=== PATIENT | male | born 1935 | race Caucasian/White ===

== ENCOUNTER 2019-05-25 18:42 | Inpatient (IN) | payer MEDICARE, OTHER ==
[2019-05-25] MEDS ORDERED: Sodium Chloride 0.9% 10 ML Syringe FLUSH PRN (19:06)
[2019-05-25] MEDS ORDERED: Adenosine 6 MG/2 ML SDV IVPUSH ONE (19:06)
[2019-05-25] MEDS ORDERED: Diltiazem 50 MG/10 ML SDV IVPUSH ONE (19:17)
[2019-05-25] MEDS ORDERED: Sodium Chloride 0.9% 1,000 ML IV SCH (19:30)
--- NOTE | 2019-05-25 19:34 | EDM.PDOC ---
ED HPI GENERAL MEDICAL PROBLEM - General Chief Complaint: Respiratory Problem Stated Complaint: poss influenza Time Seen by Provider: 05/25/19 18:59 Source of Information: Reports: Patient, Family (son), RN Notes Reviewed - History of Present Illness INITIAL COMMENTS - FREE TEXT/NARRATIVE: 83 year old male is brought to the ED by his son feeling weak, dizzy short of breath, hypoxic with tachycardia. He has dementia so unable to give any meaningful hx. His son states this seems to have started yesterday. He mostly sat in his chair at home last evening and all day today. He is found to have fever, his son and patient have no idea when that may have started. Occasional cough. Pt was dusky on arrival with sats in the mid 80's but denied chest pain or difficulty breathing although he was obviously tachypnic and in resp. distress on arrival to ED. His son states he has not been eating, drinking or taking his meds for yesterday or today. Hx of heart valve replacement 5 or more yrs ago. Son has gone home to get his meds. Son tells me that he did not get a flu shot this year. He was not feeling well 5 to 6 days ago, was better for a day or 2 and than as stated much more ill yesterday and today. There has been no vomiting, diarrhea and not been been coughing much according to his son that looks after him. Sone states he had a fib before his heart valve surgery, not sure if he has been in a fib after that or not. - Related Data Allergies Allergy/AdvReac Type Severity Reaction Status Date / Time No Known Allergies Allergy Verified 05/25/19 19:00 Home Meds: Home Meds Aspirin [Adult Low Dose Aspirin EC] 81 mg PO DAILY 10/25/13 [History] Finasteride [Proscar] 5 mg PO DAILY 10/25/13 [History] Furosemide [Lasix] 10 mg PO DAILY 10/25/13 [History] Metoprolol Tartrate [Lopressor] 50 mg PO Q12HR 10/25/13 [History] Multivit-Min/FA/Lycopene/Lut [Centrum Silver] 1 each PO DAILY 10/25/13 [History] Rosuvastatin [Crestor] 5 mg PO DAILY 10/25/13 [History] Aspirin [Lite Coat Aspirin] 81 mg PO DAILY 07/16/15 [History] Denosumab [Prolia] 60 mg IM Q6M 08/09/15 [History] Past Medical History HEENT History: Reports: Impaired Vision Cardiovascular History: Reports: Heart Valve Replacement, Hypertension, Other ( See Below) Other Cardiovascular History: aortic valve replacement about 2 yrs ago Respiratory History: Reports: SOB Genitourinary History: Reports: Renal Calculus Neurological History: Reports: None Psychiatric History: Reports: None Endocrine/Metabolic History: Reports: Obesity/BMI 30+ Hematologic History: Reports: None Immunologic History: Reports: None Oncologic (Cancer) History: Reports: Prostate Dermatologic History: Reports: None - Infectious Disease History Infectious Disease History: Reports: None - Past Surgical History HEENT Surgical History: Reports: Cataract Surgery Cardiovascular Surgical History: Reports: Valve Replacement GI Surgical History: Reports: Appendectomy, Cholecystectomy, Colonoscopy Musculoskeletal Surgical History: Reports: Knee Replacement Social & Family History - Tobacco Use Smoking Status *Q: Never Smoker - Caffeine Use Caffeine Use: Reports: Coffee - Recreational Drug Use Recreational Drug Use: No ED ROS GENERAL - Review of Systems Review Of Systems: Unable To Obtain Reason Not Obtained: patient has dementia, cannot provide any meaningful hx ED EXAM, GENERAL - Physical Exam Exam: See Below Exam Limited By: Altered Mental Status (patient is alert but has severe dementia , no short term memory for detail) General Appearance: Moderate Distress Eye Exam: Bilateral Eye: PERRL Nose: Normal Inspection Throat/Mouth: Other (oral mucosa very dry) Head: Atraumatic Neck: Supple, Other (No JVD) Respiratory/Chest: Respiratory Distress (moderate tachypnea), Rhonchi (mild bilat). No: Wheezing Cardiovascular: Tachycardia (regular) GI/Abdominal: Soft, Non-Tender Extremities: No: Pedal Edema, Leg Pain, Increased Warmth, Redness Neurological: Alert, No Motor/Sensory Deficits, Memory Loss Recent Events Skin Exam: Warm, Dry, Other (mildl dusky on arrival to ED). No: Rash EKG INTERPRETATION EKG Date: 05/25/19 Rhythm: Other (Wide QRS tachycardia) Rate (Beats/Min): 149 QRS: RBBB ST-T: Other (Diffuse nonspecific ST changes) Course - Vital Signs Last Recorded V/S: Last Vital Signs Temp 99.9 F 05/25/19 20:10 Pulse 149 H 05/25/19 18:57 Resp 28 H 05/25/19 18:57 BP 147/86 H 05/25/19 18:57 Pulse Ox 97 05/25/19 22:15 - Orders/Labs/Meds Orders: Active Orders 24 hr Category Date Time Status Patient Status [ADT] Routine ADT 05/25/19 20:26 Active Bedrest Bathroom Privileges [RC] ASDIRECTED Care 05/25/19 20:26 Active Blood Glucose Check, Bedside [RC] Q6HR Care 05/25/19 20:26 Active Cardiac Monitoring [RC] CONTINUOUS Care 05/25/19 20:30 Active EKG 12 Lead [EKG Documentation Completion] [RC] STAT Care 05/25/19 19:05 Active Intake and Output [RC] 04,16 Care 05/25/19 20:30 Active Oxygen Therapy [RC] ASDIRECTED Care 05/25/19 19:06 Active Oxygen Therapy [RC] PRN Care 05/25/19 20:26 Active Peripheral IV Care [RC] Q2HR Care 05/25/19 19:06 Active Pulse Oximetry [RC] CONTINUOUS Care 05/25/19 20:30 Active RT Aerosol Therapy [RC] ASDIRECTED Care 05/25/19 20:32 Active Up With Assistance [RC] ASDIRECTED Care 05/25/19 20:26 Active VTE/DVT Education [RC] PER UNIT ROUTINE Care 05/25/19 20:26 Active Vital Signs [RC] Q4HR Care 05/25/19 20:26 Active Nothing per Oral Now Diet [DIET] Diet 05/26/19 Breakfast Active BASIC METABOLIC PANEL,BMP [CHEM] AM Lab 05/26/19 05:11 Ordered CBC WITH AUTO DIFF [HEME] AM Lab 05/26/19 05:11 Ordered CULTURE BLOOD [BC] Stat Lab 05/25/19 19:40 Received CULTURE BLOOD [BC] Stat Lab 05/25/19 20:07 Received MAGNESIUM [CHEM] AM Lab 05/26/19 05:11 Ordered PHOSPHORUS [CHEM] AM Lab 05/26/19 05:11 Ordered PROCALCITONIN [REF] Stat Lab 05/25/19 20:33 Ordered RESPIRATORY PANEL Stat Lab 05/25/19 20:12 Received STREP PNEUMONIAE ANTIGEN [MREF] Stat Lab 05/25/19 20:26 Ordered Albuterol/Ipratropium [DuoNeb 3.0-0.5 MG/3 ML] Med 05/25/19 20:26 Active 3 ml NEB Q4H PRN Diltiazem 125 mg Med 05/25/19 20:30 Active Sodium Chloride 0.9% [Normal Saline] 100 ml IV TITRATE Lactated Ringers [Ringers, Lactated] 1,000 ml Med 05/25/19 20:30 Active IV ASDIRECTED Oseltamivir [Tamiflu] Med 05/25/19 21:00 Active 75 mg PO BID Sodium Chloride 0.9% [Saline Flush] Med 05/25/19 19:06 Active 10 ml FLUSH ASDIRECTED PRN Peripheral IV Insertion Adult [OM.PC] Stat Oth 05/25/19 19:06 Ordered Resuscitation Status Routine Resus Stat 05/25/19 20:26 Ordered Medication Orders Albuterol/Ipratropium (Duoneb 3.0-0.5 Mg/3 Ml) 3 ml NEB Q4H PRN PRN Reason: Wheezing Enoxaparin Sodium (Lovenox) 30 mg SUBCUT DAILY VIANNEY Diltiazem HCl 125 mg/ Sodium (Chloride) 125 mls @ 5 mls/hr IV TITRATE VIANNEY; Protocol Last Admin: 05/25/19 21:22 Dose: 5 mg/hr, 5 mls/hr Lactated Ringer's (Ringers, Lactated) 1,000 mls @ 150 mls/hr IV ASDIRECTED VIANNEY Last Admin: 05/25/19 21:21 Dose: 150 mls/hr Oseltamivir Phosphate (Tamiflu) 75 mg PO BID VIANNEY Last Admin: 05/25/19 20:09 Dose: mg Sodium Chloride (Saline Flush) 10 ml FLUSH ASDIRECTED PRN PRN Reason: Keep Vein Open Last Admin: 05/25/19 19:14 Dose: 10 ml Labs: Laboratory Tests 05/25/19 05/25/19 05/25/19 Range/Units 19:40 19:40 19:40 WBC 10.71 H (4.23-9.07) K/mm3 RBC 4.06 L (4.63-6.08) M/mm3 Hgb 12.5 L (13.7-17.5) gm/dl Hct 38.9 L (40.1-51.0) % MCV 95.8 H (79.0-92.2) fl MCH 30.8 (25.7-32.2) pg MCHC 32.1 L (32.2-35.5) g/dl RDW Std Deviation 48.3 H (35.1-43.9) fL Plt Count 100 L (163-337) K/mm3 MPV 12.7 H (9.4-12.3) fl Neut % (Auto) 91.1 H (34.0-67.9) % Lymph % (Auto) 2.6 L (21.8-53.1) % [place] % (Auto) 5.8 (5.3-12.2) % Eos % (Auto) 0 L (0.8-7.0) Baso % (Auto) 0.1 (0.1-1.2) % Neut # (Auto) 9.76 H (1.78-5.38) K/mm3 Lymph # (Auto) 0.28 L (1.32-3.57) K/mm3 [place] # (Auto) 0.62 (0.30-0.82) K/mm3 Eos # (Auto) 0.00 L (0.04-0.54) K/mm3 Baso # (Auto) 0.01 (0.01-0.08) K/mm3 Manual Slide Review Normal smear PT (9.7-12.0) SECONDS INR Puncture Site ABG pH (7.35-7.45) ABG pCO2 (35.0-45.0) mmHg ABG pO2 (80.0-100.0) mmHg ABG HCO3 (22.0-26.0) meq/L ABG O2 Saturation (96.0-97.0) % ABG Base Excess (-2-2.0) A-a Gradient mmHg O2 Delivery Device Oxygen Flow Rate FiO2 (21.00-100.00) % Sodium 140 (136-145) mEq/L Potassium 3.7 (3.5-5.1) mEq/L Chloride 103 (98-107) mEq/L Carbon Dioxide 23 (21-32) mEq/L Anion Gap 17.7 H (5-15) BUN 32 H (7-18) mg/dL Creatinine 2.0 H (0.7-1.3) mg/dL Est Cr Clr Drug Dosing 28.76 mL/min Estimated GFR (MDRD) 32 (>60) mL/min BUN/Creatinine Ratio 16.0 (14-18) Glucose 197 H (83-115) mg/dL Lactic Acid (0.4-2.0) mmol/L Calcium 8.3 L (8.5-10.1) mg/dL Phosphorus (2.6-4.7) mg/dL Magnesium (1.8-2.4) mg/dl Total Bilirubin 0.9 (0.2-1.0) mg/dL AST 53 H (15-37) U/L ALT 38 (16-63) U/L Alkaline Phosphatase 66 (46-116) U/L Troponin I 0.345 H* (0.00-0.056) ng/mL C-Reactive Protein (<1.0) mg/dL NT-Pro-B Natriuret Pep 9734 H (0-450) pg/mL Total Protein 6.8 (6.4-8.2) g/dl Albumin 2.9 L (3.4-5.0) g/dl Globulin 3.9 gm/dL Albumin/Globulin Ratio 0.7 L (1-2) Mycoplasma pneumon IgM (NEGATIVE) 05/25/19 05/25/19 05/25/19 Range/Units 19:40 19:40 19:40 WBC (4.23-9.07) K/mm3 RBC (4.63-6.08) M/mm3 Hgb (13.7-17.5) gm/dl Hct (40.1-51.0) % MCV (79.0-92.2) fl MCH (25.7-32.2) pg MCHC (32.2-35.5) g/dl RDW Std Deviation (35.1-43.9) fL Plt Count (163-337) K/mm3 MPV (9.4-12.3) fl Neut % (Auto) (34.0-67.9) % Lymph % (Auto) (21.8-53.1) % [place] % (Auto) (5.3-12.2) % Eos % (Auto) (0.8-7.0) Baso % (Auto) (0.1-1.2) % Neut # (Auto) (1.78-5.38) K/mm3 Lymph # (Auto) (1.32-3.57) K/mm3 [place] # (Auto) (0.30-0.82) K/mm3 Eos # (Auto) (0.04-0.54) K/mm3 Baso # (Auto) (0.01-0.08) K/mm3 Manual Slide Review PT 14.1 H (9.7-12.0) SECONDS INR 1.31 Puncture Site ABG pH (7.35-7.45) ABG pCO2 (35.0-45.0) mmHg ABG pO2 (80.0-100.0) mmHg ABG HCO3 (22.0-26.0) meq/L ABG O2 Saturation (96.0-97.0) % ABG Base Excess (-2-2.0) A-a Gradient mmHg O2 Delivery Device Oxygen Flow Rate FiO2 (21.00-100.00) % Sodium (136-145) mEq/L Potassium (3.5-5.1) mEq/L Chloride (98-107) mEq/L Carbon Dioxide (21-32) mEq/L Anion Gap (5-15) BUN (7-18) mg/dL Creatinine (0.7-1.3) mg/dL Est Cr Clr Drug Dosing mL/min Estimated GFR (MDRD) (>60) mL/min BUN/Creatinine Ratio (14-18) Glucose (83-115) mg/dL Lactic Acid 2.6 H* (0.4-2.0) mmol/L Calcium (8.5-10.1) mg/dL Phosphorus (2.6-4.7) mg/dL Magnesium (1.8-2.4) mg/dl Total Bilirubin (0.2-1.0) mg/dL AST (15-37) U/L ALT (16-63) U/L Alkaline Phosphatase (46-116) U/L Troponin I (0.00-0.056) ng/mL C-Reactive Protein 23.1 H* (<1.0) mg/dL NT-Pro-B Natriuret Pep (0-450) pg/mL Total Protein (6.4-8.2) g/dl Albumin (3.4-5.0) g/dl Globulin gm/dL Albumin/Globulin Ratio (1-2) Mycoplasma pneumon IgM (NEGATIVE) 05/25/19 05/25/19 Range/Units 19:40 19:57 WBC (4.23-9.07) K/mm3 RBC (4.63-6.08) M/mm3 Hgb (13.7-17.5) gm/dl Hct (40.1-51.0) % MCV (79.0-92.2) fl MCH (25.7-32.2) pg MCHC (32.2-35.5) g/dl RDW Std Deviation (35.1-43.9) fL Plt Count (163-337) K/mm3 MPV (9.4-12.3) fl Neut % (Auto) (34.0-67.9) % Lymph % (Auto) (21.8-53.1) % [place] % (Auto) (5.3-12.2) % Eos % (Auto) (0.8-7.0) Baso % (Auto) (0.1-1.2) % Neut # (Auto) (1.78-5.38) K/mm3 Lymph # (Auto) (1.32-3.57) K/mm3 [place] # (Auto) (0.30-0.82) K/mm3 Eos # (Auto) (0.04-0.54) K/mm3 Baso # (Auto) (0.01-0.08) K/mm3 Manual Slide Review PT (9.7-12.0) SECONDS INR Puncture Site Lt radial ABG pH 7.49 H (7.35-7.45) ABG pCO2 25.6 L (35.0-45.0) mmHg ABG pO2 59.0 L (80.0-100.0) mmHg ABG HCO3 19.3 L (22.0-26.0) meq/L ABG O2 Saturation 91.8 L (96.0-97.0) % ABG Base Excess -2.4 L (-2-2.0) A-a Gradient 138 mmHg O2 Delivery Device Nasal cannula Oxygen Flow Rate 3.0 FiO2 32.00 (21.00-100.00) % Sodium (136-145) mEq/L Potassium (3.5-5.1) mEq/L Chloride (98-107) mEq/L Carbon Dioxide (21-32) mEq/L Anion Gap (5-15) BUN (7-18) mg/dL Creatinine (0.7-1.3) mg/dL Est Cr Clr Drug Dosing mL/min Estimated GFR (MDRD) (>60) mL/min BUN/Creatinine Ratio (14-18) Glucose (83-115) mg/dL Lactic Acid (0.4-2.0) mmol/L Calcium (8.5-10.1) mg/dL Phosphorus 2.2 L (2.6-4.7) mg/dL Magnesium 1.7 L (1.8-2.4) mg/dl Total Bilirubin (0.2-1.0) mg/dL AST (15-37) U/L ALT (16-63) U/L Alkaline Phosphatase (46-116) U/L Troponin I (0.00-0.056) ng/mL C-Reactive Protein (<1.0) mg/dL NT-Pro-B Natriuret Pep (0-450) pg/mL Total Protein (6.4-8.2) g/dl Albumin (3.4-5.0) g/dl Globulin gm/dL Albumin/Globulin Ratio (1-2) Mycoplasma pneumon IgM Positive H (NEGATIVE) Meds: Medications Generic Name Dose Route Start Last Admin Trade Name Freq PRN Reason Stop Dose Admin Albuterol/Ipratropium 3 ml 05/25/19 20:26 Duoneb 3.0-0.5 Mg/3 Ml NEB Q4H PRN Wheezing Enoxaparin Sodium 30 mg 05/26/19 09:00 Lovenox SUBCUT DAILY VIANNEY Diltiazem HCl 125 mg/ Sodium 125 mls @ 5 mls/hr 05/25/19 20:30 05/25/19 21:22 Chloride IV 5 mg/hr TITRATE VIANNEY 5 mls/hr Administration Protocol 5 MG/HR Lactated Ringer's 1,000 mls @ 150 mls/hr 05/25/19 20:30 05/25/19 21:21 Ringers, Lactated IV 150 mls/hr ASDIRECTED VIANNEY Administration Oseltamivir Phosphate 75 mg 05/25/19 21:00 05/25/19 20:09 Tamiflu PO Not Given BID VIANNEY Sodium Chloride 10 ml 05/25/19 19:06 05/25/19 19:14 Saline Flush FLUSH 10 ml ASDIRECTED PRN Administration Keep Vein Open Discontinued Medications Generic Name Dose Route Start Last Admin Trade Name Freq PRN Reason Stop Dose Admin Adenosine 6 mg 05/25/19 19:06 05/25/19 19:14 Adenocard IVPUSH 05/25/19 19:07 6 mg NOW ONE Administration Diltiazem HCl 20 mg 05/25/19 19:17 05/25/19 19:23 Cardizem IVPUSH 05/25/19 19:18 20 mg ONETIME ONE Administration Sodium Chloride 1,000 mls @ 150 mls/hr 05/25/19 19:30 05/25/19 19:23 Normal Saline IV 150 mls/hr ASDIRECTED VIANNEY Administration Levofloxacin/Dextrose 750 mg/ 150 mls @ 100 mls/hr 05/25/19 19:40 05/25/19 20 :13 Premix IV 05/25/19 21:09 100 mls/hr ONETIME ONE Administration - Re-Assessments/Exams Free Text/Narrative Re-Assessment/Exam: 05/25/19 20:32. initial EKG showed regular slightly wide complex tachycard, unclear if SVT or a fib with RVR. We did give a 6 mg dose adenosine and with that the rate slowed to where I could see beat to beat irregularity. He did not convert with that. Have give 10 mg diltiazam IV and with that rate has slowed to 120's. Have given a 2nd 10 mg dose and rate now down to 115 to 120. There was concern for CHF with hx valvular heart disease so started initial fluid NS at 150/hr. He did drop a BP down to 100 systolic, at that point ordered a 500 ml plus additional 500 ml NS bolus. ABG' ordered and back with p02 59, 02 sat 91.5. Ph 7.49, Co2 25.9 showing mild resp. alkalosis. CXR shows mild haziness L lower lower lung, probable infiltrate. 05/25/19 20:44. Lactic acid is back at 2.6. At time of my initial exam coming on duty at 19:00 I was not informed that he had fever or that he met sepsis alert criteria. I was only made aware that he presented with tachycardia, dyspnea, hypoxia and as noted found to be in either SVT, or A fib with RVR. The initial focus was to determine his rythm and stabilize his rythm which was done. After appropriate orders entered I was informed around 1911 that he had a temp of 101.9., onset of fever unknown. I than did add BCultures times 2, Lactic acid, INR. Therefore sepsis bundle not ordered. Patient at this time is doing much better, BP 122/76. Heart rate is down to 110 to 115. He is resting comfortably, sats low 90's on 02 3 L NC. He did get NS bolus of about 1000 ml and has had LR bolus of 500 ml currently running at 150/hr. There is risk of fluid overload if given the 30 ml/KG bolus for septic protocol which would require about [address] Hall has seen patient and assumed care. I have passed the Lactic acid result of 2.6 on to her and she will continue appropriate fluid management. 05/25/19 21:32. Other labs are back showing a C-reactive protein 23.1 UN 32 creatinine 2.0 anion gap 17.7, troponin 0 0.345. elevated troponin likely caused by demand ischemia in secondary to hypoxia and A. fib with RVR. Will need to be trended. Patient still awaiting admission to ICU. Current heart rate 98 blood pressure 92/71 with an MAP of 79. He is resting comfortably, good cap refill. Skin warm and dry. No further fluid orders have yet been given by Dr. Hall. Will give a further 500 ml LR bolus at this time. Patient being transferred over to ICU at this time. I see that his screen for mycoplasma did come back positive. Departure - Departure Time of Disposition: 20:30 Disposition: Admitted As Inpatient 64 Condition: Serious Clinical Impression: Hypoxia, Atrial fibrillation with RVR Pneumonia Qualifiers: Pneumonia type: due to Mycoplasma pneumoniae Laterality: left Lung location: unspecified part of lung Qualified Code(s): J15.7 - Pneumonia due to Mycoplasma pneumoniae - Discharge Information Sepsis Event Note - Evaluation Sepsis Screening Result: Possible Severe Sepsis Risk - Focused Exam Vital Signs: Vital Signs Temp Pulse Resp BP Pulse Ox Pulse Ox 05/25/19 20:10 99.9 F 05/25/19 19:10 95 05/25/19 19:06 92 L 05/25/19 18:57 101.9 F H 149 H 28 H 147/86 H 85 L Date Exam was Performed: 05/25/19 Time Exam was Performed: 22:45 ED Communication - Discussed Case With (1) Discussed Case With (1): Admitting Provider (Dr Hall, decision to admit at about 19:45.) - My Orders Last 24 Hours: My Active Orders 05/25/19 19:05 EKG 12 Lead [EKG Documentation Completion] [RC] STAT 05/25/19 19:06 Oxygen Therapy [RC] ASDIRECTED Peripheral IV Care [RC] Q2HR Sodium Chloride 0.9% [Saline Flush] 10 ml FLUSH ASDIRECTED PRN Peripheral IV Insertion Adult [OM.PC] Stat 05/25/19 19:40 CULTURE BLOOD [BC] Stat 05/25/19 20:07 CULTURE BLOOD [BC] Stat 05/25/19 20:30 Diltiazem 125 mg Sodium Chloride 0.9% [Normal Saline] 100 ml IV TITRATE 05/25/19 21:00 Oseltamivir [Tamiflu] 75 mg PO BID - Assessment/Plan Last 24 Hours: My Active Orders 05/25/19 19:05 EKG 12 Lead [EKG Documentation Completion] [RC] STAT 05/25/19 19:06 Oxygen Therapy [RC] ASDIRECTED Peripheral IV Care [RC] Q2HR Sodium Chloride 0.9% [Saline Flush] 10 ml FLUSH ASDIRECTED PRN Peripheral IV Insertion Adult [OM.PC] Stat 05/25/19 19:40 CULTURE BLOOD [BC] Stat 05/25/19 20:07 CULTURE BLOOD [BC] Stat 05/25/19 20:30 Diltiazem 125 mg Sodium Chloride 0.9% [Normal Saline] 100 ml IV TITRATE 05/25/19 21:00 Oseltamivir [Tamiflu] 75 mg PO BID
[2019-05-25] MEDS ORDERED: Levofloxacin/Dextrose 5%-Water 750 MG in Premix Bag 1 BAG IV ONE (19:40)
--- NOTE | 2019-05-25 20:07 | CR ---
Chest: Portable view of the chest was obtained. Comparison: Previous chest x-ray of 06/18/13. Heart size and mediastinum are within normal limits for portable technique. Haziness within the lateral left costophrenic angle is seen and difficult to exclude pleural effusion. Lungs otherwise are clear. Previous sternotomy is noted. Degenerative change is seen within the right shoulder. Impression: 1. Haziness within the lateral left costophrenic angle and difficult to exclude small pleural effusion. 2. Other findings as noted above. 3. Nothing acute is otherwise seen. Diagnostic code #3 Study was dictated in [place] Standard Time
[2019-05-25] MEDS: Oseltamivir 75 MG Cap PO SCH (20:09)
[2019-05-25] MEDS ORDERED: Albuterol/Ipratropium 3.0-0.5 MG/3 ML Neb Soln NEB PRN (20:26)
[2019-05-25] MEDS ORDERED: Diltiazem 125 MG in Sodium Chloride 0.9% 100 ML IV SCH (20:30)
--- NOTE | 2019-05-25 20:39 | PCM.HP.2 ---
H&P History of Present Illness - General Date of Service: 05/25/19 Admit Problem/Dx: Admission Diagnosis/Problem Admission Diagnosis/Problem Atrial fibrillation with rapid ventricular response - History of Present Illness Initial Comments - Free Text/Narative: History obtained from son due to AMS of patient. This is an 83-year old male with past medical history of hypertension and prostate cancer who comes to the ED brought in by son for confusion, sweating and pallor. As per son patient was in usual health up to last Thursday when he was complaining of general malaise, this lasted for approximately 48 hours, he was OK on Thursday. Yesterday patient again was complaining of malaise, as per son he didn't come back to work after his dentist appointment in the morning so he went to check on patient and found him sitting on his chair with a blanket on complaining of "not feeling good". Son went to check on him again today and found him in his chair again but was pale, mumbling and clammy for which he decided to bring him to the ED for further evaluation. Son works with him every day and has not noted any coughing, patient has not complained about anything either. Lower Back Pain Score (Numeric/FACES): 4 - Related Data Allergies/Adverse Reactions: Allergies Allergy/AdvReac Type Severity Reaction Status Date / Time No Known Allergies Allergy Verified 05/26/19 00:29 Home Medications: Home Meds Finasteride [Proscar] 5 mg PO DAILY 10/25/13 [History] Furosemide [Lasix] 10 mg PO DAILY 10/25/13 [History] Rosuvastatin [Crestor] 5 mg PO DAILY 10/25/13 [History] Denosumab [Prolia] 60 mg IM Q1M 08/09/15 [History] Enzalutamide [Xtandi] 160 mg PO DAILY 05/26/19 [History] predniSONE 5 mg PO BID 05/26/19 [History] Diltiazem IR [Cardizem] 30 mg PO Q6H #120 tablet 05/31/19 [Rx] cephALEXin [Cephalexin] 1,000 mg PO TID #42 tablet 05/31/19 [Rx] Past Medical History HEENT History: Reports: Impaired Vision Cardiovascular History: Reports: Heart Valve Replacement, Hypertension, Other ( See Below) Other Cardiovascular History: aortic valve replacement about 2 yrs ago Respiratory History: Reports: SOB Genitourinary History: Reports: Renal Calculus Neurological History: Reports: None Psychiatric History: Reports: None Endocrine/Metabolic History: Reports: Obesity/BMI 30+ Hematologic History: Reports: None Immunologic History: Reports: None Oncologic (Cancer) History: Reports: Prostate Dermatologic History: Reports: None - Infectious Disease History Infectious Disease History: Reports: None - Past Surgical History HEENT Surgical History: Reports: Cataract Surgery Cardiovascular Surgical History: Reports: Valve Replacement GI Surgical History: Reports: Appendectomy, Cholecystectomy, Colonoscopy Musculoskeletal Surgical History: Reports: Knee Replacement Social & Family History - Tobacco Use Smoking Status *Q: Never Smoker - Caffeine Use Caffeine Use: Reports: Coffee - Recreational Drug Use Recreational Drug Use: No H&P Review of Systems - Review of Systems: Review Of Systems: Unable To Obtain Reason Not Obtained: Confused and mumbling Exam - Exam Exam: See Below - Vital Signs Vital Signs: Last Vital Signs Temp 101.9 F H 05/25/19 18:57 Pulse 149 H 05/25/19 18:57 Resp 28 H 05/25/19 18:57 BP 147/86 H 05/25/19 18:57 Pulse Ox 92 L 05/25/19 19:06 Weight: 102.058 kg - Exam Quality Assessment: Supplemental Oxygen General: Alert, Moderate Distress, Other (confused, mumbling) HEENT: Conjunctiva Clear. No: Mucosa Moist & [place] Neck: Supple, Trachea Midline, Full Range of Motion. No: Lymphadenopathy Lungs: Decreased Breath Sounds, Crackles. No: Rales, Rhonchi, Rub, Stridor, Wheezing Cardiovascular: Irregular Rhythm, Tachycardia. No: Systolic Murmur, Diastolic Murmur, Rubs, Gallop/S3, Gallop/S4 GI/Abdominal Exam: Normal Bowel Sounds, Soft, Non-Tender, No Organomegaly. No: Distended, Guarding, Rigid, Rebound, Tender Back Exam: Normal Inspection. No: CVA Tenderness (L), CVA Tenderness (R) Extremities: Normal Inspection, Normal Range of Motion, Slow Capillary Refill Skin: Warm, Intact Psychiatric: Alert, Normal Affect, Normal Mood - Patient Data Lab Results Last 24 hrs: Laboratory Results - last 24 hr 05/25/19 Range/Units 19:57 Puncture Site Lt radial ABG pH 7.49 H (7.35-7.45) ABG pCO2 25.6 L (35.0-45.0) mmHg ABG pO2 59.0 L (80.0-100.0) mmHg ABG HCO3 19.3 L (22.0-26.0) meq/L ABG O2 Saturation 91.8 L (96.0-97.0) % ABG Base Excess -2.4 L (-2-2.0) A-a Gradient 138 mmHg O2 Delivery Device Nasal cannula Oxygen Flow Rate 3.0 FiO2 32.00 (21.00-100.00) % Result Diagrams: 05/31/19 10:05 05/29/19 05:30 Kapil Results Last 24 hrs: Microbiology 05/25/19 19:19 Influenza Type A Antigen Screen - Final Nasopharyngeal Swab NEGATIVE INFLUENZA A VIRUS AG REFERENCE RANGE: NEGATIVE Influenza Type B Antigen Screen - Final NEGATIVE INFLUENZA B VIRUS AG REFERENCE RANGE: NEGATIVE Sepsis Event Note - Evaluation Sepsis Screening Result: Possible Severe Sepsis Risk - Focused Exam Vital Signs: Vital Signs Temp Pulse Resp BP Pulse Ox Pulse Ox 05/25/19 19:06 92 L 05/25/19 18:57 101.9 F H 149 H 28 H 147/86 H 85 L Date Exam was Performed: 06/08/19 Time Exam was Performed: 08:58 - Problem List (1) Sepsis SNOMED Code(s): 69342435 ICD Code: A41.9 - SEPSIS, UNSPECIFIED ORGANISM Status: Acute (2) Community acquired bacterial pneumonia SNOMED Code(s): 772396397, 671645016 ICD Code: J15.9 - UNSPECIFIED BACTERIAL PNEUMONIA Status: Acute (3) Leukocytosis SNOMED Code(s): 145832711, 716496261 ICD Code: D72.829 - ELEVATED WHITE BLOOD CELL COUNT, UNSPECIFIED Status: Acute (4) Macrocytic anemia SNOMED Code(s): 62207229 ICD Code: D53.9 - NUTRITIONAL ANEMIA, UNSPECIFIED Status: Acute (5) Thrombocytopenia SNOMED Code(s): 713352380 ICD Code: D69.6 - THROMBOCYTOPENIA, UNSPECIFIED Status: Acute (6) Hypoxemia SNOMED Code(s): 453666285 ICD Code: R09.02 - HYPOXEMIA Status: Acute (7) Acute kidney injury SNOMED Code(s): 84133959, 81925425 ICD Code: N17.9 - ACUTE KIDNEY FAILURE, UNSPECIFIED Status: Acute (8) Chronic kidney disease (CKD) SNOMED Code(s): 072280886 ICD Code: N18.9 - CHRONIC KIDNEY DISEASE, UNSPECIFIED Status: Acute (9) Hypophosphatemia SNOMED Code(s): 3809276 ICD Code: E83.39 - OTHER DISORDERS OF PHOSPHORUS METABOLISM Status: Acute (10) Hypomagnesemia SNOMED Code(s): 193000836 ICD Code: E83.42 - HYPOMAGNESEMIA Status: Acute (11) Hypertension SNOMED Code(s): 76553825 ICD Code: I10 - ESSENTIAL (PRIMARY) HYPERTENSION Status: Acute (12) Prostate cancer SNOMED Code(s): 339804452 ICD Code: C61 - MALIGNANT NEOPLASM OF PROSTATE Status: Acute (13) UTI (urinary tract infection) SNOMED Code(s): 33169504 ICD Code: N39.0 - URINARY TRACT INFECTION, SITE NOT SPECIFIED Status: Acute Qualifiers: Urinary tract infection type: acute cystitis Hematuria presence: without hematuria Qualified Code(s): N30.00 - Acute cystitis without hematuria (14) Atrial fibrillation with RVR SNOMED Code(s): 204533853336729 ICD Code: I48.91 - UNSPECIFIED ATRIAL FIBRILLATION Status: Acute Problem List Initiated/Reviewed/Updated: Yes Assessment/Plan Comment:: Multifactorial sepsis Hypoxemia 2/2 Community acquired bacterial pneumonia UTI (urinary tract infection) Leukocytosis Fever + tachycardia + tachypnea + pulmonary/urinary source Normal lactic acid Likely volume depleted PLAN - Start Levaquin - Monitor volume status - Repeat lactic acid in 3 hours Atrial fibrillation with RVR HR on admission 149x' PLAN - Diltiazem drip Acute kidney injury Chronic kidney disease (CKD) Hypophosphatemia Hypomagnesemia GFR on admission 32 PLAN - Replace electrolytes - Monitor urine output - Renally dosed medications - Avoid nephrotoxic medications Hypertension BP on admission 147/86 PLAN - Diltiazem drip - Continue home medications once available Prostate cancer Actively pursuing treatment On Xtandi at home PLAN - Continue home medications PROPHYLAXIS DVT- contraindicated due to thrombocytopenia GI- not indicated CODE STATUS: DNR/DNI DISPOSITION: Patient will be admitted to the ICU for diltiazem drip, will continue to monitor volume status and VS. From home, alone, son lives close by and they work together daily. Independent on all ADLs and IADLs - Mortality Measure Prognosis:: Good
[2019-05-25] MEDS: Lactated Ringers 1,000 ML IV SCH (21:21)
[2019-05-26] MEDS: Lactated Ringers 1,000 ML IV SCH ×4 (01:47→23:55)
[2019-05-26] MEDS: Oseltamivir 75 MG Cap PO SCH (08:39)
[2019-05-26] MEDS ORDERED: Enoxaparin 40 MG/0.4 ML Syringe SUBCUT SCH (09:00)
[2019-05-26] MEDS ORDERED: Enoxaparin 30 MG/0.3 ML Syringe SUBCUT SCH (09:00)
[2019-05-26] MEDS ORDERED: Magnesium Sulfate/Water 4 GM in Premix Bag 1 BAG IV ONE (09:30)
[2019-05-26] MEDS ORDERED: Potassium Phosphates 30 MMOLE in Sodium Chloride 0.9% 500 ML IV ONE (11:00)
[2019-05-26] MEDS: Diltiazem IR 30 MG Tab PO SCH ×2 (13:17→18:12)
--- NOTE | 2019-05-26 15:08 | CT ---
CT chest Technique: Multiple axial sections through the chest were obtained as a high resolution protocol. Intravenous contrast was not utilized. Comparison: Prior chest CT study of 02/18/18 is available. Findings: Small left-sided pleural effusion appears to be present. Large rim calcified splenic lesion is seen which is stable from prior CT exam. Aorta shows no aneurysm. Minimal atelectasis is seen within the left lung base. Lungs otherwise are clear. No significant pulmonary fibrosis is appreciated. Prior sternotomy is noted. Impression: 1. Small left-sided pleural effusion. 2. Other findings as noted above. 3. No significant pulmonary fibrosis is seen. Diagnostic code #2 This report was dictated in [place] Standard Time
[2019-05-26] MEDS: Oseltamivir 30 MG Cap PO SCH (20:43)
--- NOTE | 2019-05-26 21:44 | PCM.PN ---
- General Info Date of Service: 05/26/19 Admission Dx/Problem (Free Text): Slept [place] Tolerating diet No current complaints Tolerating diet - Patient Data Vitals - Most Recent: Last Vital Signs Temp 98.8 F 05/26/19 20:00 Pulse 82 05/26/19 02:01 Resp 20 05/26/19 20:00 BP 116/42 L 05/26/19 20:00 Pulse Ox 94 L 05/26/19 20:00 Weight - Most Recent: 107.275 kg - Exam Physical Findings Comments:: Quality Assessment: Supplemental Oxygen General: Alert, Moderate Distress, Other (confused, mumbling) HEENT: Conjunctiva Clear. No: Mucosa Moist & [place] Neck: Supple, Trachea Midline, Full Range of Motion. No: Lymphadenopathy Lungs: Decreased Breath Sounds, Crackles. No: Rales, Rhonchi, Rub, Stridor, Wheezing Cardiovascular: Irregular Rhythm, Tachycardia. No: Systolic Murmur, Diastolic Murmur, Rubs, Gallop/S3, Gallop/S4 GI/Abdominal Exam: Normal Bowel Sounds, Soft, Non-Tender, No Organomegaly. No: Distended, Guarding, Rigid, Rebound, Tender Back Exam: Normal Inspection. No: CVA Tenderness (L), CVA Tenderness (R) Extremities: Normal Inspection, Normal Range of Motion, Slow Capillary Refill Skin: Warm, Intact Psychiatric: Alert, Normal Affect, Normal Mood Sepsis Event Note - Evaluation Sepsis Screening Result: No Definite Risk - Focused Exam Vital Signs: Vital Signs Temp Resp BP Pulse Ox 05/26/19 20:00 98.8 F 20 116/42 L 94 L 05/26/19 16:00 98.7 F 19 128/67 96 05/26/19 14:00 19 122/65 96 05/26/19 13:00 127/72 05/26/19 12:00 98.7 F 19 110/57 L 97 05/26/19 11:00 129/73 05/26/19 10:00 111/61 Date Exam was Performed: 06/08/19 Time Exam was Performed: 09:25 - Problem List & Annotations (1) Bacteremia due to Gram-positive bacteria SNOMED Code(s): 497883613342 Code(s): R78.81 - BACTEREMIA Status: Acute (2) Acute kidney injury SNOMED Code(s): 33851074, 01012495 Code(s): N17.9 - ACUTE KIDNEY FAILURE, UNSPECIFIED Status: Acute (3) Atrial fibrillation with RVR SNOMED Code(s): 396701516338700 Code(s): I48.91 - UNSPECIFIED ATRIAL FIBRILLATION Status: Acute (4) Chronic kidney disease (CKD) SNOMED Code(s): 279734338 Code(s): N18.9 - CHRONIC KIDNEY DISEASE, UNSPECIFIED Status: Acute (5) Community acquired bacterial pneumonia SNOMED Code(s): 653595202, 616843833 Code(s): J15.9 - UNSPECIFIED BACTERIAL PNEUMONIA Status: Acute (6) Hypertension SNOMED Code(s): 78674748 Code(s): I10 - ESSENTIAL (PRIMARY) HYPERTENSION Status: Acute (7) Hypomagnesemia SNOMED Code(s): 021941735 Code(s): E83.42 - HYPOMAGNESEMIA Status: Acute (8) Hypophosphatemia SNOMED Code(s): 3641036 Code(s): E83.39 - OTHER DISORDERS OF PHOSPHORUS METABOLISM Status: Acute (9) Hypoxemia SNOMED Code(s): 207350337 Code(s): R09.02 - HYPOXEMIA Status: Acute (10) Leukocytosis SNOMED Code(s): 147576938, 411464412 Code(s): D72.829 - ELEVATED WHITE BLOOD CELL COUNT, UNSPECIFIED Status: Acute (11) Macrocytic anemia SNOMED Code(s): 60751554 Code(s): D53.9 - NUTRITIONAL ANEMIA, UNSPECIFIED Status: Acute (12) Pneumonia SNOMED Code(s): 974255389 Code(s): J18.9 - PNEUMONIA, UNSPECIFIED ORGANISM Status: Acute Qualifiers: Pneumonia type: due to Mycoplasma pneumoniae Laterality: left Lung location: unspecified part of lung Qualified Code(s): J15.7 - Pneumonia due to Mycoplasma pneumoniae (13) Prostate cancer SNOMED Code(s): 105955755 Code(s): C61 - MALIGNANT NEOPLASM OF PROSTATE Status: Acute (14) Sepsis SNOMED Code(s): 12170831 Code(s): A41.9 - SEPSIS, UNSPECIFIED ORGANISM Status: Acute (15) Thrombocytopenia SNOMED Code(s): 320152956 Code(s): D69.6 - THROMBOCYTOPENIA, UNSPECIFIED Status: Acute (16) UTI (urinary tract infection) SNOMED Code(s): 86738372 Code(s): N39.0 - URINARY TRACT INFECTION, SITE NOT SPECIFIED Status: Acute Qualifiers: Urinary tract infection type: acute cystitis Hematuria presence: without hematuria Qualified Code(s): N30.00 - Acute cystitis without hematuria - Problem List Review Problem List Initiated/Reviewed/Updated: Yes - Plan Plan:: Multifactorial sepsis Bacteremia 2/2 gram + cocci Hypoxemia 2/2 Community acquired bacterial pneumonia 2/2 mycoplasma UTI (urinary tract infection) Leukocytosis Fever + tachycardia + tachypnea + pulmonary/urinary source--> normal lactic acid Volume status improved 3/4 blood cultures + gram positive cocci Tmax 101.9 (admission fever) PLAN - Start azithromycin - Monitor volume status - Repeat blood cultures tomorrow - Echocardiogram - Monitor temperature and reculture if febrile Atrial fibrillation with RVR HR trend 82-99 PLAN - Diltiazem drip still on - Calculate diltiazem PO dose Acute kidney injury Chronic kidney disease (CKD) Hypophosphatemia Hypomagnesemia GFR on admission 32--> 44 today PLAN - Replace electrolytes - Monitor urine output - Renally dosed medications - Avoid nephrotoxic medications Hypertension BP on admission 147/86 PLAN - Diltiazem drip - Continue home medications once available Prostate cancer Actively pursuing treatment On Xtandi at home PLAN - Continue home medications PROPHYLAXIS DVT- contraindicated due to thrombocytopenia GI- not indicated CODE STATUS: DNR/DNI DISPOSITION: Patient will remain the ICU for diltiazem drip, will continue to monitor volume status and VS. From home, alone, son lives close by and they work together daily. Independent on all ADLs and IADLs
[2019-05-27] MEDS: Diltiazem IR 30 MG Tab PO SCH ×5 (00:45→21:40)
[2019-05-27 04:47] LABS: BORDETELLA PARAPERT IS1001 Not Detected (Not Detected)
[2019-05-27] MEDS: predniSONE 5 MG Tab PO SCH ×2 (08:46→21:40)
[2019-05-27] MEDS: Oseltamivir 30 MG Cap PO SCH (08:46)
[2019-05-27] MEDS: ENZALUTAMIDE 40 MG PO SCH (08:49)
[2019-05-27] MEDS: Levofloxacin/Dextrose 5%-Water 750 MG in Premix Bag 1 BAG IV SCH (08:49)
[2019-05-27] MEDS ORDERED: Levofloxacin/Dextrose 5%-Water 750 MG in Premix Bag 1 BAG IV SCH (09:00)
[2019-05-27] MEDS ORDERED: Potassium Phosphates 30 MMOLE in Sodium Chloride 0.9% 500 ML IV ONE (13:00)
--- NOTE | 2019-05-27 20:46 | PCM.PN ---
- General Info Date of Service: 05/27/19 Subjective Update: slept ok tolerating diet - Patient Data Vitals - Most Recent: Last Vital Signs Temp 97.7 F 05/27/19 15:18 Pulse 95 05/27/19 15:18 Resp 16 05/27/19 15:18 BP 116/77 05/27/19 15:18 Pulse Ox 94 L 05/27/19 15:18 Weight - Most Recent: 110.677 kg I&O - Last 24 Hours: Intake & Output 05/27/19 05/27/19 05/27/19 06:59 14:59 22:59 Intake Total 1912 470 Output Total 0 2300 Balance 1912 0 -1830 Lab Results Last 24 Hours: Laboratory Results - last 24 hr 05/25/19 05/27/19 05/27/19 Range/Units 20:12 05:20 05:20 WBC 8.26 (4.23-9.07) K/mm3 RBC 3.74 L (4.63-6.08) M/mm3 Hgb 11.2 L (13.7-17.5) gm/dl Hct 35.3 L (40.1-51.0) % MCV 94.4 H (79.0-92.2) fl MCH 29.9 (25.7-32.2) pg MCHC 31.7 L (32.2-35.5) g/dl RDW Std Deviation 48.8 H (35.1-43.9) fL Plt Count 76 L (163-337) K/mm3 MPV 13.8 H (9.4-12.3) fl Neut % (Auto) 78.6 H (34.0-67.9) % Lymph % (Auto) 10.0 L (21.8-53.1) % Haines % (Auto) 10.3 (5.3-12.2) % Eos % (Auto) 0 L (0.8-7.0) Baso % (Auto) 0.1 (0.1-1.2) % Neut # (Auto) 6.49 H (1.78-5.38) K/mm3 Lymph # (Auto) 0.83 L (1.32-3.57) K/mm3 Haines # (Auto) 0.85 H (0.30-0.82) K/mm3 Eos # (Auto) 0.00 L (0.04-0.54) K/mm3 Baso # (Auto) 0.01 (0.01-0.08) K/mm3 Manual Slide Review Abnormal smear Puncture Site ABG pH (7.35-7.45) ABG pCO2 (35.0-45.0) mmHg ABG pO2 (80.0-100.0) mmHg ABG HCO3 (22.0-26.0) meq/L ABG O2 Saturation (96.0-97.0) % ABG Base Excess (-2-2.0) Joshua Test O2 Delivery Device FiO2 (21.00-100.00) % Sodium 138 (136-145) mEq/L Potassium 3.7 (3.5-5.1) mEq/L Chloride 105 (98-107) mEq/L Carbon Dioxide 23 (21-32) mEq/L Anion Gap 13.7 (5-15) BUN 23 H (7-18) mg/dL Creatinine 1.2 (0.7-1.3) mg/dL Est Cr Clr Drug Dosing 47.93 mL/min Estimated GFR (MDRD) 58 (>60) mL/min BUN/Creatinine Ratio 19.2 H (14-18) Glucose 133 H (83-115) mg/dL Calcium 7.4 L (8.5-10.1) mg/dL Phosphorus 1.7 L (2.6-4.7) mg/dL Magnesium 2.4 (1.8-2.4) mg/dl Adenovirus (PCR) Not detected (Not Detected) B. pertussis DNA (PCR) Not detected (Not Detected) B.parapertussis DNA PCR Not detected (Not Detected) C. pneumoniae DNA (PCR) Not detected (Not Detected) Coronavirus (PCR) Not detected (Not Detected) Human Metapneumovir PCR Not detected (Not Detected) Influenza A (RT-PCR) Not detected (Not Detected) Influenza B (RT-PCR) Not detected (Not Detected) M. pneumoniae (PCR) Not detected (Not Detected) Parainfluen 1,2,3,4 PCR Not detected (Not Detected) RSV (PCR) Not detected (Not Detected) Entero/Rhino (PCR) Not detected (Not Detected) 05/27/19 Range/Units 05:20 WBC (4.23-9.07) K/mm3 RBC (4.63-6.08) M/mm3 Hgb (13.7-17.5) gm/dl Hct (40.1-51.0) % MCV (79.0-92.2) fl MCH (25.7-32.2) pg MCHC (32.2-35.5) g/dl RDW Std Deviation (35.1-43.9) fL Plt Count (163-337) K/mm3 MPV (9.4-12.3) fl Neut % (Auto) (34.0-67.9) % Lymph % (Auto) (21.8-53.1) % Haines % (Auto) (5.3-12.2) % Eos % (Auto) (0.8-7.0) Baso % (Auto) (0.1-1.2) % Neut # (Auto) (1.78-5.38) K/mm3 Lymph # (Auto) (1.32-3.57) K/mm3 Haines # (Auto) (0.30-0.82) K/mm3 Eos # (Auto) (0.04-0.54) K/mm3 Baso # (Auto) (0.01-0.08) K/mm3 Manual Slide Review Puncture Site Lt radial ABG pH 7.49 H (7.35-7.45) ABG pCO2 28.3 L (35.0-45.0) mmHg ABG pO2 62.0 L (80.0-100.0) mmHg ABG HCO3 21.3 L (22.0-26.0) meq/L ABG O2 Saturation 94.4 L (96.0-97.0) % ABG Base Excess -0.8 (-2-2.0) Joshua Test Positive O2 Delivery Device Room air FiO2 0.00 L (21.00-100.00) % Sodium (136-145) mEq/L Potassium (3.5-5.1) mEq/L Chloride (98-107) mEq/L Carbon Dioxide (21-32) mEq/L Anion Gap (5-15) BUN (7-18) mg/dL Creatinine (0.7-1.3) mg/dL Est Cr Clr Drug Dosing mL/min Estimated GFR (MDRD) (>60) mL/min BUN/Creatinine Ratio (14-18) Glucose (83-115) mg/dL Calcium (8.5-10.1) mg/dL Phosphorus (2.6-4.7) mg/dL Magnesium (1.8-2.4) mg/dl Adenovirus (PCR) (Not Detected) B. pertussis DNA (PCR) (Not Detected) B.parapertussis DNA PCR (Not Detected) C. pneumoniae DNA (PCR) (Not Detected) Coronavirus (PCR) (Not Detected) Human Metapneumovir PCR (Not Detected) Influenza A (RT-PCR) (Not Detected) Influenza B (RT-PCR) (Not Detected) M. pneumoniae (PCR) (Not Detected) Parainfluen 1,2,3,4 PCR (Not Detected) RSV (PCR) (Not Detected) Entero/Rhino (PCR) (Not Detected) Kapil Results Last 24 Hours: Microbiology 05/26/19 05:25 Urine Culture - Preliminary Urine, Clean Catch 05/25/19 19:40 Aerobic Blood Culture - Preliminary Blood Beta Streptococcus Group B Anaerobic Blood Culture - Preliminary Beta Streptococcus Group B 05/25/19 20:07 Aerobic Blood Culture - Preliminary Blood Beta Streptococcus Group B Anaerobic Blood Culture - Preliminary Beta Streptococcus Group B 05/26/19 05:25 Streptococcus pneumoniae Antigen (M - Final Urine Med Orders - Current: Current Medications Albuterol/Ipratropium (Duoneb 3.0-0.5 Mg/3 Ml) 3 ml NEB Q4H PRN PRN Reason: Wheezing Diltiazem HCl (Cardizem) 30 mg PO Q6H [facility] Last Admin: 05/27/19 15:19 Dose: 30 mg Levofloxacin/Dextrose 750 mg/ (Premix) 150 mls @ 100 mls/hr IV Q24H [facility] Last Admin: 05/27/19 08:49 Dose: 100 mls/hr Enzalutamide [Xtandi (] 40 Mg CapsPtom) 160 mg PO DAILY [facility] Last Admin: 05/27/19 08:49 Dose: 160 mg Prednisone (Prednisone) 5 mg PO BID [facility] Last Admin: 05/27/19 08:46 Dose: 5 mg Sodium Chloride (Saline Flush) 10 ml FLUSH ASDIRECTED PRN PRN Reason: Keep Vein Open Last Admin: 05/25/19 19:14 Dose: 10 ml Discontinued Medications Adenosine (Adenocard) 6 mg IVPUSH NOW ONE Stop: 05/25/19 19:07 Last Admin: 05/25/19 19:14 Dose: 6 mg Diltiazem HCl (Cardizem) 20 mg IVPUSH ONETIME ONE Stop: 05/25/19 19:18 Last Admin: 05/25/19 19:23 Dose: 20 mg Diltiazem HCl (Cardizem) 30 mg PO Q6H [facility] Last Admin: 05/27/19 06:29 Dose: 30 mg Enoxaparin Sodium (Lovenox) 30 mg SUBCUT DAILY [facility] Last Admin: 05/26/19 08:39 Dose: Not Given Sodium Chloride (Normal Saline) 1,000 mls @ 150 mls/hr IV ASDIRECTED [facility] Last Admin: 05/25/19 19:23 Dose: 150 mls/hr Levofloxacin/Dextrose 750 mg/ (Premix) 150 mls @ 100 mls/hr IV ONETIME ONE Stop: 05/25/19 21:09 Last Admin: 05/25/19 20:13 Dose: 100 mls/hr Diltiazem HCl 125 mg/ Sodium (Chloride) 125 mls @ 5 mls/hr IV TITRATE [facility]; Protocol Last Titration: 05/25/19 22:56 Dose: 2.5 mg/hr, 2.5 mls/hr Lactated Ringer's (Ringers, Lactated) 1,000 mls @ 150 mls/hr IV ASDIRECTED [facility] Last Admin: 05/26/19 23:55 Dose: 150 mls/hr Magnesium Sulfate 4 gm/ Premix 100 mls @ 25 mls/hr IV ONETIME ONE Stop: 05/26/19 13:29 Last Admin: 05/26/19 10:27 Dose: 25 mls/hr Potassium Phosphate 30 mmole/ (Sodium Chloride) 510 mls @ 102 mls/hr IV ONETIME ONE Stop: 05/26/19 15:59 Last Admin: 05/26/19 11:00 Dose: 102 mls/hr Levofloxacin/Dextrose 750 mg/ (Premix) 150 mls @ 100 mls/hr IV Q48H [facility] Potassium Phosphate 30 mmole/ (Sodium Chloride) 510 mls @ 102 mls/hr IV ONETIME ONE Stop: 05/27/19 17:59 Last Admin: 05/27/19 14:21 Dose: 102 mls/hr Oseltamivir Phosphate (Tamiflu) 75 mg PO BID [facility] Last Admin: 05/26/19 08:39 Dose: 75 mg Oseltamivir Phosphate (Tamiflu) 30 mg PO BID [facility] Last Admin: 05/27/19 08:46 Dose: 30 mg - Exam Physical Findings Comments:: Quality Assessment: Supplemental Oxygen General: Alert, Moderate Distress, Other (confused, mumbling) HEENT: Conjunctiva Clear. No: Mucosa Moist & [place] Neck: Supple, Trachea Midline, Full Range of Motion. No: Lymphadenopathy Lungs: Decreased Breath Sounds, Crackles. No: Rales, Rhonchi, Rub, Stridor, Wheezing Cardiovascular: Irregular Rhythm, Tachycardia. No: Systolic Murmur, Diastolic Murmur, Rubs, Gallop/S3, Gallop/S4 GI/Abdominal Exam: Normal Bowel Sounds, Soft, Non-Tender, No Organomegaly. No: Distended, Guarding, Rigid, Rebound, Tender Back Exam: Normal Inspection. No: CVA Tenderness (L), CVA Tenderness (R) Extremities: Normal Inspection, Normal Range of Motion, Slow Capillary Refill Skin: Warm, Intact Psychiatric: Alert, Normal Affect, Normal Mood Sepsis Event Note - Evaluation Sepsis Screening Result: No Definite Risk - Focused Exam Vital Signs: Vital Signs Temp Temp Pulse Resp BP BP Pulse Ox 05/27/19 15:18 97.7 F 95 16 116/77 94 L 05/27/19 12:00 98.6 F 16 127/62 95 Date Exam was Performed: 06/24/19 Time Exam was Performed: 16:09 - Problem List Review Problem List Initiated/Reviewed/Updated: Yes - My Orders Last 24 Hours: My Active Orders 05/27/19 05:20 CULTURE BLOOD [BC] Routine 05/27/19 05:30 CULTURE BLOOD [BC] Routine 05/27/19 09:00 Enzalutamide [Xtandi] 160 mg PO DAILY Levofloxacin/Dextrose 5%-Water [Levaquin in D5W 750 MG/150 ML] 750 mg Premix Bag 1 bag IV Q24H predniSONE 5 mg PO BID 05/27/19 11:26 Admission Status [Patient Status] [ADT] Routine 05/27/19 15:00 Diltiazem IR [Cardizem] 30 mg PO Q6H 05/28/19 08:00 PROCALCITONIN [REF] DAILY - Plan Plan:: Multifactorial sepsis Bacteremia 2/2 gram + cocci Hypoxemia 2/2 Community acquired bacterial pneumonia 2/2 mycoplasma UTI (urinary tract infection) Leukocytosis Fever + tachycardia + tachypnea + pulmonary/urinary source--> normal lactic acid Volume status improved 3/4 blood cultures + gram positive cocci Tmax 101.9 (admission fever) PLAN - continue azithromycin - Monitor volume status - Repeat blood cultures fu - Echocardiogram - Monitor temperature and reculture if febrile Atrial fibrillation with RVR HR trend 82-99 PLAN - Diltiazem drip - Calculate diltiazem PO dose Acute kidney injury Chronic kidney disease (CKD) Hypophosphatemia Hypomagnesemia GFR on admission 32--> 44 today PLAN - Replace electrolytes - Monitor urine output - Renally dosed medications - Avoid nephrotoxic medications Hypertension BP on admission 147/86 PLAN - Diltiazem drip - Continue home medications once available Prostate cancer Actively pursuing treatment On Xtandi at home PLAN - Continue home medications PROPHYLAXIS DVT- contraindicated due to thrombocytopenia GI- not indicated CODE STATUS: DNR/DNI DISPOSITION: Patient will remain the ICU for diltiazem drip, will continue to monitor volume status and VS. From home, alone, son lives close by and they work together daily. Independent on all ADLs and IADLs
[2019-05-28] MEDS: Diltiazem IR 30 MG Tab PO SCH ×5 (02:09→20:14)
[2019-05-28] MEDS: predniSONE 5 MG Tab PO SCH ×2 (08:20→20:14)
[2019-05-28] MEDS: Levofloxacin/Dextrose 5%-Water 750 MG in Premix Bag 1 BAG IV SCH (08:20)
[2019-05-28] MEDS: ENZALUTAMIDE 40 MG PO SCH (08:26)
[2019-05-29] MEDS: Diltiazem IR 30 MG Tab PO SCH ×4 (02:35→20:42)
[2019-05-29] MEDS: ENZALUTAMIDE 40 MG PO SCH (09:00)
[2019-05-29] MEDS: predniSONE 5 MG Tab PO SCH ×2 (09:00→20:43)
[2019-05-29] MEDS: Levofloxacin/Dextrose 5%-Water 750 MG in Premix Bag 1 BAG IV SCH (09:00)
[2019-05-29] MEDS ORDERED: Acetaminophen 325 MG/10.15 ML ML PO PRN (10:50)
[2019-05-29] MEDS ORDERED: Acetaminophen 325 MG Tab PO PRN (15:06)
[2019-05-30] MEDS: Diltiazem IR 30 MG Tab PO SCH ×4 (03:45→21:01)
[2019-05-30] MEDS: Levofloxacin/Dextrose 5%-Water 750 MG in Premix Bag 1 BAG IV SCH (09:41)
[2019-05-30] MEDS: predniSONE 5 MG Tab PO SCH ×2 (09:41→21:01)
[2019-05-30] MEDS: ENZALUTAMIDE 40 MG PO SCH (09:48)
[2019-05-30] MEDS: cefTRIAXone 2 GM in Sodium Chloride 0.9% 100 ML IV SCH (13:04)
--- NOTE | 2019-05-30 16:06 | PCM.PN ---
- General Info Date of Service: 05/28/19 Subjective Update: slept ok - Patient Data Vitals - Most Recent: Last Vital Signs Temp 97.2 F 05/30/19 15:21 Pulse 49 L 05/30/19 15:21 Resp 16 05/30/19 15:21 BP 108/74 05/30/19 15:21 Pulse Ox 98 05/30/19 15:21 Weight - Most Recent: 108.363 kg I&O - Last 24 Hours: Intake & Output 05/30/19 05/30/19 05/30/19 06:59 14:59 22:59 Intake Total 400 420 Output Total 1200 Balance -800 420 Kapil Results Last 24 Hours: Microbiology 05/29/19 05:30 Aerobic Blood Culture - Preliminary Blood - Venous NO GROWTH AFTER 1 DAY Anaerobic Blood Culture - Preliminary Gram Positive Cocci In Chains 05/29/19 06:17 Aerobic Blood Culture - Preliminary Blood - Venous - Lab Draw NO GROWTH AFTER 1 DAY Anaerobic Blood Culture - Preliminary NO GROWTH AFTER 1 DAY 05/27/19 05:30 Aerobic Blood Culture - Preliminary Blood - Venous NO GROWTH AFTER 3 DAYS Anaerobic Blood Culture - Preliminary NO GROWTH AFTER 3 DAYS 05/27/19 05:20 Aerobic Blood Culture - Preliminary Blood - Venous - Lab Draw NO GROWTH AFTER 3 DAYS Anaerobic Blood Culture - Preliminary Beta Streptococcus Group B Med Orders - Current: Current Medications Acetaminophen (Tylenol) 325 mg PO Q6HR PRN PRN Reason: Pain (mild 1-3) Albuterol/Ipratropium (Duoneb 3.0-0.5 Mg/3 Ml) 3 ml NEB Q4H PRN PRN Reason: Wheezing Diltiazem HCl (Cardizem) 30 mg PO Q6H [facility] Last Admin: 05/30/19 15:28 Dose: 30 mg Ceftriaxone Sodium 2 gm/ (Sodium Chloride) 100 mls @ 200 mls/hr IV Q24H [facility] Last Admin: 05/30/19 13:04 Dose: 200 mls/hr Enzalutamide [Xtandi (] 40 Mg CapsPtom) 160 mg PO DAILY [facility] Last Admin: 05/30/19 09:48 Dose: 160 mg Prednisone (Prednisone) 5 mg PO BID [facility] Last Admin: 05/30/19 09:41 Dose: 5 mg Sodium Chloride (Saline Flush) 10 ml FLUSH ASDIRECTED PRN PRN Reason: Keep Vein Open Last Admin: 05/25/19 19:14 Dose: 10 ml Discontinued Medications Acetaminophen (Tylenol) 325 mg PO Q6H PRN PRN Reason: Pain (mild 1-3) Adenosine (Adenocard) 6 mg IVPUSH NOW ONE Stop: 05/25/19 19:07 Last Admin: 05/25/19 19:14 Dose: 6 mg Diltiazem HCl (Cardizem) 20 mg IVPUSH ONETIME ONE Stop: 05/25/19 19:18 Last Admin: 05/25/19 19:23 Dose: 20 mg Diltiazem HCl (Cardizem) 30 mg PO Q6H [facility] Last Admin: 05/28/19 10:04 Dose: Not Given Enoxaparin Sodium (Lovenox) 30 mg SUBCUT DAILY [facility] Last Admin: 05/26/19 08:39 Dose: Not Given Sodium Chloride (Normal Saline) 1,000 mls @ 150 mls/hr IV ASDIRECTED [facility] Last Admin: 05/25/19 19:23 Dose: 150 mls/hr Levofloxacin/Dextrose 750 mg/ (Premix) 150 mls @ 100 mls/hr IV ONETIME ONE Stop: 05/25/19 21:09 Last Admin: 05/25/19 20:13 Dose: 100 mls/hr Diltiazem HCl 125 mg/ Sodium (Chloride) 125 mls @ 5 mls/hr IV TITRATE [facility]; Protocol Last Titration: 05/25/19 22:56 Dose: 2.5 mg/hr, 2.5 mls/hr Lactated Ringer's (Ringers, Lactated) 1,000 mls @ 150 mls/hr IV ASDIRECTED [facility] Last Admin: 05/26/19 23:55 Dose: 150 mls/hr Magnesium Sulfate 4 gm/ Premix 100 mls @ 25 mls/hr IV ONETIME ONE Stop: 05/26/19 13:29 Last Admin: 05/26/19 10:27 Dose: 25 mls/hr Potassium Phosphate 30 mmole/ (Sodium Chloride) 510 mls @ 102 mls/hr IV ONETIME ONE Stop: 05/26/19 15:59 Last Admin: 05/26/19 11:00 Dose: 102 mls/hr Levofloxacin/Dextrose 750 mg/ (Premix) 150 mls @ 100 mls/hr IV Q48H [facility] Levofloxacin/Dextrose 750 mg/ (Premix) 150 mls @ 100 mls/hr IV Q24H [facility] Last Admin: 05/30/19 09:41 Dose: 100 mls/hr Potassium Phosphate 30 mmole/ (Sodium Chloride) 510 mls @ 102 mls/hr IV ONETIME ONE Stop: 05/27/19 17:59 Last Admin: 05/27/19 14:21 Dose: 102 mls/hr Oseltamivir Phosphate (Tamiflu) 75 mg PO BID [facility] Last Admin: 05/26/19 08:39 Dose: 75 mg Oseltamivir Phosphate (Tamiflu) 30 mg PO BID [facility] Last Admin: 05/27/19 08:46 Dose: 30 mg - Exam Physical Findings Comments:: Quality Assessment: Supplemental Oxygen General: Alert, Moderate Distress, Other (confused, mumbling) HEENT: Conjunctiva Clear. No: Mucosa Moist & [place] Neck: Supple, Trachea Midline, Full Range of Motion. No: Lymphadenopathy Lungs: Decreased Breath Sounds, Crackles. No: Rales, Rhonchi, Rub, Stridor, Wheezing Cardiovascular: Irregular Rhythm, Tachycardia. No: Systolic Murmur, Diastolic Murmur, Rubs, Gallop/S3, Gallop/S4 GI/Abdominal Exam: Normal Bowel Sounds, Soft, Non-Tender, No Organomegaly. No: Distended, Guarding, Rigid, Rebound, Tender Back Exam: Normal Inspection. No: CVA Tenderness (L), CVA Tenderness (R) Extremities: Normal Inspection, Normal Range of Motion, Slow Capillary Refill Skin: Warm, Intact Psychiatric: Alert, Normal Affect, Normal Mood Sepsis Event Note - Evaluation Sepsis Screening Result: No Definite Risk - Focused Exam Vital Signs: Vital Signs Temp Pulse Resp BP Pulse Ox 05/30/19 15:21 97.2 F 49 L 16 108/74 98 05/30/19 11:32 97.5 F 88 19 105/57 L 95 05/30/19 08:01 97.2 F 91 16 130/88 96 05/30/19 04:52 97.5 F 93 13 117/75 94 L Date Exam was Performed: 06/24/19 Time Exam was Performed: 16:11 - Problem List Review Problem List Initiated/Reviewed/Updated: Yes - My Orders Last 24 Hours: My Active Orders 05/29/19 15:06 Acetaminophen [Tylenol] 325 mg PO Q6HR PRN 05/30/19 12:00 cefTRIAXone [Rocephin] 2 gm Sodium Chloride 0.9% [Normal Saline] 100 ml IV Q24H - Plan Plan:: Multifactorial sepsis Bacteremia 2/2 gram + cocci Hypoxemia 2/2 Community acquired bacterial pneumonia 2/2 mycoplasma UTI (urinary tract infection) Leukocytosis Fever + tachycardia + tachypnea + pulmonary/urinary source--> normal lactic acid Volume status improved 3/4 blood cultures + gram positive cocci Tmax 101.9 (admission fever) PLAN - continue azithromycin - Monitor volume status - Repeat blood cultures fu - Echocardiogram - Monitor temperature and reculture if febrile Atrial fibrillation with RVR PLAN - Diltiazem drip off - transition to po Acute kidney injury Chronic kidney disease (CKD) Hypophosphatemia Hypomagnesemia GFR on admission 32 PLAN - Replace electrolytes - Monitor urine output - Renally dosed medications - Avoid nephrotoxic medications Hypertension BP on admission 147/86 PLAN - Diltiazem drip - Continue home medications once available Prostate cancer Actively pursuing treatment On Xtandi at home PLAN - Continue home medications PROPHYLAXIS DVT- contraindicated due to thrombocytopenia GI- not indicated CODE STATUS: DNR/DNI DISPOSITION: Patient will remain admitted ok to downgrade From home, alone, son lives close by and they work together daily. Independent on all ADLs and IADLs
--- NOTE | 2019-05-30 16:06 | PCM.PN ---
- General Info Date of Service: 05/29/19 - Patient Data Vitals - Most Recent: Last Vital Signs Temp 97.2 F 05/30/19 15:21 Pulse 49 L 05/30/19 15:21 Resp 16 05/30/19 15:21 BP 108/74 05/30/19 15:21 Pulse Ox 98 05/30/19 15:21 Weight - Most Recent: 108.363 kg I&O - Last 24 Hours: Intake & Output 05/30/19 05/30/19 05/30/19 06:59 14:59 22:59 Intake Total 400 420 Output Total 1200 Balance -800 420 Kapil Results Last 24 Hours: Microbiology 05/29/19 05:30 Aerobic Blood Culture - Preliminary Blood - Venous NO GROWTH AFTER 1 DAY Anaerobic Blood Culture - Preliminary Gram Positive Cocci In Chains 05/29/19 06:17 Aerobic Blood Culture - Preliminary Blood - Venous - Lab Draw NO GROWTH AFTER 1 DAY Anaerobic Blood Culture - Preliminary NO GROWTH AFTER 1 DAY 05/27/19 05:30 Aerobic Blood Culture - Preliminary Blood - Venous NO GROWTH AFTER 3 DAYS Anaerobic Blood Culture - Preliminary NO GROWTH AFTER 3 DAYS 05/27/19 05:20 Aerobic Blood Culture - Preliminary Blood - Venous - Lab Draw NO GROWTH AFTER 3 DAYS Anaerobic Blood Culture - Preliminary Beta Streptococcus Group B Med Orders - Current: Current Medications Acetaminophen (Tylenol) 325 mg PO Q6HR PRN PRN Reason: Pain (mild 1-3) Albuterol/Ipratropium (Duoneb 3.0-0.5 Mg/3 Ml) 3 ml NEB Q4H PRN PRN Reason: Wheezing Diltiazem HCl (Cardizem) 30 mg PO Q6H [facility] Last Admin: 05/30/19 15:28 Dose: 30 mg Ceftriaxone Sodium 2 gm/ (Sodium Chloride) 100 mls @ 200 mls/hr IV Q24H [facility] Last Admin: 05/30/19 13:04 Dose: 200 mls/hr Enzalutamide [Xtandi (] 40 Mg CapsPtom) 160 mg PO DAILY [facility] Last Admin: 05/30/19 09:48 Dose: 160 mg Prednisone (Prednisone) 5 mg PO BID [facility] Last Admin: 05/30/19 09:41 Dose: 5 mg Sodium Chloride (Saline Flush) 10 ml FLUSH ASDIRECTED PRN PRN Reason: Keep Vein Open Last Admin: 05/25/19 19:14 Dose: 10 ml Discontinued Medications Acetaminophen (Tylenol) 325 mg PO Q6H PRN PRN Reason: Pain (mild 1-3) Adenosine (Adenocard) 6 mg IVPUSH NOW ONE Stop: 05/25/19 19:07 Last Admin: 05/25/19 19:14 Dose: 6 mg Diltiazem HCl (Cardizem) 20 mg IVPUSH ONETIME ONE Stop: 05/25/19 19:18 Last Admin: 05/25/19 19:23 Dose: 20 mg Diltiazem HCl (Cardizem) 30 mg PO Q6H [facility] Last Admin: 05/28/19 10:04 Dose: Not Given Enoxaparin Sodium (Lovenox) 30 mg SUBCUT DAILY [facility] Last Admin: 05/26/19 08:39 Dose: Not Given Sodium Chloride (Normal Saline) 1,000 mls @ 150 mls/hr IV ASDIRECTED [facility] Last Admin: 05/25/19 19:23 Dose: 150 mls/hr Levofloxacin/Dextrose 750 mg/ (Premix) 150 mls @ 100 mls/hr IV ONETIME ONE Stop: 05/25/19 21:09 Last Admin: 05/25/19 20:13 Dose: 100 mls/hr Diltiazem HCl 125 mg/ Sodium (Chloride) 125 mls @ 5 mls/hr IV TITRATE [facility]; Protocol Last Titration: 05/25/19 22:56 Dose: 2.5 mg/hr, 2.5 mls/hr Lactated Ringer's (Ringers, Lactated) 1,000 mls @ 150 mls/hr IV ASDIRECTED [facility] Last Admin: 05/26/19 23:55 Dose: 150 mls/hr Magnesium Sulfate 4 gm/ Premix 100 mls @ 25 mls/hr IV ONETIME ONE Stop: 05/26/19 13:29 Last Admin: 05/26/19 10:27 Dose: 25 mls/hr Potassium Phosphate 30 mmole/ (Sodium Chloride) 510 mls @ 102 mls/hr IV ONETIME ONE Stop: 05/26/19 15:59 Last Admin: 05/26/19 11:00 Dose: 102 mls/hr Levofloxacin/Dextrose 750 mg/ (Premix) 150 mls @ 100 mls/hr IV Q48H [facility] Levofloxacin/Dextrose 750 mg/ (Premix) 150 mls @ 100 mls/hr IV Q24H [facility] Last Admin: 05/30/19 09:41 Dose: 100 mls/hr Potassium Phosphate 30 mmole/ (Sodium Chloride) 510 mls @ 102 mls/hr IV ONETIME ONE Stop: 05/27/19 17:59 Last Admin: 05/27/19 14:21 Dose: 102 mls/hr Oseltamivir Phosphate (Tamiflu) 75 mg PO BID [facility] Last Admin: 05/26/19 08:39 Dose: 75 mg Oseltamivir Phosphate (Tamiflu) 30 mg PO BID [facility] Last Admin: 05/27/19 08:46 Dose: 30 mg - Exam Physical Findings Comments:: Quality Assessment: Supplemental Oxygen General: Alert, Moderate Distress, Other (confused, mumbling) HEENT: Conjunctiva Clear. No: Mucosa Moist & [place] Neck: Supple, Trachea Midline, Full Range of Motion. No: Lymphadenopathy Lungs: Decreased Breath Sounds, Crackles. No: Rales, Rhonchi, Rub, Stridor, Wheezing Cardiovascular: Irregular Rhythm, Tachycardia. No: Systolic Murmur, Diastolic Murmur, Rubs, Gallop/S3, Gallop/S4 GI/Abdominal Exam: Normal Bowel Sounds, Soft, Non-Tender, No Organomegaly. No: Distended, Guarding, Rigid, Rebound, Tender Back Exam: Normal Inspection. No: CVA Tenderness (L), CVA Tenderness (R) Extremities: Normal Inspection, Normal Range of Motion, Slow Capillary Refill Skin: Warm, Intact Psychiatric: Alert, Normal Affect, Normal Mood Sepsis Event Note - Evaluation Sepsis Screening Result: No Definite Risk - Focused Exam Vital Signs: Vital Signs Temp Pulse Resp BP Pulse Ox 05/30/19 15:21 97.2 F 49 L 16 108/74 98 05/30/19 11:32 97.5 F 88 19 105/57 L 95 05/30/19 08:01 97.2 F 91 16 130/88 96 05/30/19 04:52 97.5 F 93 13 117/75 94 L Date Exam was Performed: 06/24/19 Time Exam was Performed: 16:13 - Problem List Review Problem List Initiated/Reviewed/Updated: Yes - My Orders Last 24 Hours: My Active Orders 05/30/19 12:00 cefTRIAXone [Rocephin] 2 gm Sodium Chloride 0.9% [Normal Saline] 100 ml IV Q24H - Plan Plan:: Multifactorial sepsis Bacteremia 2/2 gram + cocci Hypoxemia 2/2 Community acquired bacterial pneumonia 2/2 mycoplasma UTI (urinary tract infection) Leukocytosis Fever + tachycardia + tachypnea + pulmonary/urinary source--> normal lactic acid Volume status improved 3/4 blood cultures + gram positive cocci 3/4--> repeat + 2/4 Tmax 101.9 (admission fever) PLAN - continue azithromycin - Monitor volume status - Repeat blood cultures fu - Echocardiogram - Monitor temperature and reculture if febrile Atrial fibrillation with RVR PLAN - Diltiazem po Acute kidney injury Chronic kidney disease (CKD) Hypophosphatemia Hypomagnesemia GFR on admission 32 PLAN - Replace electrolytes - Monitor urine output - Renally dosed medications - Avoid nephrotoxic medications Hypertension BP on admission 147/86 PLAN - Diltiazem drip - Continue home medications once available Prostate cancer Actively pursuing treatment On Xtandi at home PLAN - Continue home medications PROPHYLAXIS DVT- contraindicated due to thrombocytopenia GI- not indicated CODE STATUS: DNR/DNI DISPOSITION: Patient will remain admitted From home, alone, son lives close by and they work together daily. Independent on all ADLs and IADLs Extended LOS > 96 hours due to persistently positive blood cultures
--- NOTE | 2019-05-30 16:06 | PCM.PN ---
- General Info Date of Service: 05/30/19 Subjective Update: slept ok - Patient Data Vitals - Most Recent: Last Vital Signs Temp 97.2 F 05/30/19 15:21 Pulse 49 L 05/30/19 15:21 Resp 16 05/30/19 15:21 BP 108/74 05/30/19 15:21 Pulse Ox 98 05/30/19 15:21 Weight - Most Recent: 108.363 kg I&O - Last 24 Hours: Intake & Output 05/30/19 05/30/19 05/30/19 06:59 14:59 22:59 Intake Total 400 420 Output Total 1200 Balance -800 420 Akp[place] Results Last 24 Hours: Microbiology 05/29/19 05:30 Aerobic Blood Culture - Preliminary Blood - Venous NO GROWTH AFTER 1 DAY Anaerobic Blood Culture - Preliminary Gram Positive Cocci In Chains 05/29/19 06:17 Aerobic Blood Culture - Preliminary Blood - Venous - Lab Draw NO GROWTH AFTER 1 DAY Anaerobic Blood Culture - Preliminary NO GROWTH AFTER 1 DAY 05/27/19 05:30 Aerobic Blood Culture - Preliminary Blood - Venous NO GROWTH AFTER 3 DAYS Anaerobic Blood Culture - Preliminary NO GROWTH AFTER 3 DAYS 05/27/19 05:20 Aerobic Blood Culture - Preliminary Blood - Venous - Lab Draw NO GROWTH AFTER 3 DAYS Anaerobic Blood Culture - Preliminary Beta Streptococcus Group B Med Orders - Current: Current Medications Acetaminophen (Tylenol) 325 mg PO Q6HR PRN PRN Reason: Pain (mild 1-3) Albuterol/Ipratropium (Duoneb 3.0-0.5 Mg/3 Ml) 3 ml NEB Q4H PRN PRN Reason: Wheezing Diltiazem HCl (Cardizem) 30 mg PO Q6H [facility] Last Admin: 05/30/19 15:28 Dose: 30 mg Ceftriaxone Sodium 2 gm/ (Sodium Chloride) 100 mls @ 200 mls/hr IV Q24H [facility] Last Admin: 05/30/19 13:04 Dose: 200 mls/hr Enzalutamide [Xtandi (] 40 Mg CapsPtom) 160 mg PO DAILY [facility] Last Admin: 05/30/19 09:48 Dose: 160 mg Prednisone (Prednisone) 5 mg PO BID [facility] Last Admin: 05/30/19 09:41 Dose: 5 mg Sodium Chloride (Saline Flush) 10 ml FLUSH ASDIRECTED PRN PRN Reason: Keep Vein Open Last Admin: 05/25/19 19:14 Dose: 10 ml Discontinued Medications Acetaminophen (Tylenol) 325 mg PO Q6H PRN PRN Reason: Pain (mild 1-3) Adenosine (Adenocard) 6 mg IVPUSH NOW ONE Stop: 05/25/19 19:07 Last Admin: 05/25/19 19:14 Dose: 6 mg Diltiazem HCl (Cardizem) 20 mg IVPUSH ONETIME ONE Stop: 05/25/19 19:18 Last Admin: 05/25/19 19:23 Dose: 20 mg Diltiazem HCl (Cardizem) 30 mg PO Q6H [facility] Last Admin: 05/28/19 10:04 Dose: Not Given Enoxaparin Sodium (Lovenox) 30 mg SUBCUT DAILY [facility] Last Admin: 05/26/19 08:39 Dose: Not Given Sodium Chloride (Normal Saline) 1,000 mls @ 150 mls/hr IV ASDIRECTED [facility] Last Admin: 05/25/19 19:23 Dose: 150 mls/hr Levofloxacin/Dextrose 750 mg/ (Premix) 150 mls @ 100 mls/hr IV ONETIME ONE Stop: 05/25/19 21:09 Last Admin: 05/25/19 20:13 Dose: 100 mls/hr Diltiazem HCl 125 mg/ Sodium (Chloride) 125 mls @ 5 mls/hr IV TITRATE [facility]; Protocol Last Titration: 05/25/19 22:56 Dose: 2.5 mg/hr, 2.5 mls/hr Lactated Ringer's (Ringers, Lactated) 1,000 mls @ 150 mls/hr IV ASDIRECTED [facility] Last Admin: 05/26/19 23:55 Dose: 150 mls/hr Magnesium Sulfate 4 gm/ Premix 100 mls @ 25 mls/hr IV ONETIME ONE Stop: 05/26/19 13:29 Last Admin: 05/26/19 10:27 Dose: 25 mls/hr Potassium Phosphate 30 mmole/ (Sodium Chloride) 510 mls @ 102 mls/hr IV ONETIME ONE Stop: 05/26/19 15:59 Last Admin: 05/26/19 11:00 Dose: 102 mls/hr Levofloxacin/Dextrose 750 mg/ (Premix) 150 mls @ 100 mls/hr IV Q48H [facility] Levofloxacin/Dextrose 750 mg/ (Premix) 150 mls @ 100 mls/hr IV Q24H [facility] Last Admin: 05/30/19 09:41 Dose: 100 mls/hr Potassium Phosphate 30 mmole/ (Sodium Chloride) 510 mls @ 102 mls/hr IV ONETIME ONE Stop: 05/27/19 17:59 Last Admin: 05/27/19 14:21 Dose: 102 mls/hr Oseltamivir Phosphate (Tamiflu) 75 mg PO BID [facility] Last Admin: 05/26/19 08:39 Dose: 75 mg Oseltamivir Phosphate (Tamiflu) 30 mg PO BID [facility] Last Admin: 05/27/19 08:46 Dose: 30 mg - Exam Physical Findings Comments:: Quality Assessment: Supplemental Oxygen General: Alert, Moderate Distress, Other (confused, mumbling) HEENT: Conjunctiva Clear. No: Mucosa Moist & [place] Neck: Supple, Trachea Midline, Full Range of Motion. No: Lymphadenopathy Lungs: Decreased Breath Sounds, Crackles. No: Rales, Rhonchi, Rub, Stridor, Wheezing Cardiovascular: Irregular Rhythm, Tachycardia. No: Systolic Murmur, Diastolic Murmur, Rubs, Gallop/S3, Gallop/S4 GI/Abdominal Exam: Normal Bowel Sounds, Soft, Non-Tender, No Organomegaly. No: Distended, Guarding, Rigid, Rebound, Tender Back Exam: Normal Inspection. No: CVA Tenderness (L), CVA Tenderness (R) Extremities: Normal Inspection, Normal Range of Motion, Slow Capillary Refill Skin: Warm, Intact Psychiatric: Alert, Normal Affect, Normal Mood Sepsis Event Note - Evaluation Sepsis Screening Result: No Definite Risk - Focused Exam Vital Signs: Vital Signs Temp Pulse Resp BP Pulse Ox 05/30/19 15:21 97.2 F 49 L 16 108/74 98 05/30/19 11:32 97.5 F 88 19 105/57 L 95 05/30/19 08:01 97.2 F 91 16 130/88 96 05/30/19 04:52 97.5 F 93 13 117/75 94 L Date Exam was Performed: 06/24/19 Time Exam was Performed: 16:14 - Problem List Review Problem List Initiated/Reviewed/Updated: Yes - My Orders Last 24 Hours: My Active Orders 05/30/19 12:00 cefTRIAXone [Rocephin] 2 gm Sodium Chloride 0.9% [Normal Saline] 100 ml IV Q24H - Plan Plan:: Multifactorial sepsis Bacteremia 2/2 gram + cocci Hypoxemia 2/2 Community acquired bacterial pneumonia 2/2 mycoplasma UTI (urinary tract infection) Leukocytosis Fever + tachycardia + tachypnea + pulmonary/urinary source--> normal lactic acid Volume status improved 3/4 blood cultures + gram positive cocci 3/4--> repeat + 2/4 Tmax 101.9 (admission fever) PLAN - continue azithromycin - Monitor volume status - Repeat blood cultures fu - Echocardiogram - Monitor temperature and reculture if febrile Atrial fibrillation with RVR PLAN - Diltiazem po Acute kidney injury Chronic kidney disease (CKD) Hypophosphatemia Hypomagnesemia GFR on admission 32 PLAN - Replace electrolytes - Monitor urine output - Renally dosed medications - Avoid nephrotoxic medications Hypertension BP on admission 147/86 PLAN - Diltiazem drip - Continue home medications once available Prostate cancer Actively pursuing treatment On Xtandi at home PLAN - Continue home medications PROPHYLAXIS DVT- contraindicated due to thrombocytopenia GI- not indicated CODE STATUS: DNR/DNI DISPOSITION: Patient will remain admitted From home, alone, son lives close by and they work together daily. Independent on all ADLs and IADLs Extended LOS > 96 hours due to persistently positive blood cultures
[2019-05-31] MEDS: Diltiazem IR 30 MG Tab PO SCH ×2 (02:53→09:07)
[2019-05-31 08:31] VITALS: BP 118/88; PULSE 98
[2019-05-31] MEDS: predniSONE 5 MG Tab PO SCH (09:07)
[2019-05-31] MEDS: ENZALUTAMIDE 40 MG PO SCH (09:07)
--- NOTE | 2019-05-31 09:38 | PCM.DCSUM1 ---
Discharge Summary - Hospital Course HPI Initial Comments: History obtained from son due to AMS of patient. This is an 83-year old male with past medical history of hypertension and prostate cancer who comes to the ED brought in by son for confusion, sweating and pallor. As per son patient was in usual health up to last Thursday when he was complaining of general malaise, this lasted for approximately 48 hours, he was OK on Thursday. Yesterday patient again was complaining of malaise, as per son he didn't come back to work after his dentist appointment in the morning so he went to check on patient and found him sitting on his chair with a blanket on complaining of "not feeling good". Son went to check on him again today and found him in his chair again but was pale, mumbling and clammy for which he decided to bring him to the ED for further evaluation. Son works with him every day and has not noted any coughing, patient has not complained about anything either. - Discharge Data Discharge Date: 05/31/19 Discharge Disposition: Home, Self-Care 01 Condition: Good - Referral to Home Health Primary Care Physician: Nikko Hamilton MD - Discharge Diagnosis/Problem(s) (1) Acute kidney injury SNOMED Code(s): 75404638, 11079946 ICD Code: N17.9 - ACUTE KIDNEY FAILURE, UNSPECIFIED Status: Acute (2) Atrial fibrillation with RVR SNOMED Code(s): 296953933103887 ICD Code: I48.91 - UNSPECIFIED ATRIAL FIBRILLATION Status: Acute (3) Bacteremia due to Gram-positive bacteria SNOMED Code(s): 170736523374 ICD Code: R78.81 - BACTEREMIA Status: Acute (4) Chronic kidney disease (CKD) SNOMED Code(s): 571147172 ICD Code: N18.9 - CHRONIC KIDNEY DISEASE, UNSPECIFIED Status: Acute (5) Community acquired bacterial pneumonia SNOMED Code(s): 726422918, 860157532 ICD Code: J15.9 - UNSPECIFIED BACTERIAL PNEUMONIA Status: Acute (6) Hypertension SNOMED Code(s): 12161408 ICD Code: I10 - ESSENTIAL (PRIMARY) HYPERTENSION Status: Acute (7) Leukocytosis SNOMED Code(s): 551787839, 902953820 ICD Code: D72.829 - ELEVATED WHITE BLOOD CELL COUNT, UNSPECIFIED Status: Acute (8) Macrocytic anemia SNOMED Code(s): 57757297 ICD Code: D53.9 - NUTRITIONAL ANEMIA, UNSPECIFIED Status: Acute (9) Prostate cancer SNOMED Code(s): 655182524 ICD Code: C61 - MALIGNANT NEOPLASM OF PROSTATE Status: Acute (10) Sepsis SNOMED Code(s): 78343945 ICD Code: A41.9 - SEPSIS, UNSPECIFIED ORGANISM Status: Acute (11) Thrombocytopenia SNOMED Code(s): 604761647 ICD Code: D69.6 - THROMBOCYTOPENIA, UNSPECIFIED Status: Acute (12) UTI (urinary tract infection) SNOMED Code(s): 19121772 ICD Code: N39.0 - URINARY TRACT INFECTION, SITE NOT SPECIFIED Status: Acute Qualifiers: Urinary tract infection type: acute cystitis Hematuria presence: without hematuria Qualified Code(s): N30.00 - Acute cystitis without hematuria - Patient Summary/Data Consults: Consultations 05/26/19 10:34 OT Evaluation and Treatment [CONS] Routine PT Evaluation and Treatment [CONS] Routine Hospital Course: multifactorial sepsis on admission due to uti and bacteremie afib rvr in ED admitted to icu on diltiazem drip transitioned to po diltiazem Bacteremia persistently positive x 3 sets of cultures patient refused to wait or negative cultures or follow up echocardiogram - Discharge Plan Prescriptions/Med Rec: cephALEXin [Cephalexin] 1,000 mg PO TID #42 tablet Diltiazem IR [Cardizem] 30 mg PO Q6H #120 tablet Home Medications: Home Meds Finasteride [Proscar] 5 mg PO DAILY 10/25/13 [History] Furosemide [Lasix] 10 mg PO DAILY 10/25/13 [History] Rosuvastatin [Crestor] 5 mg PO DAILY 10/25/13 [History] Denosumab [Prolia] 60 mg IM Q1M 08/09/15 [History] Enzalutamide [Xtandi] 160 mg PO DAILY 05/26/19 [History] predniSONE 5 mg PO BID 05/26/19 [History] Diltiazem IR [Cardizem] 30 mg PO Q6H #120 tablet 05/31/19 [Rx] cephALEXin [Cephalexin] 1,000 mg PO TID #42 tablet 05/31/19 [Rx] Patient Handouts: How to Use an Incentive Spirometer, Sepsis, Diagnosis, Adult , Atrial Fibrillation, [id number], Community-Acquired Pneumonia, Adult, Easy- to-Read Forms: ED Department Discharge Referrals: Nikko Hamilton MD [Primary Care Provider] - 06/02/19 10:15 am (Please follow up with Dr. Hamilton on 1015am. You will need to have labs drawn on 06/01/2019. ) - Discharge Summary/Plan Comment DC Time >30 min.: Yes - Patient Data Vitals - Most Recent: Last Vital Signs Temp 97.9 F 05/31/19 07:49 Pulse 98 05/31/19 07:49 Resp 20 05/31/19 07:49 BP 118/88 05/31/19 07:49 Pulse Ox 93 L 05/31/19 07:49 Weight - Most Recent: 107.91 kg I&O - Last 24 hours: Intake & Output 05/30/19 05/31/19 05/31/19 22:59 06:59 14:59 Intake Total 750 200 Output Total 850 700 Balance -100 -500 MAGGIE Results - Last 24 hrs: Microbiology 05/29/19 06:17 Aerobic Blood Culture - Preliminary Blood - Venous - Lab Draw NO GROWTH AFTER 2 DAYS Anaerobic Blood Culture - Preliminary NO GROWTH AFTER 2 DAYS 05/27/19 05:30 Aerobic Blood Culture - Preliminary Blood - Venous NO GROWTH AFTER 4 DAYS Anaerobic Blood Culture - Preliminary NO GROWTH AFTER 4 DAYS 05/27/19 05:20 Aerobic Blood Culture - Preliminary Blood - Venous - Lab Draw NO GROWTH AFTER 4 DAYS Anaerobic Blood Culture - Preliminary Beta Streptococcus Group B 05/29/19 05:30 Aerobic Blood Culture - Preliminary Blood - Venous NO GROWTH AFTER 2 DAYS Anaerobic Blood Culture - Preliminary Gram Positive Cocci In Chains Med Orders - Current: Current Medications Acetaminophen (Tylenol) 325 mg PO Q6HR PRN PRN Reason: Pain (mild 1-3) Albuterol/Ipratropium (Duoneb 3.0-0.5 Mg/3 Ml) 3 ml NEB Q4H PRN PRN Reason: Wheezing Diltiazem HCl (Cardizem) 30 mg PO Q6H [facility] Last Admin: 05/31/19 09:07 Dose: 30 mg Ceftriaxone Sodium 2 gm/ (Sodium Chloride) 100 mls @ 200 mls/hr IV Q24H [facility] Last Admin: 05/30/19 13:04 Dose: 200 mls/hr Enzalutamide [Xtandi (] 40 Mg CapsPtom) 160 mg PO DAILY [facility] Last Admin: 05/31/19 09:07 Dose: 160 mg Prednisone (Prednisone) 5 mg PO BID [facility] Last Admin: 05/31/19 09:07 Dose: 5 mg Sodium Chloride (Saline Flush) 10 ml FLUSH ASDIRECTED PRN PRN Reason: Keep Vein Open Last Admin: 05/25/19 19:14 Dose: 10 ml Discontinued Medications Acetaminophen (Tylenol) 325 mg PO Q6H PRN PRN Reason: Pain (mild 1-3) Adenosine (Adenocard) 6 mg IVPUSH NOW ONE Stop: 05/25/19 19:07 Last Admin: 05/25/19 19:14 Dose: 6 mg Diltiazem HCl (Cardizem) 20 mg IVPUSH ONETIME ONE Stop: 05/25/19 19:18 Last Admin: 05/25/19 19:23 Dose: 20 mg Diltiazem HCl (Cardizem) 30 mg PO Q6H [facility] Last Admin: 05/28/19 10:04 Dose: Not Given Enoxaparin Sodium (Lovenox) 30 mg SUBCUT DAILY [facility] Last Admin: 05/26/19 08:39 Dose: Not Given Sodium Chloride (Normal Saline) 1,000 mls @ 150 mls/hr IV ASDIRECTED [facility] Last Admin: 05/25/19 19:23 Dose: 150 mls/hr Levofloxacin/Dextrose 750 mg/ (Premix) 150 mls @ 100 mls/hr IV ONETIME ONE Stop: 05/25/19 21:09 Last Admin: 05/25/19 20:13 Dose: 100 mls/hr Diltiazem HCl 125 mg/ Sodium (Chloride) 125 mls @ 5 mls/hr IV TITRATE [facility]; Protocol Last Titration: 05/25/19 22:56 Dose: 2.5 mg/hr, 2.5 mls/hr Lactated Ringer's (Ringers, Lactated) 1,000 mls @ 150 mls/hr IV ASDIRECTED [facility] Last Admin: 05/26/19 23:55 Dose: 150 mls/hr Magnesium Sulfate 4 gm/ Premix 100 mls @ 25 mls/hr IV ONETIME ONE Stop: 05/26/19 13:29 Last Admin: 05/26/19 10:27 Dose: 25 mls/hr Potassium Phosphate 30 mmole/ (Sodium Chloride) 510 mls @ 102 mls/hr IV ONETIME ONE Stop: 05/26/19 15:59 Last Admin: 05/26/19 11:00 Dose: 102 mls/hr Levofloxacin/Dextrose 750 mg/ (Premix) 150 mls @ 100 mls/hr IV Q48H [facility] Levofloxacin/Dextrose 750 mg/ (Premix) 150 mls @ 100 mls/hr IV Q24H [facility] Last Admin: 05/30/19 09:41 Dose: 100 mls/hr Potassium Phosphate 30 mmole/ (Sodium Chloride) 510 mls @ 102 mls/hr IV ONETIME ONE Stop: 05/27/19 17:59 Last Admin: 05/27/19 14:21 Dose: 102 mls/hr Oseltamivir Phosphate (Tamiflu) 75 mg PO BID [facility] Last Admin: 05/26/19 08:39 Dose: 75 mg Oseltamivir Phosphate (Tamiflu) 30 mg PO BID [facility] Last Admin: 05/27/19 08:46 Dose: 30 mg - Exam Physical Findings Comments:: Quality Assessment: Supplemental Oxygen General: Alert, Moderate Distress, Other (confused, mumbling) HEENT: Conjunctiva Clear. No: Mucosa Moist & [place] Neck: Supple, Trachea Midline, Full Range of Motion. No: Lymphadenopathy Lungs: Decreased Breath Sounds, Crackles. No: Rales, Rhonchi, Rub, Stridor, Wheezing Cardiovascular: Irregular Rhythm, Tachycardia. No: Systolic Murmur, Diastolic Murmur, Rubs, Gallop/S3, Gallop/S4 GI/Abdominal Exam: Normal Bowel Sounds, Soft, Non-Tender, No Organomegaly. No: Distended, Guarding, Rigid, Rebound, Tender Back Exam: Normal Inspection. No: CVA Tenderness (L), CVA Tenderness (R) Extremities: Normal Inspection, Normal Range of Motion, Slow Capillary Refill Skin: Warm, Intact Psychiatric: Alert, Normal Affect, Normal Mood
[2019-05-31] MEDS: cefTRIAXone 2 GM in Sodium Chloride 0.9% 100 ML IV SCH (12:01)
== END 2019-05-31 12:07 | disposition home or self-care (01) | DRG 871 ==
LOC: JD.ED 18:42 → JD.ICU 20:34 → JD.MS 05-27 14:31
PROVIDERS: ADMIT Internal Medicine; ATTEND Internal Medicine
DX: A41.89 Other specified sepsis (principal); R09.02 Hypoxemia; J15.7 Pneumonia due to Mycoplasma pneumoniae; N17.9 Acute kidney failure, unspecified; N30.00 Acute cystitis without hematuria; I10 Essential (primary) hypertension; D53.9 Nutritional anemia, unspecified; D69.6 Thrombocytopenia, unspecified; Z66 Do not resuscitate; N18.9 Chronic kidney disease, unspecified; E83.39 Other disorders of phosphorus metabolism; I48.91 Unspecified atrial fibrillation; E83.42 Hypomagnesemia; I12.9 Hypertensive chronic kidney disease with stage 1 through stage 4 chronic kidney disease, or unspecified chronic kidney disease; C61 Malignant neoplasm of prostate; H54.7 Unspecified visual loss; E66.9 Obesity, unspecified; Z96.659 Presence of unspecified artificial knee joint; F03.90 Unspecified dementia, unspecified severity, without behavioral disturbance, psychotic disturbance, mood disturbance, and anxiety; Z98.49 Cataract extraction status, unspecified eye; Z79.899 Other long term (current) drug therapy; Z90.49 Acquired absence of other specified parts of digestive tract; Z79.01 Long term (current) use of anticoagulants; Z95.2 Presence of prosthetic heart valve; Z79.52 Long term (current) use of systemic steroids; Z87.442 Personal history of urinary calculi; Z79.82 Long term (current) use of aspirin; Z68.31 Body mass index [BMI] 31.0-31.9, adult; R06.02 Shortness of breath
CPT/HCPCS: 36415; 36600; 71045; 80053; 82803; 83605; 83735; 83880; 84100; 84145; 84484; 85025; 85610; 86140; 86738; 87040 ×2; 87077; 87186; 87486; 87581; 87632; 87798; 87804 ×2; 93005; 94762; 96361; 96365; 96375; 99285; J0153; J1956; J3490; J7030; 71250; 71250-26; 80048; 81001; 82962; 85007; 85027; 87086; 87899; 93010; 93306; 97116-GP; 97161-GP; 97165-GO; 97530-GO; 97530-GP; 97535-GO; 99222; 99231; 99232; 99239; A9270-GY; J0696; J3475; J7040; J7050; J7120

== ENCOUNTER 2019-06-29 06:19 | Inpatient (IN) | payer MEDICARE, OTHER ==
--- NOTE | 2019-06-29 06:26 | EDM.PDOC ---
<Shadi Zhou - Last Filed: 06/29/19 07:12> ED HPI GENERAL MEDICAL PROBLEM - General Chief Complaint: Fever Stated Complaint: [facility] Time Seen by Provider: 06/29/19 06:24 - History of Present Illness INITIAL COMMENTS - FREE TEXT/NARRATIVE: 83-year-old male presents the emergency room brought in by EMS found on the floor. Patient was last known normal last evening when his son checked on him at home. 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 He still drives and lives independent. When his son went to check on him this morning he was found down on the floor. Yesterday when the patient's son checked him in the morning he was not feeling well the patient was able to drive himself to physical therapy but did not go to work because he was not feeling well. I cannot get any more specifics from yesterday other than he did not feel well. 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 According to the patient's son the patient did not take his evening medications last night Abdominal Pain Score (Numeric/FACES): 2 - Related Data Allergies Allergy/AdvReac Type Severity Reaction Status Date / Time No Known Allergies Allergy Verified 06/29/19 06:40 Home Meds: Home Meds Finasteride [Proscar] 5 mg PO DAILY 10/25/13 [History] Furosemide [Lasix] 10 mg PO DAILY 10/25/13 [History] Denosumab [Prolia] 60 mg IM Q1M 08/09/15 [History] Enzalutamide [Xtandi] 160 mg PO DAILY 05/26/19 [History] Aspirin [Ecotrin EC] 1 tab PO DAILY 06/29/19 [History] Past Medical History HEENT History: Reports: Impaired Vision Cardiovascular History: Reports: Heart Valve Replacement, Hypertension, Other ( See Below) Other Cardiovascular History: aortic valve replacement about 2 yrs ago Respiratory History: Reports: SOB Genitourinary History: Reports: Renal Calculus Neurological History: Reports: None Psychiatric History: Reports: None Endocrine/Metabolic History: Reports: Obesity/BMI 30+ Hematologic History: Reports: None Immunologic History: Reports: None Oncologic (Cancer) History: Reports: Prostate Dermatologic History: Reports: None - Infectious Disease History Infectious Disease History: Reports: None - Past Surgical History HEENT Surgical History: Reports: Cataract Surgery Cardiovascular Surgical History: Reports: Valve Replacement GI Surgical History: Reports: Appendectomy, Cholecystectomy, Colonoscopy Musculoskeletal Surgical History: Reports: Knee Replacement Social & Family History - Caffeine Use Caffeine Use: Reports: Coffee ED ROS GENERAL - Review of Systems Review Of Systems: See Below Constitutional: Reports: Fever, Other (Yesterday he did not feel well). Denies : No Symptoms HEENT: Reports: No Symptoms Respiratory: Reports: No Symptoms Cardiovascular: Reports: No Symptoms GI/Abdominal: Reports: No Symptoms : Reports: No Symptoms Musculoskeletal: Reports: No Symptoms Neurological: Reports: No Symptoms ED EXAM, GENERAL - Physical Exam Exam: See Below Course - Vital Signs Last Recorded V/S: Last Vital Signs Temp 104.2 F H 06/29/19 07:14 Pulse 82 06/29/19 08:04 Resp 24 H 06/29/19 08:04 BP 95/68 06/29/19 08:04 Pulse Ox 98 06/29/19 08:04 - Orders/Labs/Meds Orders: Active Orders 24 hr Category Date Time Status EKG Documentation Completion [RC] STAT Care 06/29/19 06:43 Active CORONAVIRUS COVID-19 PCR PHL [MREF] Stat Lab 06/29/19 08:53 Ordered CULTURE BLOOD [BC] Stat Lab 06/29/19 06:45 Ordered CULTURE BLOOD [BC] Stat Lab 06/29/19 06:48 Received LACTIC ACID [CHEM] Timed Lab 06/29/19 11:30 Ordered PROCALCITONIN [REF] Stat Lab 06/29/19 06:58 Received REFLEX LACTIC ACID YES OR NO [CHEM] Routine Lab 06/29/19 07:36 Received Lactated Ringers [Ringers, Lactated] 1,000 ml Med 06/29/19 07:15 Active IV ASDIRECTED Vancomycin [Vancocin] 2 gm Med 06/29/19 08:45 Active Sodium Chloride 0.9% [Normal Saline (AdvBag)] 250 ml IV Q24H cefTRIAXone [Rocephin] 2 gm Med 06/29/19 08:00 Active Sodium Chloride 0.9% [Normal Saline] 100 ml IV Q24H Blood Culture x2 Reflex Set [OM.PC] Stat Oth 06/29/19 06:43 Ordered Isolation [COMM] Routine Oth 06/29/19 06:45 Ordered Medication Orders Lactated Ringer's (Ringers, Lactated) 1,000 mls @ 150 mls/hr IV ASDIRECTED [facility] Last Admin: 06/29/19 07:53 Dose: 150 mls/hr Ceftriaxone Sodium 2 gm/ (Sodium Chloride) 100 mls @ 200 mls/hr IV Q24H [facility] Last Admin: 06/29/19 08:02 Dose: 200 mls/hr Vancomycin HCl 2 gm/ Sodium (Chloride) 250 mls @ 250 mls/hr IV Q24H [facility] Labs: Laboratory Tests 06/29/19 06/29/19 06/29/19 Range/Units 06:58 06:58 06:58 WBC 19.17 H (4.23-9.07) K/mm3 RBC 3.25 L (4.63-6.08) M/mm3 Hgb 9.6 L D (13.7-17.5) gm/dl Hct 30.8 L (40.1-51.0) % MCV 94.8 H (79.0-92.2) fl MCH 29.5 (25.7-32.2) pg MCHC 31.2 L (32.2-35.5) g/dl RDW Std Deviation 47.1 H (35.1-43.9) fL Plt Count 123 L (163-337) K/mm3 MPV 12.4 H (9.4-12.3) fl Neut % (Auto) 94.8 H (34.0-67.9) % Lymph % (Auto) 1.4 L (21.8-53.1) % Wells % (Auto) 3.0 L (5.3-12.2) % Eos % (Auto) 0 L (0.8-7.0) Baso % (Auto) 0.1 (0.1-1.2) % Neut # (Auto) 18.19 H (1.78-5.38) K/mm3 Lymph # (Auto) 0.26 L (1.32-3.57) K/mm3 Wells # (Auto) 0.58 (0.30-0.82) K/mm3 Eos # (Auto) 0.00 L (0.04-0.54) K/mm3 Baso # (Auto) 0.01 (0.01-0.08) K/mm3 Manual Slide Review Normal smear PT 17.7 H (9.7-12.0) SECONDS INR 1.67 Sodium 138 (136-145) mEq/L Potassium 3.5 (3.5-5.1) mEq/L Chloride 103 (98-107) mEq/L Carbon Dioxide 21 (21-32) mEq/L Anion Gap 17.5 H (5-15) BUN 29 H (7-18) mg/dL Creatinine 1.6 H (0.7-1.3) mg/dL Est Cr Clr Drug Dosing TNP Estimated GFR (MDRD) 41 (>60) mL/min BUN/Creatinine Ratio 18.1 H (14-18) Glucose 178 H (83-115) mg/dL Lactic Acid (0.4-2.0) mmol/L Calcium 8.3 L (8.5-10.1) mg/dL Total Bilirubin 1.0 (0.2-1.0) mg/dL AST 42 H (15-37) U/L ALT 21 (16-63) U/L Alkaline Phosphatase 79 (46-116) U/L Troponin I 0.496 H* (0.00-0.056) ng/mL Total Protein 6.0 L (6.4-8.2) g/dl Albumin 2.4 L (3.4-5.0) g/dl Globulin 3.6 gm/dL Albumin/Globulin Ratio 0.7 L (1-2) Urine Color (Yellow) Urine Appearance (Clear) Urine pH (5.0-8.0) Ur Specific Bixby (1.005-1.030) Urine Protein (Negative) Urine Glucose (UA) (Negative) Urine Ketones (Negative) Urine Occult Blood (Negative) Urine Nitrite (Negative) Urine Bilirubin (Negative) Urine Urobilinogen (0.2-1.0) Ur Leukocyte Esterase (Negative) Urine RBC (0-5) /hpf Urine WBC (0-5) /hpf Ur Squamous Epith Cells (0-5) /hpf Urine Bacteria (FEW) /hpf Urine Mucus (FEW) /hpf Urine Yeast (NOT SEEN) 06/29/19 06/29/19 Range/Units 06:58 07:31 WBC (4.23-9.07) K/mm3 RBC (4.63-6.08) M/mm3 Hgb (13.7-17.5) gm/dl Hct (40.1-51.0) % MCV (79.0-92.2) fl MCH (25.7-32.2) pg MCHC (32.2-35.5) g/dl RDW Std Deviation (35.1-43.9) fL Plt Count (163-337) K/mm3 MPV (9.4-12.3) fl Neut % (Auto) (34.0-67.9) % Lymph % (Auto) (21.8-53.1) % Wells % (Auto) (5.3-12.2) % Eos % (Auto) (0.8-7.0) Baso % (Auto) (0.1-1.2) % Neut # (Auto) (1.78-5.38) K/mm3 Lymph # (Auto) (1.32-3.57) K/mm3 Wells # (Auto) (0.30-0.82) K/mm3 Eos # (Auto) (0.04-0.54) K/mm3 Baso # (Auto) (0.01-0.08) K/mm3 Manual Slide Review PT (9.7-12.0) SECONDS INR Sodium (136-145) mEq/L Potassium (3.5-5.1) mEq/L Chloride (98-107) mEq/L Carbon Dioxide (21-32) mEq/L Anion Gap (5-15) BUN (7-18) mg/dL Creatinine (0.7-1.3) mg/dL Est Cr Clr Drug Dosing Estimated GFR (MDRD) (>60) mL/min BUN/Creatinine Ratio (14-18) Glucose (83-115) mg/dL Lactic Acid 2.3 H* (0.4-2.0) mmol/L Calcium (8.5-10.1) mg/dL Total Bilirubin (0.2-1.0) mg/dL AST (15-37) U/L ALT (16-63) U/L Alkaline Phosphatase (46-116) U/L Troponin I (0.00-0.056) ng/mL Total Protein (6.4-8.2) g/dl Albumin (3.4-5.0) g/dl Globulin gm/dL Albumin/Globulin Ratio (1-2) Urine Color Dark yellow (Yellow) Urine Appearance Slt cloudy H (Clear) Urine pH 6.0 (5.0-8.0) Ur Specific B[place] 1.025 (1.005-1.030) Urine Protein 2+ H (Negative) Urine Glucose (UA) Negative (Negative) Urine Ketones Negative (Negative) Urine Occult Blood 2+ H (Negative) Urine Nitrite Negative (Negative) Urine Bilirubin 1+ H (Negative) Urine Urobilinogen 0.2 (0.2-1.0) Ur Leukocyte Esterase Negative (Negative) Urine RBC 5-10 H (0-5) /hpf Urine WBC 0-5 (0-5) /hpf Ur Squamous Epith Cells 0-5 (0-5) /hpf Urine Bacteria Rare (FEW) /hpf Urine Mucus Few (FEW) /hpf Urine Yeast Few H (NOT SEEN) Meds: Medications Generic Name Dose Route Start Last Admin Trade Name Freq PRN Reason Stop Dose Admin Lactated Ringer's 1,000 mls @ 150 mls/hr 06/29/19 07:15 06/29/19 07:53 Ringers, Lactated IV 150 mls/hr ASDIRECTED VIANNEY Administration Ceftriaxone Sodium 2 gm/ 100 mls @ 200 mls/hr 06/29/19 08:00 06/29/19 08:02 Sodium Chloride IV 200 mls/hr Q24H VIANNEY Administration Vancomycin HCl 2 gm/ Sodium 250 mls @ 250 mls/hr 06/29/19 08:45 Chloride IV Q24H VIANNEY Discontinued Medications Generic Name Dose Route Start Last Admin Trade Name Hong PRN Reason Stop Dose Admin Acetaminophen 650 mg 06/29/19 07:07 06/29/19 07:14 Tylenol PO 06/29/19 07:08 650 mg NOW ONE Administration Lactated Ringer's 500 mls @ 999 mls/hr 06/29/19 06:44 06/29/19 06:53 Ringers, Lactated IV 06/29/19 07:14 999 mls/hr .BOLUS ONE Administration Piperacillin Sod/Tazobactam 100 mls @ 200 mls/hr 06/29/19 08:38 Sod 4.5 gm/ Sodium Chloride IV 06/29/19 09:07 ONETIME ONE - Re-Assessments/Exams Free Text/Narrative Re-Assessment/Exam: 06/29/19 07:08 At this point labs have been ordered we will give some Tylenol for his fever. It is change of shift further care and disposition per Dr. Scales. Departure - Departure Disposition: Admitted As Inpatient 64 Clinical Impression: Elevated troponin Sepsis Qualifiers: Sepsis type: sepsis due to unspecified organism Sepsis acute organ dysfunction status: unspecified Qualified Code(s): A41.9 - Sepsis, unspecified organism Anemia Qualifiers: Anemia type: other cause Other causes of anemia: other cause, not classified Qualified Code(s): D64.89 - Other specified anemias - Discharge Information Sepsis Event Note - Focused Exam Vital Signs: Vital Signs Temp Temp Pulse Resp BP Pulse Ox 06/29/19 08:04 82 24 H 95/68 98 06/29/19 07:14 104.2 F H 06/29/19 06:29 104.6 F H 104 H 22 H 106/62 86 L Date Exam was Performed: 06/29/19 Time Exam was Performed: 07:12 - My Orders Last 24 Hours: My Active Orders 06/29/19 08:00 cefTRIAXone [Rocephin] 2 gm Sodium Chloride 0.9% [Normal Saline] 100 ml IV Q24H 06/29/19 08:45 Vancomycin [Vancocin] 2 gm Sodium Chloride 0.9% [Normal Saline (AdvBag)] 250 ml IV Q24H 06/29/19 08:53 CORONAVIRUS COVID-19 PCR PHL [MREF] Stat - Assessment/Plan Last 24 Hours: My Active Orders 06/29/19 08:00 cefTRIAXone [Rocephin] 2 gm Sodium Chloride 0.9% [Normal Saline] 100 ml IV Q24H 06/29/19 08:45 Vancomycin [Vancocin] 2 gm Sodium Chloride 0.9% [Normal Saline (AdvBag)] 250 ml IV Q24H 06/29/19 08:53 CORONAVIRUS COVID-19 PCR PHL [MREF] Stat <Sukhdev Scales - Last Filed: 06/29/19 09:20> Course - Re-Assessments/Exams Free Text/Narrative Re-Assessment/Exam: 06/29/19 08:[address] Zhou. It appears the patient is septic. His CXR shows nothing acute. His WBC is elevated at 19.17. His Hgb is low at 9.6. His platelets are low at 123. 06/29/19 08:39 His INR is 1.67. His creatinine is elevated at 1.6. His lactic acid is elevated at 2.3. I repeat lactic acid is ordered for later. His troponin is elevated at 0.496. I have blood cultures ordered an a UA. I ordered rocephin 2 grams IV, vancomycine 2 grams IV and zosyn 4.5grams IV. I talked with Dr Mcdonough and he agreed to the admission. 06/29/19 08:43 Influenza is negative. I have ordered a coronavirus test on him. 06/29/19 09:19 His UA shows no UTI. Departure - Departure Time of Disposition: 09:20 Condition: Fair Sepsis Event Note - Focused Exam Date Exam was Performed: 06/29/19 Time Exam was Performed: 09:19
[2019-06-29] MEDS ORDERED: Lactated Ringers 500 ML IV ONE (06:44)
[2019-06-29] MEDS ORDERED: Acetaminophen 325 MG Tab PO ONE (07:07)
[2019-06-29] MEDS ORDERED: Lactated Ringers 1,000 ML IV SCH (07:15)
--- NOTE | 2019-06-29 07:42 | CR ---
Chest: Portable view of the chest was obtained. Comparison: Prior chest x-ray of 05/25/19. Heart size and mediastinum are normal. Previous sternotomy is seen. Prosthetic heart valve is noted. Lungs are clear with no acute parenchymal change. Degenerative change is noted within the right shoulder. Impression: 1. Findings as noted above. 2. Nothing acute is appreciated. Diagnostic code #2 This report was dictated in MDT
[2019-06-29] MEDS ORDERED: cefTRIAXone 2 GM in Sodium Chloride 0.9% 100 ML IV SCH (08:00)
[2019-06-29 08:04] VITALS: PULSE 82
[2019-06-29] MEDS ORDERED: Piperacillin/Tazobactam 4.5 GM in Sodium Chloride 0.9% 100 ML IV ONE ×2 (08:38→09:30)
[2019-06-29] MEDS ORDERED: Lactated Ringers 1,000 ML IV ONE (10:05)
[2019-06-29] MEDS ORDERED: Vancomycin 2 GM in Sodium Chloride 0.9% 500 ML IV SCH (10:30)
[2019-06-29 12:33] VITALS: BP 103/45
--- NOTE | 2019-06-29 13:11 | PCM.HP.2 ---
H&P History of Present Illness - General Date of Service: 06/29/19 Admit Problem/Dx: Admission Diagnosis/Problem Admission Diagnosis/Problem Sepsis - History of Present Illness Initial Comments - Free Text/Narative: 83-year-old male with bioprosthetic aortic valve and prostate cancer was brought to the emergency department this morning after his son found him on the floor. Apparently patient was not feeling well yesterday and did not go to work. Apparently his temperature was 104.5 at home and here in the emergency department it was 104.6. He has a bioprosthetic porcine aortic heart valve. He was admitted to this facility last month with a UTI. Blood cultures grew out beta Streptococcus group B. Echocardiogram was performed did not show any signs of endocarditis. Patient was treated for total of approximately 14 days with antibiotics and the last 7 days with Keflex. In the emergency department he was found to be hypotensive with blood pressure of 95/41. He was given 30 mL/kg IV fluids, started on vancomycin, Rocephin, and Zosyn. Initial white count was 19.17 with lactic acid of 2.3. Lactic acid on repeat at 3 hours was 1.5. Blood pressure did improve to 124/56 with a map of 77. Abdominal Pain Score (Numeric/FACES): 2 - Related Data Allergies/Adverse Reactions: Allergies Allergy/AdvReac Type Severity Reaction Status Date / Time No Known Allergies Allergy Verified 06/29/19 06:40 Home Medications: Home Meds Finasteride [Proscar] 5 mg PO DAILY 10/25/13 [History] Furosemide [Lasix] 10 mg PO DAILY 10/25/13 [History] Denosumab [Prolia] 60 mg IM Q1M 08/09/15 [History] Enzalutamide [Xtandi] 160 mg PO DAILY 05/26/19 [History] Aspirin [Ecotrin EC] 1 tab PO DAILY 06/29/19 [History] Past Medical History HEENT History: Reports: Impaired Vision Cardiovascular History: Reports: Heart Valve Replacement, Hypertension, Other ( See Below) Other Cardiovascular History: aortic valve replacement about 2 yrs ago Respiratory History: Reports: SOB Genitourinary History: Reports: Renal Calculus Other Genitourinary History: Prostate Cancer Neurological History: Reports: None Psychiatric History: Reports: None Endocrine/Metabolic History: Reports: Obesity/BMI 30+ Hematologic History: Reports: None Immunologic History: Reports: None Oncologic (Cancer) History: Reports: Prostate Dermatologic History: Reports: None - Infectious Disease History Infectious Disease History: Reports: None - Past Surgical History HEENT Surgical History: Reports: Cataract Surgery Cardiovascular Surgical History: Reports: Valve Replacement GI Surgical History: Reports: Appendectomy, Cholecystectomy, Colonoscopy Musculoskeletal Surgical History: Reports: Knee Replacement Social & Family History - Family History Family Medical History: Noncontributory - Tobacco Use Smoking Status *Q: Never Smoker Used Tobacco, but Quit: Yes Month/Year Tobacco Last Used: 09/1974 - Caffeine Use Caffeine Use: Reports: None - Recreational Drug Use Recreational Drug Use: No H&P Review of Systems - Review of Systems: Review Of Systems: Comprehensive ROS is negative, except as noted in HPI. Exam - Exam Exam: See Below - Vital Signs Vital Signs: Last Vital Signs Temp 97.9 F 06/29/19 10:00 Pulse 82 06/29/19 08:04 Resp 18 06/29/19 12:00 BP 103/45 L 06/29/19 12:00 Pulse Ox 99 06/29/19 12:43 Weight: 224 lb 11.2 oz - Exam Quality Assessment: No: Supplemental Oxygen General: Alert, Oriented, 4 HEENT: Conjunctiva Clear, EOMI, Mucosa Moist & [place], PERRLA. No: Hearing Intact (Hard of hearing) Neck: Supple, Trachea Midline, 2 Lungs: Clear to Auscultation, Normal Respiratory Effort Cardiovascular: Regular Rate, Irregular Rhythm GI/Abdominal Exam: Normal Bowel Sounds, Soft, Non-Tender, No Organomegaly, No Distention, No Abnormal Bruit, No Mass (Male) Exam: Normal Prostate Back Exam: Normal Inspection Extremities: Normal Inspection, Normal Range of Motion, Non-Tender, No Pedal Edema, Normal Capillary Refill Peripheral Pulses: 2+: Posterior Tibial (L), Posterior Tibial (R), Dorsalis Pedis (L), Dorsalis Pedis (R) Skin: Warm, Dry, Intact Neuro Extensive - Mental Status: Alert, Oriented x3, Normal Mood/Affect, Normal Cognition Psychiatric: Alert, Normal Affect, Normal Mood - Patient Data Lab Results Last 24 hrs: Laboratory Results - last 24 hr 06/29/19 06/29/19 06/29/19 Range/Units 06:58 06:58 06:58 WBC 19.17 H (4.23-9.07) K/mm3 RBC 3.25 L (4.63-6.08) M/mm3 Hgb 9.6 L D (13.7-17.5) gm/dl Hct 30.8 L (40.1-51.0) % MCV 94.8 H (79.0-92.2) fl MCH 29.5 (25.7-32.2) pg MCHC 31.2 L (32.2-35.5) g/dl RDW Std Deviation 47.1 H (35.1-43.9) fL Plt Count 123 L (163-337) K/mm3 MPV 12.4 H (9.4-12.3) fl Neut % (Auto) 94.8 H (34.0-67.9) % Lymph % (Auto) 1.4 L (21.8-53.1) % Moore % (Auto) 3.0 L (5.3-12.2) % Eos % (Auto) 0 L (0.8-7.0) Baso % (Auto) 0.1 (0.1-1.2) % Neut # (Auto) 18.19 H (1.78-5.38) K/mm3 Lymph # (Auto) 0.26 L (1.32-3.57) K/mm3 [place] # (Auto) 0.58 (0.30-0.82) K/mm3 Eos # (Auto) 0.00 L (0.04-0.54) K/mm3 Baso # (Auto) 0.01 (0.01-0.08) K/mm3 Manual Slide Review Normal smear PT 17.7 H (9.7-12.0) SECONDS INR 1.67 Sodium 138 (136-145) mEq/L Potassium 3.5 (3.5-5.1) mEq/L Chloride 103 (98-107) mEq/L Carbon Dioxide 21 (21-32) mEq/L Anion Gap 17.5 H (5-15) BUN 29 H (7-18) mg/dL Creatinine 1.6 H (0.7-1.3) mg/dL Est Cr Clr Drug Dosing TNP Estimated GFR (MDRD) 41 (>60) mL/min BUN/Creatinine Ratio 18.1 H (14-18) Glucose 178 H (83-115) mg/dL Lactic Acid (0.4-2.0) mmol/L Calcium 8.3 L (8.5-10.1) mg/dL Total Bilirubin 1.0 (0.2-1.0) mg/dL AST 42 H (15-37) U/L ALT 21 (16-63) U/L Alkaline Phosphatase 79 (46-116) U/L Troponin I 0.496 H* (0.00-0.056) ng/mL Total Protein 6.0 L (6.4-8.2) g/dl Albumin 2.4 L (3.4-5.0) g/dl Globulin 3.6 gm/dL Albumin/Globulin Ratio 0.7 L (1-2) Urine Color (Yellow) Urine Appearance (Clear) Urine pH (5.0-8.0) Ur Specific [place] (1.005-1.030) Urine Protein (Negative) Urine Glucose (UA) (Negative) Urine Ketones (Negative) Urine Occult Blood (Negative) Urine Nitrite (Negative) Urine Bilirubin (Negative) Urine Urobilinogen (0.2-1.0) Ur Leukocyte Esterase (Negative) Urine RBC (0-5) /hpf Urine WBC (0-5) /hpf Ur Squamous Epith Cells (0-5) /hpf Urine Bacteria (FEW) /hpf Urine Mucus (FEW) /hpf Urine Yeast (NOT SEEN) 06/29/19 06/29/19 06/29/19 Range/Units 06:58 07:31 10:05 WBC (4.23-9.07) K/mm3 RBC (4.63-6.08) M/mm3 Hgb (13.7-17.5) gm/dl Hct (40.1-51.0) % MCV (79.0-92.2) fl MCH (25.7-32.2) pg MCHC (32.2-35.5) g/dl RDW Std Deviation (35.1-43.9) fL Plt Count (163-337) K/mm3 MPV (9.4-12.3) fl Neut % (Auto) (34.0-67.9) % Lymph % (Auto) (21.8-53.1) % Moore % (Auto) (5.3-12.2) % Eos % (Auto) (0.8-7.0) Baso % (Auto) (0.1-1.2) % Neut # (Auto) (1.78-5.38) K/mm3 Lymph # (Auto) (1.32-3.57) K/mm3 [place] # (Auto) (0.30-0.82) K/mm3 Eos # (Auto) (0.04-0.54) K/mm3 Baso # (Auto) (0.01-0.08) K/mm3 Manual Slide Review PT (9.7-12.0) SECONDS INR Sodium (136-145) mEq/L Potassium (3.5-5.1) mEq/L Chloride (98-107) mEq/L Carbon Dioxide (21-32) mEq/L Anion Gap (5-15) BUN (7-18) mg/dL Creatinine (0.7-1.3) mg/dL Est Cr Clr Drug Dosing Estimated GFR (MDRD) (>60) mL/min BUN/Creatinine Ratio (14-18) Glucose (83-115) mg/dL Lactic Acid 2.3 H* 1.5 (0.4-2.0) mmol/L Calcium (8.5-10.1) mg/dL Total Bilirubin (0.2-1.0) mg/dL AST (15-37) U/L ALT (16-63) U/L Alkaline Phosphatase (46-116) U/L Troponin I (0.00-0.056) ng/mL Total Protein (6.4-8.2) g/dl Albumin (3.4-5.0) g/dl Globulin gm/dL Albumin/Globulin Ratio (1-2) Urine Color Dark yellow (Yellow) Urine Appearance Slt cloudy H (Clear) Urine pH 6.0 (5.0-8.0) Ur Specific [place] 1.025 (1.005-1.030) Urine Protein 2+ H (Negative) Urine Glucose (UA) Negative (Negative) Urine Ketones Negative (Negative) Urine Occult Blood 2+ H (Negative) Urine Nitrite Negative (Negative) Urine Bilirubin 1+ H (Negative) Urine Urobilinogen 0.2 (0.2-1.0) Ur Leukocyte Esterase Negative (Negative) Urine RBC 5-10 H (0-5) /hpf Urine WBC 0-5 (0-5) /hpf Ur Squamous Epith Cells 0-5 (0-5) /hpf Urine Bacteria Rare (FEW) /hpf Urine Mucus Few (FEW) /hpf Urine Yeast Few H (NOT SEEN) Result Diagrams: 06/29/19 06:58 06/29/19 06:58 Kapil Results Last 24 hrs: Microbiology 06/29/19 07:15 Influenza Type A Antigen Screen - Final Nasal, Unspecified NEGATIVE INFLUENZA A VIRUS AG REFERENCE RANGE: NEGATIVE Influenza Type B Antigen Screen - Final NEGATIVE INFLUENZA B VIRUS AG REFERENCE RANGE: NEGATIVE Imaging Impressions Last 24 hrs: Chest x-ray: Nothing acute. Heart size and exam are normal. Previous sternotomy is seen. Prosthetic heart valve is noted. Lungs are clear with no acute parenchymal change. Sepsis Event Note - Evaluation Sepsis Screening Result: No Definite Risk - Focused Exam Vital Signs: Vital Signs Temp Temp Pulse Resp BP Pulse Ox Pulse Ox 06/29/19 12:43 99 06/29/19 12:00 18 103/45 L 97 06/29/19 11:31 16 95/41 L 99 06/29/19 10:00 97.9 F 18 105/51 L 99 06/29/19 08:04 82 24 H 95/68 98 06/29/19 07:14 104.2 F H 06/29/19 06:29 104.6 F H 104 H 22 H 106/62 86 L Date Exam was Performed: 06/29/19 Time Exam was Performed: 14:44 Problem List Initiated/Reviewed/Updated: Yes Orders Last 24hrs: Active Orders 24 hr Category Date Time Status Patient Status [ADT] Routine ADT 06/29/19 08:48 Active Ambulate [RC] ASDIRECTED Care 06/29/19 12:43 Active EKG Documentation Completion [RC] STAT Care 06/29/19 06:43 Active Oxygen Therapy [RC] PRN Care 06/29/19 12:43 Active VTE/DVT Education [RC] PER UNIT ROUTINE Care 06/29/19 12:43 Active Vital Signs [RC] Q4HR Care 06/29/19 12:43 Active CBC WITH AUTO DIFF [HEME] AM Lab 06/30/19 05:11 Ordered CBC WITH AUTO DIFF [HEME] AM Lab 07/01/19 05:11 Ordered CBC WITH AUTO DIFF [HEME] AM Lab 07/02/19 05:11 Ordered COMPREHENSIVE METABOLIC PN,CMP [CHEM] AM Lab 06/30/19 05:11 Ordered COMPREHENSIVE METABOLIC PN,CMP [CHEM] AM Lab 07/01/19 05:11 Ordered COMPREHENSIVE METABOLIC PN,CMP [CHEM] AM Lab 07/02/19 05:11 Ordered CORONAVIRUS COVID-19 PCR PHL [MREF] Stat Lab 06/29/19 08:45 Received CULTURE BLOOD [BC] Stat Lab 06/29/19 06:45 Ordered CULTURE BLOOD [BC] Stat Lab 06/29/19 06:48 Received MAGNESIUM [CHEM] AM Lab 06/30/19 05:11 Ordered MAGNESIUM [CHEM] AM Lab 07/01/19 05:11 Ordered MAGNESIUM [CHEM] AM Lab 07/02/19 05:11 Ordered PROCALCITONIN [REF] Stat Lab 06/29/19 06:58 Received VANCOMYCIN TROUGH [CHEM] Timed Lab 07/01/19 09:30 Ordered Aspirin [Halfprin] Med 06/30/19 09:00 Active 81 mg PO DAILY Enoxaparin [Lovenox] Med 06/29/19 14:00 Active 40 mg SUBCUT Q24H Enzalutamide [Xtandi] Med 06/30/19 09:00 Active 160 mg PO DAILY Finasteride [Proscar] Med 06/30/19 09:00 Active 5 mg PO DAILY Lactated Ringers [Ringers, Lactated] 1,000 ml Med 06/29/19 07:15 Active IV ASDIRECTED Pharmacy to Dose - Vancomycin Med 06/29/19 11:37 Active 0 dose .XX ASDIRECTED PRN Piperacillin/Tazobactam [Piperacil-Tazobact] 4.5 gm Med 06/29/19 18:00 Active Sodium Chloride 0.9% [Normal Saline] 100 ml IV Q8H Vancomycin 1 gm Med 06/30/19 10:30 Active Vancomycin 250 mg Sodium Chloride 0.9% [Normal Saline] 250 ml IV Q24H Blood Culture x2 Reflex Set [OM.PC] Stat Oth 06/29/19 06:43 Ordered Isolation [COMM] Routine Oth 06/29/19 10:53 Ordered Code Status [Resuscitation Status] Routine Resus Stat 06/29/19 11:29 Ordered Medication Orders Aspirin (Halfprin) 81 mg PO DAILY VIANNEY Enoxaparin Sodium (Lovenox) 40 mg SUBCUT Q24H VIANNEY Finasteride (Proscar) 5 mg PO DAILY VIANNEY Lactated Ringer's (Ringers, Lactated) 1,000 mls @ 150 mls/hr IV ASDIRECTED VIANNEY Last Admin: 06/29/19 07:53 Dose: 150 mls/hr Piperacillin Sod/Tazobactam (Sod 4.5 gm/ Sodium Chloride) 100 mls @ 25 mls/hr IV Q8H VIANNEY Vancomycin HCl 1 gm/Vancomycin HCl 250 mg/ Sodium Chloride 250 mls @ 166.667 mls/hr IV Q24H [facility] Enzalutamide [Xtandi (] 160 Mg Ptom) 160 mg PO DAILY [facility] Vancomycin HCl (Pharmacy To Dose - Vancomycin) 0 dose .XX ASDIRECTED PRN PRN Reason: PHARMACY TO DOSE VANCO Assessment/Plan Comment:: Assessment 83-year-old male with history of aortic bioprosthetic valve, atrial fibrillation , and prostate cancer presents to the emergency department with fever of 104.6 and no clear source of infection. * Patient was seen and treated for beta Streptococcus group B strep 1 month ago for total of 14 days antibiotics. * Fluid resuscitation and broad-spectrum antibiotics given with good hemodynamic results. * Currently treated with Xtandi for his prostate cancer * Not on anticoagulation Plan * Admit to ICU * Continue vancomycin, Rocephin, and Zosyn. * Normal saline 150 mL/h * Discussed case with infectious disease * VTE prophylaxis with Lovenox * CODE STATUS DNR/DNI Addendum Case was discussed with Dr. Ferrell, infectious disease at [facility], and she recommended transfer to [facility] in [place] for HEIDI. Accepting physician at [facility] in [place] is Tepastte - Mortality Measure Prognosis:: Good
[2019-06-29] MEDS ORDERED: Enoxaparin 40 MG/0.4 ML Syringe SUBCUT SCH (14:00)
--- NOTE | 2019-06-29 14:54 | PCM.DCSUM1 ---
Discharge Summary - Hospital Course HPI Initial Comments: 83-year-old male with bioprosthetic aortic valve and prostate cancer was brought to the emergency department this morning after his son found him on the floor. Apparently patient was not feeling well yesterday and did not go to work. Apparently his temperature was 104.5 at home and here in the emergency department it was 104.6. He has a bioprosthetic porcine aortic heart valve. He was admitted to this facility last month with a UTI. Blood cultures grew out beta Streptococcus group B. Echocardiogram was performed did not show any signs of endocarditis. Patient was treated for total of approximately 14 days with antibiotics and the last 7 days with Keflex. In the emergency department he was found to be hypotensive with blood pressure of 95/41. He was given 30 mL/kg IV fluids, started on vancomycin, Rocephin, and Zosyn. Initial white count was 19.17 with lactic acid of 2.3. Lactic acid on repeat at 3 hours was 1.5. Blood pressure did improve to 124/56 with a map of 77. - Discharge Data Discharge Date: 06/29/19 Discharge Disposition: DC/Tfer to Acute Hospital 02 Condition: Good - Referral to Home Health Primary Care Physician: Nikko Hamilton MD - Patient Summary/Data Hospital Course: Assessment 83-year-old male with history of aortic bioprosthetic valve, atrial fibrillation , and prostate cancer presents to the emergency department with fever of 104.6 and no clear source of infection. * Patient was seen and treated for beta Streptococcus group B strep 1 month ago for total of 14 days antibiotics. * Fluid resuscitation and broad-spectrum antibiotics given with good hemodynamic results. * Currently treated with Xtandi for his prostate cancer * Not on anticoagulation Plan * Admit to ICU * Continue vancomycin, Rocephin, and Zosyn. * Normal saline 150 mL/h * Discussed case with infectious disease * VTE prophylaxis with Lovenox * CODE STATUS DNR/DNI Addendum Case was discussed with Dr. Ferrell, infectious disease at [facility], and she recommended transfer to [facility] in [place] for HEIDI. Accepting physician at [facility] in [place] is Jhon - Discharge Plan *PRESCRIPTION DRUG MONITORING PROGRAM REVIEWED*: No *COPY OF PRESCRIPTION DRUG MONITORING REPORT IN PATIENT NADIR: No Home Medications: Home Meds Finasteride [Proscar] 5 mg PO DAILY 10/25/13 [History] Furosemide [Lasix] 10 mg PO DAILY 10/25/13 [History] Denosumab [Prolia] 60 mg IM Q1M 08/09/15 [History] Enzalutamide [Xtandi] 160 mg PO DAILY 05/26/19 [History] Aspirin [Ecotrin EC] 1 tab PO DAILY 06/29/19 [History] Patient Handouts: Sepsis, Diagnosis, Adult Forms: ED Department Discharge Referrals: Nikko Hamilton MD [Primary Care Provider] - - Discharge Summary/Plan Comment DC Time >30 min.: Yes Discharge Summary/Plan Comment: Transfer to [facility] in [place]. - Patient Data Vitals - Most Recent: Last Vital Signs Temp 97.9 F 06/29/19 10:00 Pulse 82 06/29/19 08:04 Resp 18 06/29/19 12:00 BP 103/45 L 06/29/19 12:00 Pulse Ox 99 06/29/19 12:43 Weight - Most Recent: 224 lb 11.2 oz Lab Results - Last 24 hrs: Laboratory Results - last 24 hr 06/29/19 06/29/19 06/29/19 Range/Units 06:58 06:58 06:58 WBC 19.17 H (4.23-9.07) K/mm3 RBC 3.25 L (4.63-6.08) M/mm3 Hgb 9.6 L D (13.7-17.5) gm/dl Hct 30.8 L (40.1-51.0) % MCV 94.8 H (79.0-92.2) fl MCH 29.5 (25.7-32.2) pg MCHC 31.2 L (32.2-35.5) g/dl RDW Std Deviation 47.1 H (35.1-43.9) fL Plt Count 123 L (163-337) K/mm3 MPV 12.4 H (9.4-12.3) fl Neut % (Auto) 94.8 H (34.0-67.9) % Lymph % (Auto) 1.4 L (21.8-53.1) % [place] % (Auto) 3.0 L (5.3-12.2) % Eos % (Auto) 0 L (0.8-7.0) Baso % (Auto) 0.1 (0.1-1.2) % Neut # (Auto) 18.19 H (1.78-5.38) K/mm3 Lymph # (Auto) 0.26 L (1.32-3.57) K/mm3 [place] # (Auto) 0.58 (0.30-0.82) K/mm3 Eos # (Auto) 0.00 L (0.04-0.54) K/mm3 Baso # (Auto) 0.01 (0.01-0.08) K/mm3 Manual Slide Review Normal smear PT 17.7 H (9.7-12.0) SECONDS INR 1.67 Sodium 138 (136-145) mEq/L Potassium 3.5 (3.5-5.1) mEq/L Chloride 103 (98-107) mEq/L Carbon Dioxide 21 (21-32) mEq/L Anion Gap 17.5 H (5-15) BUN 29 H (7-18) mg/dL Creatinine 1.6 H (0.7-1.3) mg/dL Est Cr Clr Drug Dosing TNP Estimated GFR (MDRD) 41 (>60) mL/min BUN/Creatinine Ratio 18.1 H (14-18) Glucose 178 H (83-115) mg/dL Lactic Acid (0.4-2.0) mmol/L Calcium 8.3 L (8.5-10.1) mg/dL Total Bilirubin 1.0 (0.2-1.0) mg/dL AST 42 H (15-37) U/L ALT 21 (16-63) U/L Alkaline Phosphatase 79 (46-116) U/L Troponin I 0.496 H* (0.00-0.056) ng/mL Total Protein 6.0 L (6.4-8.2) g/dl Albumin 2.4 L (3.4-5.0) g/dl Globulin 3.6 gm/dL Albumin/Globulin Ratio 0.7 L (1-2) Urine Color (Yellow) Urine Appearance (Clear) Urine pH (5.0-8.0) Ur Specific [place] (1.005-1.030) Urine Protein (Negative) Urine Glucose (UA) (Negative) Urine Ketones (Negative) Urine Occult Blood (Negative) Urine Nitrite (Negative) Urine Bilirubin (Negative) Urine Urobilinogen (0.2-1.0) Ur Leukocyte Esterase (Negative) Urine RBC (0-5) /hpf Urine WBC (0-5) /hpf Ur Squamous Epith Cells (0-5) /hpf Urine Bacteria (FEW) /hpf Urine Mucus (FEW) /hpf Urine Yeast (NOT SEEN) 06/29/19 06/29/19 06/29/19 Range/Units 06:58 07:31 10:05 WBC (4.23-9.07) K/mm3 RBC (4.63-6.08) M/mm3 Hgb (13.7-17.5) gm/dl Hct (40.1-51.0) % MCV (79.0-92.2) fl MCH (25.7-32.2) pg MCHC (32.2-35.5) g/dl RDW Std Deviation (35.1-43.9) fL Plt Count (163-337) K/mm3 MPV (9.4-12.3) fl Neut % (Auto) (34.0-67.9) % Lymph % (Auto) (21.8-53.1) % [place] % (Auto) (5.3-12.2) % Eos % (Auto) (0.8-7.0) Baso % (Auto) (0.1-1.2) % Neut # (Auto) (1.78-5.38) K/mm3 Lymph # (Auto) (1.32-3.57) K/mm3 [place] # (Auto) (0.30-0.82) K/mm3 Eos # (Auto) (0.04-0.54) K/mm3 Baso # (Auto) (0.01-0.08) K/mm3 Manual Slide Review PT (9.7-12.0) SECONDS INR Sodium (136-145) mEq/L Potassium (3.5-5.1) mEq/L Chloride (98-107) mEq/L Carbon Dioxide (21-32) mEq/L Anion Gap (5-15) BUN (7-18) mg/dL Creatinine (0.7-1.3) mg/dL Est Cr Clr Drug Dosing Estimated GFR (MDRD) (>60) mL/min BUN/Creatinine Ratio (14-18) Glucose (83-115) mg/dL Lactic Acid 2.3 H* 1.5 (0.4-2.0) mmol/L Calcium (8.5-10.1) mg/dL Total Bilirubin (0.2-1.0) mg/dL AST (15-37) U/L ALT (16-63) U/L Alkaline Phosphatase (46-116) U/L Troponin I (0.00-0.056) ng/mL Total Protein (6.4-8.2) g/dl Albumin (3.4-5.0) g/dl Globulin gm/dL Albumin/Globulin Ratio (1-2) Urine Color Dark yellow (Yellow) Urine Appearance Slt cloudy H (Clear) Urine pH 6.0 (5.0-8.0) Ur Specific [place] 1.025 (1.005-1.030) Urine Protein 2+ H (Negative) Urine Glucose (UA) Negative (Negative) Urine Ketones Negative (Negative) Urine Occult Blood 2+ H (Negative) Urine Nitrite Negative (Negative) Urine Bilirubin 1+ H (Negative) Urine Urobilinogen 0.2 (0.2-1.0) Ur Leukocyte Esterase Negative (Negative) Urine RBC 5-10 H (0-5) /hpf Urine WBC 0-5 (0-5) /hpf Ur Squamous Epith Cells 0-5 (0-5) /hpf Urine Bacteria Rare (FEW) /hpf Urine Mucus Few (FEW) /hpf Urine Yeast Few H (NOT SEEN) MAGGIE Results - Last 24 hrs: Microbiology 06/29/19 07:15 Influenza Type A Antigen Screen - Final Nasal, Unspecified NEGATIVE INFLUENZA A VIRUS AG REFERENCE RANGE: NEGATIVE Influenza Type B Antigen Screen - Final NEGATIVE INFLUENZA B VIRUS AG REFERENCE RANGE: NEGATIVE Med Orders - Current: Current Medications Aspirin (Halfprin) 81 mg PO DAILY [facility] Enoxaparin Sodium (Lovenox) 40 mg SUBCUT Q24H VIANNEY Last Admin: 06/29/19 13:52 Dose: 40 mg Finasteride (Proscar) 5 mg PO DAILY [facility] Lactated Ringer's (Ringers, Lactated) 1,000 mls @ 150 mls/hr IV ASDIRECTED VIANNEY Last Infusion: 06/29/19 13:52 Dose: 999 mls/hr Piperacillin Sod/Tazobactam (Sod 4.5 gm/ Sodium Chloride) 100 mls @ 25 mls/hr IV Q8H [facility] Vancomycin HCl 1 gm/Vancomycin HCl 250 mg/ Sodium Chloride 250 mls @ 166.667 mls/hr IV Q24H [facility] Enzalutamide [Xtandi (] 160 Mg Ptom) 160 mg PO DAILY [facility] Vancomycin HCl (Pharmacy To Dose - Vancomycin) 0 dose .XX ASDIRECTED PRN PRN Reason: PHARMACY TO DOSE VANCO Discontinued Medications Acetaminophen (Tylenol) 650 mg PO NOW ONE Stop: 06/29/19 07:08 Last Admin: 06/29/19 07:14 Dose: 650 mg Lactated Ringer's (Ringers, Lactated) 500 mls @ 999 mls/hr IV .BOLUS ONE Stop: 06/29/19 07:14 Last Admin: 06/29/19 06:53 Dose: 999 mls/hr Ceftriaxone Sodium 2 gm/ (Sodium Chloride) 100 mls @ 200 mls/hr IV Q24H [facility] Last Admin: 06/29/19 08:02 Dose: 200 mls/hr Piperacillin Sod/Tazobactam (Sod 4.5 gm/ Sodium Chloride) 100 mls @ 200 mls/hr IV ONETIME ONE Stop: 06/29/19 09:07 Last Admin: 06/29/19 09:49 Dose: Not Given Vancomycin HCl 2 gm/ Sodium (Chloride) 250 mls @ 250 mls/hr IV Q24H [facility] Last Admin: 06/29/19 09:50 Dose: Not Given Piperacillin Sod/Tazobactam (Sod 4.5 gm/ Sodium Chloride) 100 mls @ 200 mls/hr IV ONETIME ONE Stop: 06/29/19 09:59 Last Admin: 06/29/19 10:38 Dose: 200 mls/hr Vancomycin HCl 2 gm/ Sodium (Chloride) 500 mls @ 250 mls/hr IV Q24H [facility] Stop: 06/29/19 13:00 Last Admin: 06/29/19 10:25 Dose: 250 mls/hr Lactated Ringer's (Ringers, Lactated) 1,000 mls @ 999 mls/hr IV .BOLUS ONE Stop: 06/29/19 11:05 Last Admin: 06/29/19 10:38 Dose: 999 mls/hr
[2019-06-29] MEDS ORDERED: Piperacillin/Tazobactam 4.5 GM in Sodium Chloride 0.9% 100 ML IV SCH (18:00)
[2019-06-30] MEDS ORDERED: Aspirin 81 MG Tab.EC PO SCH (09:00)
[2019-06-30] MEDS ORDERED: Finasteride 5 MG Tab PO SCH (09:00)
[2019-06-30] MEDS ORDERED: ENZALUTAMIDE 160 MG PO SCH (09:00)
[2019-06-30] MEDS ORDERED: Vancomycin 1 GM, Vancomycin 250 MG in Sodium Chloride 0.9% 250 ML IV SCH (10:30)
== END 2019-06-29 15:19 | DRG 872 ==
LOC: JD.ED 06:19 → JD.ICU 08:48
PROVIDERS: ADMIT Family Medicine; ATTEND Family Medicine
DX: A41.9 Sepsis, unspecified organism (principal); D64.89 Other specified anemias; R79.89 Other specified abnormal findings of blood chemistry; H54.7 Unspecified visual loss; Z95.3 Presence of xenogenic heart valve; C61 Malignant neoplasm of prostate; E66.9 Obesity, unspecified; I10 Essential (primary) hypertension; Z85.46 Personal history of malignant neoplasm of prostate; I48.91 Unspecified atrial fibrillation; Z79.899 Other long term (current) drug therapy; Z96.653 Presence of artificial knee joint, bilateral; Z79.82 Long term (current) use of aspirin; Z95.2 Presence of prosthetic heart valve; Z90.49 Acquired absence of other specified parts of digestive tract; Z98.49 Cataract extraction status, unspecified eye; Z87.442 Personal history of urinary calculi; Z68.31 Body mass index [BMI] 31.0-31.9, adult
CPT/HCPCS: 36415; 71045; 80053; 81001; 83605; 84145; 84484; 85025; 85610; 87040; 87804 ×2; 93005; A9270; J0696; J7050; J7120 ×2; 87186; 96361; 96365; 99285-25; J1650; J2543; J3370; J7040; U0001

== ENCOUNTER 2019-07-13 10:50 | Emergency (ER) | payer MEDICARE, OTHER ==
[2019-07-13] MEDS ORDERED: HYDROmorphone 0.5 MG/0.5 ML Syringe IVPUSH ONE (11:07)
[2019-07-13 11:19] VITALS: BP 131/66; PULSE 82
[2019-07-13] MEDS ORDERED: Sodium Chloride 0.9% 10 ML Syringe FLUSH PRN (11:30)
[2019-07-13] MEDS ORDERED: HYDROmorphone 0.5 MG/0.5 ML Syringe ONE (11:36)
[2019-07-13] MEDS ORDERED: Lactated Ringers 1,000 ML IV ONE (12:23)
--- NOTE | 2019-07-13 14:17 | EDM.PDOC ---
ED HPI GENERAL MEDICAL PROBLEM - General Chief Complaint: General Stated Complaint: SENT BY DR FERRELL IN [place] Time Seen by Provider: 07/13/19 10:59 Source of Information: Reports: Patient, RN Notes Reviewed - History of Present Illness INITIAL COMMENTS - FREE TEXT/NARRATIVE: 84 year old male has been having diarrhea for 2 to 3 wks. 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 He was on IV abx while in the hospital and now getting outpatient home abx administered by his son. He has no current abd pain. He states he was feeling dry and dehydrated but less so today after drinking some "powerade" at home. He is only having about 1 diarrhea stool per day but when he does go it is "watery", no blood. - Related Data Allergies Allergy/AdvReac Type Severity Reaction Status Date / Time No Known Allergies Allergy Verified 07/13/19 11:19 Home Meds: Home Meds Finasteride [Proscar] 5 mg PO DAILY 10/25/13 [History] Furosemide [Lasix] 10 mg PO DAILY 10/25/13 [History] Denosumab [Prolia] 60 mg IM Q1M 08/09/15 [History] Enzalutamide [Xtandi] 160 mg PO DAILY 05/26/19 [History] Aspirin [Ecotrin EC] 1 tab PO DAILY 06/29/19 [History] Past Medical History HEENT History: Reports: Impaired Vision Cardiovascular History: Reports: Heart Valve Replacement, Hypertension, Other ( See Below) Other Cardiovascular History: aortic valve replacement about 2 yrs ago, endocarditis Respiratory History: Reports: SOB Genitourinary History: Reports: Renal Calculus Other Genitourinary History: Prostate Cancer Neurological History: Reports: None Psychiatric History: Reports: None Endocrine/Metabolic History: Reports: Obesity/BMI 30+ Hematologic History: Reports: None Immunologic History: Reports: None Oncologic (Cancer) History: Reports: Prostate Dermatologic History: Reports: None - Infectious Disease History Infectious Disease History: Reports: None - Past Surgical History HEENT Surgical History: Reports: Cataract Surgery Cardiovascular Surgical History: Reports: Valve Replacement GI Surgical History: Reports: Appendectomy, Cholecystectomy, Colonoscopy Musculoskeletal Surgical History: Reports: Knee Replacement Social & Family History - Family History Family Medical History: Noncontributory - Tobacco Use Smoking Status *Q: Never Smoker - Caffeine Use Caffeine Use: Reports: Coffee ED ROS GENERAL - Review of Systems Review Of Systems: See Below Constitutional: Denies: Fever, Chills, Diaphoresis HEENT: Reports: No Symptoms Respiratory: Denies: Shortness of Breath Cardiovascular: Denies: Chest Pain GI/Abdominal: Reports: Diarrhea ("once daily that started when he was in the hospital"). Denies: Abdominal Pain, Nausea Musculoskeletal: Reports: No Symptoms Skin: Reports: No Symptoms Neurological: Reports: No Symptoms ED EXAM, GENERAL - Physical Exam Exam: See Below General Appearance: Alert, No Apparent Distress Eye Exam: Bilateral Eye: PERRL Throat/Mouth: Other (oral mucosa mildly dry) Neck: Supple Respiratory/Chest: No Respiratory Distress, Lungs Clear, Normal Breath Sounds Cardiovascular: Regular Rate, Rhythm GI/Abdominal: Soft, Non-Tender. No: Guarding, Rebound Back Exam: Normal Inspection. No: CVA Tenderness (L), CVA Tenderness (R) Extremities: No: Pedal Edema, Leg Pain, Redness Neurological: Alert, Oriented, No Motor/Sensory Deficits Skin Exam: Warm, Dry, Normal Color Course - Vital Signs Last Recorded V/S: Last Vital Signs Temp 97.7 F 07/13/19 11:15 Pulse 82 07/13/19 11:15 Resp 20 07/13/19 11:15 BP 131/66 07/13/19 11:15 Pulse Ox 96 07/13/19 11:15 - Orders/Labs/Meds Orders: Active Orders 24 hr Category Date Time Status EKG 12 Lead [EKG Documentation Completion] [RC] STAT Care 07/13/19 11:10 Inactive Peripheral IV Care [RC] . DIRECTED Care 07/13/19 11:30 Active Peripheral IV Insertion Adult [OM.PC] Stat Oth 07/13/19 11:30 Ordered Labs: Laboratory Tests 07/13/19 07/13/19 07/13/19 Range/Units 11:41 11:41 11:41 WBC 14.97 H (4.23-9.07) K/mm3 RBC 3.02 L (4.63-6.08) M/mm3 Hgb 8.5 L (13.7-17.5) gm/dl Hct 27.6 L (40.1-51.0) % MCV 91.4 D (79.0-92.2) fl MCH 28.1 (25.7-32.2) pg MCHC 30.8 L (32.2-35.5) g/dl RDW Std Deviation 46.6 H (35.1-43.9) fL Plt Count 180 (163-337) K/mm3 MPV 13.1 H (9.4-12.3) fl Neut % (Auto) 85.8 H (34.0-67.9) % Lymph % (Auto) 4.9 L (21.8-53.1) % [place] % (Auto) 8.8 (5.3-12.2) % Eos % (Auto) 0.1 L (0.8-7.0) Baso % (Auto) 0.1 (0.1-1.2) % Neut # (Auto) 12.84 H (1.78-5.38) K/mm3 Lymph # (Auto) 0.74 L (1.32-3.57) K/mm3 [place] # (Auto) 1.31 H (0.30-0.82) K/mm3 Eos # (Auto) 0.02 L (0.04-0.54) K/mm3 Baso # (Auto) 0.01 (0.01-0.08) K/mm3 Manual Slide Review Abnormal smear Sodium 135 L (136-145) mEq/L Potassium 3.3 L (3.5-5.1) mEq/L Chloride 100 (98-107) mEq/L Carbon Dioxide 24 (21-32) mEq/L Anion Gap 14.3 (5-15) BUN 19 H (7-18) mg/dL Creatinine 1.3 (0.7-1.3) mg/dL Est Cr Clr Drug Dosing 43.44 mL/min Estimated GFR (MDRD) 52 (>60) mL/min BUN/Creatinine Ratio 14.6 (14-18) Glucose 149 H (83-115) mg/dL Calcium 8.9 (8.5-10.1) mg/dL Total Bilirubin 0.4 (0.2-1.0) mg/dL AST 21 (15-37) U/L ALT 19 (16-63) U/L Alkaline Phosphatase 78 (46-116) U/L C-Reactive Protein 22.1 H* (<1.0) mg/dL Total Protein 6.6 (6.4-8.2) g/dl Albumin 2.2 L (3.4-5.0) g/dl Globulin 4.4 gm/dL Albumin/Globulin Ratio 0.5 L (1-2) Meds: Medications Discontinued Medications Generic Name Dose Route Start Last Admin Trade Name Frecaity PRN Reason Stop Dose Admin Hydromorphone HCl Confirm 07/13/19 11:36 07/13/19 11:40 Dilaudid Administered 07/13/19 11:37 Not Given Dose 0.5 mg .ROUTE .STK-MED ONE Lactated Ringer's 1,000 mls @ 999 mls/hr 07/13/19 12:23 07/13/19 12:30 Ringers, Lactated IV 07/13/19 13:23 999 mls/hr .BOLUS ONE Administration Sodium Chloride 10 ml 07/13/19 11:30 07/13/19 12:30 Saline Flush FLUSH 10 ml ASDIRECTED PRN Administration Keep Vein Open - Re-Assessments/Exams Free Text/Narrative Re-Assessment/Exam: 07/13/19 18:05. We gave 1 liter of IV fluid quite awhile ago. He has been resting comfortably. Labs as documented. WBC 14,900 today improved from around 22,000 at the clinic yesterday. C dif. order placed 6 1/2 hrs ago. He has not been able to provide a stool sample, we had him eat a few hrs ago and still unable to provide a stool sample. He told his nurse he doesn't expect to have a BM until early tomorrow AM. Have held him now for about 7 hrs. Discharge instr. as documented. Departure - Departure Time of Disposition: 17:56 Disposition: Home, Self-Care 01 Condition: Fair Clinical Impression: Diarrhea, Dehydration symptoms - Discharge Information Instructions: Diarrhea, Adult, [id number] Referrals: Nely Ferrell MD [Primary Care Provider] - Forms: ED Department Discharge Additional Instructions: Continue with clear liquids and bland diet as tolerated. Order was placed for stool study but you have been unable to provide that while here in the ED even after eating. Collect stool sample at home in the container provided by the clinic after seeing Dr Hamilton yesterday the next time you have a BM. Than make sure that does get to the clinic lab as soon as possible. Continue current medications as prescribed. Follow up clinic as needed. Return to ED as needed. Sepsis Event Note - Evaluation Sepsis Screening Result: No Definite Risk - Focused Exam Date Exam was Performed: 07/14/19 Time Exam was Performed: 07:26 - My Orders Last 24 Hours: My Active Orders 07/13/19 11:10 EKG 12 Lead [EKG Documentation Completion] [RC] STAT 07/13/19 11:30 Peripheral IV Care [RC] . DIRECTED Peripheral IV Insertion Adult [OM.PC] Stat - Assessment/Plan Last 24 Hours: My Active Orders 07/13/19 11:10 EKG 12 Lead [EKG Documentation Completion] [RC] STAT 07/13/19 11:30 Peripheral IV Care [RC] . DIRECTED Peripheral IV Insertion Adult [OM.PC] Stat
== END 2019-07-13 18:30 | disposition home or self-care (01) ==
LOC: JD.ED 10:50
DX: R19.7 Diarrhea, unspecified (principal); I10 Essential (primary) hypertension; E66.9 Obesity, unspecified; Z68.30 Body mass index [BMI] 30.0-30.9, adult; Z90.49 Acquired absence of other specified parts of digestive tract; Z79.82 Long term (current) use of aspirin; Z79.899 Other long term (current) drug therapy
CPT/HCPCS: 36415; 80053; 85025; 86140; 96360; 99284; J7120

== ENCOUNTER 2020-11-17 20:42 | Emergency (ER) | payer MEDICARE, OTHER ==
[2020-11-17 20:56] VITALS: BP 167/89; PULSE 110
[2020-11-17] MEDS ORDERED: Lidocaine 1% with EPINEPHrine 1:100,000 10 ML MDV INFILT ONE (21:06)
[2020-11-17] MEDS ORDERED: Oxymetazoline 0.05% Nasal Spray 30 ML Bottle NAS ONE (21:06)
--- NOTE | 2020-11-17 22:06 | EDM.PDOC ---
ED HPI GENERAL MEDICAL PROBLEM - General Chief Complaint: ENT Problem Stated Complaint: NOSE BLEED Time Seen by Provider: 11/17/20 20:56 Source of Information: Reports: Patient, RN Notes Reviewed History Limitations: Reports: No Limitations - History of Present Illness INITIAL COMMENTS - FREE TEXT/NARRATIVE: Patient is an 85-year-old male presenting to the emergency department with complaints of left-sided epistaxis. Reports about 30 minutes prior to come to the ER, he developed bleeding from this nare. He was seen in the walk-in clinic 7 days ago for bleeding to the same nare. Had cauterization done at that time and bleeding has stopped until today. Patient is on Eliquis. He has had no trauma to the nare. He has been applying Bonesteel nasal gel twice daily. - Related Data Allergies Allergy/AdvReac Type Severity Reaction Status Date / Time No Known Allergies Allergy Verified 11/17/20 20:56 Home Meds: Home Meds Finasteride [Proscar] 5 mg PO DAILY 10/25/13 [History] Furosemide [Lasix] 20 mg PO DAILY 10/25/13 [History] Denosumab [Prolia] 60 mg IM Q1M 08/09/15 [History] Enzalutamide [Xtandi] 160 mg PO DAILY 05/26/19 [History] Apixaban [Eliquis] 5 mg PO BID 11/17/20 [History] Tamsulosin [Tamsulosin 24 Hr] 0.4 mg PO DAILY 11/17/20 [History] Vancomycin [Vancocin 125 MG Capsule] 125 mg PO ASDIRECTED 11/17/20 [History] cephALEXin [Cephalexin] 500 mg PO Q6H 11/17/20 [History] nitrofurantoin macrocrystaL [Nitrofurantoin] 100 mg PO BID 11/17/20 [History] Past Medical History HEENT History: Reports: Impaired Vision Cardiovascular History: Reports: Heart Valve Replacement, Hypertension, Other (See Below) Other Cardiovascular History: aortic valve replacement about 7 yrs ago, endocarditis Respiratory History: Reports: SOB Genitourinary History: Reports: Renal Calculus Other Genitourinary History: Prostate Cancer Musculoskeletal History: Reports: Osteoarthritis Neurological History: Reports: None Psychiatric History: Reports: None Endocrine/Metabolic History: Reports: Obesity/BMI 30+ Hematologic History: Reports: None Immunologic History: Reports: None Oncologic (Cancer) History: Reports: Prostate Dermatologic History: Reports: None - Infectious Disease History Infectious Disease History: Reports: None - Past Surgical History HEENT Surgical History: Reports: Cataract Surgery Cardiovascular Surgical History: Reports: Valve Replacement GI Surgical History: Reports: Appendectomy, Cholecystectomy, Colonoscopy Male Surgical History: Reports: Prostate Biopsy Musculoskeletal Surgical History: Reports: Knee Replacement Social & Family History - Family History Family Medical History: No Pertinent Family History - Tobacco Use Tobacco Use Status *Q: Former Tobacco User Used Tobacco, but Quit: Yes Month/Year Tobacco Last Used: 04/1979 - Caffeine Use Caffeine Use: Reports: None - Recreational Drug Use Recreational Drug Use: No Drug Use in Last 12 Months: No ED ROS ENT - Review of Systems Review Of Systems: Comprehensive ROS is negative, except as noted in HPI. ED EXAM, ENT - Physical Exam Exam: See Below Exam Limited By: No Limitations General Appearance: Alert, WD/WN, No Apparent Distress Nose: Active Bleeding (Small amount from left nare. no visible source of bleeding), Dried Blood Mouth/Throat: Normal Inspection, Normal Gums, Normal Lips, Normal Oropharynx, Normal Teeth, Other (Small amount of blood noted to oropharynx) Respiratory/Chest: No Respiratory Distress, Lungs Clear, Normal Breath Sounds, No Accessory Muscle Use, Chest Non-Tender Cardiovascular: Normal Peripheral Pulses, Regular Rate, Rhythm, No Edema, No Gallop, No JVD, No Murmur, No Rub Neurological: Alert, Oriented, CN II-XII Intact, Normal Cognition, Normal Gait, Normal Reflexes, No Motor/Sensory Deficits Psychiatric: Normal Affect, Normal Mood Skin: Warm, Dry, Intact, Normal Color, No Rash Course - Vital Signs Last Recorded V/S: Last Vital Signs Temp 97 F 11/17/20 20:53 Pulse 110 H 11/17/20 20:53 Resp 16 11/17/20 20:53 BP 167/89 H 11/17/20 20:53 Pulse Ox 93 L 11/17/20 20:53 - Orders/Labs/Meds Meds: Medications Discontinued Medications Generic Name Dose Route Start Last Admin Trade Name Freq PRN Reason Stop Dose Admin Lidocaine/Epinephrine 2 ml 11/17/20 21:06 Lidocaine 1% With Epinephrine 1:100,000 10 Ml Mdv INFILT 11/17/20 21:07 ONETIME ONE Oxymetazoline HCl 2 ml 11/17/20 21:06 Oxymetazoline 0.05% Nasal [place] 30 Ml Bottle LEANNA 11/17/20 21:07 ONETIME ONE Tranexamic Acid 1,000 mg 11/17/20 21:06 Tranexamic Acid 1,000 Mg/10 Ml Amp TOP 11/17/20 21:07 ONETIME ONE - Re-Assessments/Exams Free Text/Narrative Re-Assessment/Exam: Patient is an 85-year-old male presenting to the emergency department with complaints of left-sided nosebleed. Began about 30 to 45 minutes prior to coming to ER. On exam, he does have a small amount of bleeding from the left nare. I was unfortunate not able to locate the source of the bleed in order to perform cauterization. I have packed the left nare with a mixture of Afrin, lidocaine with epinephrine, and TXA. We will let this sit for about 1/2-hour and then reassess. 11/17/20 22:06 Nasal packing was removed in the left nare. There is no active bleeding visible at this time. We will watch the patient for short period time to ensure that bleeding does not recur. 11/17/20 22:27 Patient unfortunately had recurrence of bleeding from the left nare. Discussed option of trying liquid cocaine, however he is opted to have Rhino Rocket inserted as he would like to go home and get some sleep. He has had this done in the past and is aware of the process. 7.5 cm anterior posterior Rhino Rocket was inserted without difficulty. Inflated with 3 cc of air. Bleeding has subsided. He has been sent home with the syringe should he need to add add itional air if he has any bleeding around it. Recommend that he keep this in place until Thursday evening and then deflate the balloon and remove. Discussed return precautions. Discharge instructions as documented. Departure - Departure Time of Disposition: 22:27 Disposition: Home, Self-Care 01 Condition: Good Clinical Impression: Epistaxis - Discharge Information *PRESCRIPTION DRUG MONITORING PROGRAM REVIEWED*: No *COPY OF PRESCRIPTION DRUG MONITORING REPORT IN PATIENT NADIR: No Instructions: Nosebleed, Adult Referrals: Nikko Hamilton MD [Primary Care Provider] - Forms: ED Department Discharge Additional Instructions: You were seen in the emergency department this evening for left-sided nosebleed. Medications were applied to attempt to stop the bleeding, unfortunately this was not successful. A Rhino Rocket nasal packing has been inserted. This should stay in until Thursday evening. After that time, you may deflate the balloon and remove it. If you should experience recurrence of bleeding after this and it does not stop, you should return to the emergency department for reevaluation. Sepsis Event Note (ED) - Evaluation Sepsis Screening Result: No Definite Risk - Focused Exam Vital Signs: Vital Signs Temp Pulse Resp BP Pulse Ox 11/17/20 20:53 97 F 110 H 16 167/89 H 93 L
== END 2020-11-17 22:37 | disposition home or self-care (01) ==
LOC: JD.ED 20:42
DX: R04.0 Epistaxis (principal); I10 Essential (primary) hypertension; E66.9 Obesity, unspecified; Z68.29 Body mass index [BMI] 29.0-29.9, adult; Z87.891 Personal history of nicotine dependence; Z79.01 Long term (current) use of anticoagulants; Z79.899 Other long term (current) drug therapy
CPT/HCPCS: 30905; 99283; A9270; 30901; 99282

== ENCOUNTER 2020-11-18 06:51 | Emergency (ER) | payer MEDICARE, OTHER ==
[2020-11-18 07:18] VITALS: BP 165/110; PULSE 110
[2020-11-18] MEDS ORDERED: Oxymetazoline 0.05% Nasal Spray 30 ML Bottle NAS ONE (07:41)
--- NOTE | 2020-11-18 07:53 | EDM.PDOC ---
ED HPI GENERAL MEDICAL PROBLEM - General Chief Complaint: ENT Problem Stated Complaint: ENT PROBLEM/ CORD PLUGGED Time Seen by Provider: 11/18/20 07:16 Source of Information: Reports: Patient History Limitations: Reports: No Limitations - History of Present Illness INITIAL COMMENTS - FREE TEXT/NARRATIVE: The patient presents because he cannot breath out of his right nostril. He was here last night for epistaxis and bleeding from his left nostril. He needed a rhino rocket. The patient slept good until 5am and could not breath out of his right nostril. He has not had any more bleeding. Onset: Gradual Duration: Hour(s): Severity: Moderate Improves with: Reports: None Worsens with: Reports: None Associated Symptoms: Reports: No Other Symptoms Left Nose Pain Score (Numeric/FACES): 4 - Related Data Allergies Allergy/AdvReac Type Severity Reaction Status Date / Time No Known Allergies Allergy Verified 11/18/20 07:14 Home Meds: Home Meds Finasteride [Proscar] 5 mg PO DAILY 10/25/13 [History] Furosemide [Lasix] 20 mg PO DAILY 10/25/13 [History] Denosumab [Prolia] 60 mg IM Q1M 08/09/15 [History] Enzalutamide [Xtandi] 160 mg PO DAILY 05/26/19 [History] Apixaban [Eliquis] 5 mg PO BID 11/17/20 [History] Tamsulosin [Tamsulosin 24 Hr] 0.4 mg PO DAILY 11/17/20 [History] Vancomycin [Vancocin 125 MG Capsule] 125 mg PO ASDIRECTED 11/17/20 [History] cephALEXin [Cephalexin] 500 mg PO Q6H 11/17/20 [History] nitrofurantoin macrocrystaL [Nitrofurantoin] 100 mg PO BID 11/17/20 [History] Past Medical History HEENT History: Reports: Impaired Vision Cardiovascular History: Reports: Heart Valve Replacement, Hypertension, Other (See Below) Other Cardiovascular History: aortic valve replacement about 7 yrs ago, endocarditis Respiratory History: Reports: SOB Genitourinary History: Reports: Renal Calculus Other Genitourinary History: Prostate Cancer Musculoskeletal History: Reports: Osteoarthritis Neurological History: Reports: None Psychiatric History: Reports: None Endocrine/Metabolic History: Reports: Obesity/BMI 30+ Hematologic History: Reports: None Immunologic History: Reports: None Oncologic (Cancer) History: Reports: Prostate Dermatologic History: Reports: None - Infectious Disease History Infectious Disease History: Reports: None - Past Surgical History HEENT Surgical History: Reports: Cataract Surgery Cardiovascular Surgical History: Reports: Valve Replacement Respiratory Surgical History: Reports: None GI Surgical History: Reports: Appendectomy, Cholecystectomy, Colonoscopy Male Surgical History: Reports: Prostate Biopsy Endocrine Surgical History: Reports: None Musculoskeletal Surgical History: Reports: Knee Replacement Social & Family History - Family History Family Medical History: No Pertinent Family History - Tobacco Use Tobacco Use Status *Q: Never Tobacco User - Caffeine Use Caffeine Use: Reports: None ED ROS ENT - Review of Systems Review Of Systems: See Below Constitutional: Reports: No Symptoms HEENT: Reports: Other (cannot breath out of right nostril) Respiratory: Reports: No Symptoms Cardiovascular: Reports: No Symptoms Endocrine: Reports: No Symptoms GI/Abdominal: Reports: No Symptoms : Reports: No Symptoms Musculoskeletal: Reports: No Symptoms ED EXAM, ENT - Physical Exam Exam: See Below Exam Limited By: No Limitations General Appearance: Alert, No Apparent Distress Ears: Normal External Exam Nose: Other (Rhino rocket in left nostril. No bleeding from the right) ED ENT PROCEDURES - Epistaxis Procedure Indication: Epistaxis Recent anticoagulants/antiplatlets: Yes Uncontrolled HTN: No Recent septal/nasal surgery: No Site of bleeding: Left Nare Topical Meds: Other (afrin) Ice pack to area: No Chemical cautery: Silver Nitrate Topical Complications: No Course - Vital Signs Last Recorded V/S: Last Vital Signs Temp 98.5 F 11/18/20 07:15 Pulse 110 H 11/18/20 07:15 Resp 18 11/18/20 07:15 BP 165/110 H 11/18/20 07:15 Pulse Ox 95 11/18/20 07:15 - Orders/Labs/Meds Meds: Medications Discontinued Medications Generic Name Dose Route Start Last Admin Trade Name Hong PRN Reason Stop Dose Admin Oxymetazoline HCl 1 ml 11/18/20 07:41 11/18/20 07:49 Oxymetazoline 0.05% Nasal [place] 30 Ml Bottle LEANNA 11/18/20 07:42 2 spray ONETIME ONE Administration - Re-Assessments/Exams Free Text/Narrative Re-Assessment/Exam: 11/18/20 07:52 I took out the air in the rhino rocket and removed it. I also had my nurse put some afrin in. I will go take a look. 11/18/20 08:01 I found a small area with some oozing blood in the left nostril and I cauterized it. I will see how he does. He says he can breath out of his nose now. Departure - Departure Time of Disposition: 08:15 Disposition: Home, Self-Care 01 Condition: Good Clinical Impression: Epistaxis - Discharge Information *PRESCRIPTION DRUG MONITORING PROGRAM REVIEWED*: Not Applicable *COPY OF PRESCRIPTION DRUG MONITORING REPORT IN PATIENT NADIR: Not Applicable Referrals: Nikko Hamilton MD [Primary Care Provider] - 1 Week Forms: ED Department Discharge Additional Instructions: Take your medication as prescribed. Use ayr 2 to 3 times per day in each nostril. Try the afrin tomorrow to help keep your nasal passages open. Please return if you are worse. Sepsis Event Note (ED) - Evaluation Sepsis Screening Result: No Definite Risk - Focused Exam Vital Signs: Vital Signs Temp Pulse Resp BP Pulse Ox 11/18/20 07:15 98.5 F 110 H 18 165/110 H 95
== END 2020-11-18 08:06 | disposition home or self-care (01) ==
LOC: JD.ED 06:51
DX: R04.0 Epistaxis (principal); I10 Essential (primary) hypertension; M19.90 Unspecified osteoarthritis, unspecified site; E66.9 Obesity, unspecified; Z79.01 Long term (current) use of anticoagulants; Z79.899 Other long term (current) drug therapy
CPT/HCPCS: 30901; 99283; A9270; 99282

== ENCOUNTER 2020-12-30 16:20 | Emergency (ER) | payer MEDICARE, OTHER ==
[2020-12-30 16:32] VITALS: BP 159/107; PULSE 123
--- NOTE | 2020-12-30 16:57 | EDM.PDOC ---
ED HPI GENERAL MEDICAL PROBLEM - General Chief Complaint: ENT Problem Stated Complaint: CHEEKS BLEEDING Time Seen by Provider: 12/30/20 16:43 Source of Information: Reports: Patient History Limitations: Reports: No Limitations - History of Present Illness INITIAL COMMENTS - FREE TEXT/NARRATIVE: The patient presents with left lower lip bleeding. He is on eliquis. He has dry lips and his lower lip cracked and starting bleeding. He has been putting pressure on it but it keeps bleeding. Onset: Gradual Duration: Hour(s): Improves with: Reports: None Worsens with: Reports: None Associated Symptoms: Reports: No Other Symptoms - Related Data Allergies Allergy/AdvReac Type Severity Reaction Status Date / Time No Known Allergies Allergy Verified 12/30/20 16:32 Home Meds: Home Meds Finasteride [Proscar] 5 mg PO DAILY 10/25/13 [History] Denosumab [Prolia] 60 mg IM Q1M 08/09/15 [History] Enzalutamide [Xtandi] 160 mg PO DAILY 05/26/19 [History] Apixaban [Eliquis] 5 mg PO BID 11/17/20 [History] Tamsulosin [Tamsulosin 24 Hr] 0.4 mg PO DAILY 11/17/20 [History] Vancomycin [Vancocin 125 MG Capsule] 125 mg PO ASDIRECTED 11/17/20 [History] cephALEXin [Cephalexin] 500 mg PO Q6H 11/17/20 [History] Past Medical History HEENT History: Reports: Impaired Vision Cardiovascular History: Reports: Heart Valve Replacement, Hypertension, Other (See Below) Other Cardiovascular History: aortic valve replacement about 7 yrs ago, endocarditis Respiratory History: Reports: SOB Genitourinary History: Reports: Renal Calculus Other Genitourinary History: Prostate Cancer Musculoskeletal History: Reports: Osteoarthritis Neurological History: Reports: None Psychiatric History: Reports: None Endocrine/Metabolic History: Reports: Obesity/BMI 30+ Hematologic History: Reports: None Immunologic History: Reports: None Oncologic (Cancer) History: Reports: Prostate Dermatologic History: Reports: None - Infectious Disease History Infectious Disease History: Reports: None - Past Surgical History HEENT Surgical History: Reports: Cataract Surgery Cardiovascular Surgical History: Reports: Valve Replacement Respiratory Surgical History: Reports: None GI Surgical History: Reports: Appendectomy, Cholecystectomy, Colonoscopy Male Surgical History: Reports: Prostate Biopsy Endocrine Surgical History: Reports: None Musculoskeletal Surgical History: Reports: Knee Replacement Social & Family History - Family History Family Medical History: No Pertinent Family History - Tobacco Use Tobacco Use Status *Q: Never Tobacco User Second Hand Smoke Exposure: No - Caffeine Use Caffeine Use: Reports: Coffee - Recreational Drug Use Recreational Drug Use: No ED ROS ENT - Review of Systems Review Of Systems: See Below Constitutional: Reports: No Symptoms HEENT: Reports: Other (left lower lip bleeding) Respiratory: Reports: No Symptoms Cardiovascular: Reports: No Symptoms Endocrine: Reports: No Symptoms GI/Abdominal: Reports: No Symptoms : Reports: No Symptoms Musculoskeletal: Reports: No Symptoms ED EXAM, ENT - Physical Exam Exam: See Below Exam Limited By: No Limitations General Appearance: Alert, No Apparent Distress Ears: Normal External Exam Nose: Normal Inspection Mouth/Throat: Other (lower lip has an area with some oozing of blood.) Course - Vital Signs Last Recorded V/S: Last Vital Signs Temp 97.1 F 12/30/20 16:31 Pulse 123 H 12/30/20 16:31 Resp 20 12/30/20 16:31 BP 159/107 H 12/30/20 16:31 Pulse Ox 94 L 12/30/20 16:31 - Re-Assessments/Exams Free Text/Narrative Re-Assessment/Exam: 12/30/20 16:56 I used silver nitrate and it stopped. I will see if it holds. 12/30/20 17:28 He did not bleed any more. I will discharge him home. Departure - Departure Time of Disposition: 17:30 Disposition: Home, Self-Care 01 Condition: Good Clinical Impression: Lip abrasion Qualifiers: Encounter type: initial encounter Qualified Code(s): S00.511A - Abrasion of lip, initial encounter - Discharge Information *PRESCRIPTION DRUG MONITORING PROGRAM REVIEWED*: Not Applicable *COPY OF PRESCRIPTION DRUG MONITORING REPORT IN PATIENT NADIR: Not Applicable Referrals: Nikko Hamilton MD [Primary Care Provider] - Forms: ED Department Discharge Additional Instructions: Try to put some vasaline, lip balm or chap stick on your lips to keep them moist. If it bleeds again, put some pressure on it for 10 to 15 minutes. If it does not stop please return. Sepsis Event Note (ED) - Focused Exam Vital Signs: Vital Signs Temp Pulse Resp BP Pulse Ox 12/30/20 16:31 97.1 F 123 H 20 159/107 H 94 L
== END 2020-12-30 17:44 | disposition home or self-care (01) ==
LOC: JD.ED 16:20
DX: S00.511A Abrasion of lip, initial encounter (principal); I10 Essential (primary) hypertension; E66.9 Obesity, unspecified; Z68.28 Body mass index [BMI] 28.0-28.9, adult; Z79.01 Long term (current) use of anticoagulants; Z79.899 Other long term (current) drug therapy; X58.XXXA Exposure to other specified factors, initial encounter
CPT/HCPCS: 12011; 99283-25

== ENCOUNTER 2020-12-31 21:04 | Emergency (ER) | payer MEDICARE, OTHER ==
[2020-12-31 21:31] VITALS: BP 164/98; PULSE 67
--- NOTE | 2020-12-31 21:50 | EDM.PDOC ---
ED HPI GENERAL MEDICAL PROBLEM - General Chief Complaint: Genitourinary Problem Stated Complaint: SWOLLEN GENITAL Time Seen by Provider: 12/31/20 21:29 Source of Information: Reports: Patient, RN Notes Reviewed History Limitations: Reports: No Limitations - History of Present Illness INITIAL COMMENTS - FREE TEXT/NARRATIVE: Patient is an 85-year-old male who presents to the ER for swollen penis and testicles. Patient states that this happened sometime ago, and the son relates that this happened roughly 6 months ago. He is typically prescribed a topical cream, and then the issue resolves itself. They try to call Dr. Hamilton today for ongoing management but he was prescribed a different cream and notes that it is not working. This was Lotrimin cream. Review of the patient's chart states that this was nystatin cream, that he had refilled back in June 2020 for management. It does appear that it should be applied 2 times a day for ongoing management. Patient states he is not having any drainage from the penis, it is somewhat uncomfortable but he is having no obvious pain. Patient is uncircumcised, and again notes that this happens from time to time and then gets better. No fevers, no chills, no cough or shortness of breath, any sort of nausea/vomiting/diarrhea. Penis Pain Score (Numeric/FACES): 4 - Related Data Allergies Allergy/AdvReac Type Severity Reaction Status Date / Time No Known Allergies Allergy Verified 12/30/20 16:32 Home Meds: Home Meds Finasteride [Proscar] 5 mg PO DAILY 10/25/13 [History] Denosumab [Prolia] 60 mg IM Q1M 08/09/15 [History] Enzalutamide [Xtandi] 160 mg PO DAILY 05/26/19 [History] Apixaban [Eliquis] 5 mg PO BID 11/17/20 [History] Tamsulosin [Tamsulosin 24 Hr] 0.4 mg PO DAILY 11/17/20 [History] Vancomycin [Vancocin 125 MG Capsule] 125 mg PO ASDIRECTED 11/17/20 [History] cephALEXin [Cephalexin] 500 mg PO Q6H 11/17/20 [History] Nystatin [Nystatin Crm] 1 applic TOP BID #1 tube 12/31/20 [Rx] Past Medical History HEENT History: Reports: Impaired Vision Cardiovascular History: Reports: Heart Valve Replacement, Hypertension, Other (See Below) Other Cardiovascular History: aortic valve replacement about 7 yrs ago, end ocarditis Respiratory History: Reports: SOB Genitourinary History: Reports: Renal Calculus Other Genitourinary History: Prostate Cancer Musculoskeletal History: Reports: Osteoarthritis Neurological History: Reports: None Psychiatric History: Reports: None Endocrine/Metabolic History: Reports: Obesity/BMI 30+ Hematologic History: Reports: None Immunologic History: Reports: None Oncologic (Cancer) History: Reports: Prostate Dermatologic History: Reports: None - Infectious Disease History Infectious Disease History: Reports: None - Past Surgical History HEENT Surgical History: Reports: Cataract Surgery Cardiovascular Surgical History: Reports: Valve Replacement Respiratory Surgical History: Reports: None GI Surgical History: Reports: Appendectomy, Cholecystectomy, Colonoscopy Male Surgical History: Reports: Prostate Biopsy Endocrine Surgical History: Reports: None Musculoskeletal Surgical History: Reports: Knee Replacement Social & Family History - Family History Family Medical History: No Pertinent Family History - Tobacco Use Tobacco Use Status *Q: Unknown Ever Used Tobacco - Caffeine Use Caffeine Use: Reports: Coffee ED ROS GENERAL - Review of Systems Review Of Systems: Comprehensive ROS is negative, except as noted in HPI. ED EXAM, RENAL/ - Physical Exam Exam: See Below Exam Limited By: No Limitations General Appearance: Alert, WD/WN, No Apparent Distress Respiratory/Chest: No Respiratory Distress, Lungs Clear, Normal Breath Sounds, No Accessory Muscle Use, Chest Non-Tender Cardiovascular: Normal Peripheral Pulses, Regular Rate, Rhythm, No Edema (Male) Exam: Scrotal Swelling (associated with penile swelling as well. His genitals are roughly 2-3x the size of normal. No pain or discharge or any other worsening concerns) Extremities: Normal Inspection, Normal Capillary Refill Neurological: Alert, Oriented, Normal Cognition, No Motor/Sensory Deficits Psychiatric: Normal Affect, Normal Mood Skin Exam: Warm, Dry, Intact, Normal Color, No Rash Course - Vital Signs Last Recorded V/S: Last Vital Signs Temp 97.2 F 12/31/20 21:24 Pulse 67 12/31/20 21:24 Resp 15 12/31/20 21:24 BP 164/98 H 12/31/20 21:24 Pulse Ox 94 L 12/31/20 21:24 - Re-Assessments/Exams Free Text/Narrative Re-Assessment/Exam: 09/27/21 21:49 Patient presents to the ER for the evaluation of his swollen genitals. I will give the patient a paper prescription with the nystatin cream written on it, I have also provided the patient with an electronic version, and I have called [facility] located on [address] and left a message to hopefully clear things up if they should have any questions. I was unable to prescribe it electronically specifically the way Dr. Hamilton had it ordered in June 2020. Some hoping that the paper prescription can help with this. Departure - Departure Time of Disposition: 21:55 Disposition: Home, Self-Care 01 Condition: Good Clinical Impression: Swelling of male genital structure - Discharge Information *PRESCRIPTION DRUG MONITORING PROGRAM REVIEWED*: No *COPY OF PRESCRIPTION DRUG MONITORING REPORT IN PATIENT NADIR: No Prescriptions: Nystatin [Nystatin Crm] 1 applic TOP BID #1 tube Referrals: Nikko Hamilton MD [Primary Care Provider] - Forms: ED Department Discharge Additional Instructions: You were evaluated in the ER today for your swollen genitals. A nystatin cream was prescribed to you, you were given a paper prescription along with electronic prescription that was sent to the [facility] located on [facility]. You will need to go there tomorrow during normal business hours to obtain this prescription and take as directed. I would highly recommend that you schedule a follow-up appoint with Dr. Hamilton, so he can reexamine you to make sure that the swelling is getting better as expected after you have given an appropriate amount of time for this medication to start working. If you should have any issues where you cannot pee, or you having any sort of drainage coming from the penis itself, or its becoming very painful do not hesitate to return to the ER for ongoing management. Sepsis Event Note (ED) - Evaluation Sepsis Screening Result: No Definite Risk - Focused Exam Vital Signs: Vital Signs Temp Pulse Resp BP Pulse Ox 12/31/20 21:24 97.2 F 67 15 164/98 H 94 L
== END 2020-12-31 22:07 | disposition home or self-care (01) ==
LOC: JD.ED 21:04
DX: N50.89 Other specified disorders of the male genital organs (principal); I10 Essential (primary) hypertension; M19.90 Unspecified osteoarthritis, unspecified site; E66.9 Obesity, unspecified; Z68.30 Body mass index [BMI] 30.0-30.9, adult; Z79.01 Long term (current) use of anticoagulants; Z79.899 Other long term (current) drug therapy
CPT/HCPCS: 99283

== ENCOUNTER 2021-01-08 20:47 | Emergency (ER) | payer MEDICARE, OTHER ==
[2021-01-08 21:20] VITALS: BP 154/96; PULSE 121
[2021-01-08] MEDS ORDERED: Dexamethasone 10 MG/ML SDV IM ONE (22:07)
--- NOTE | 2021-01-08 22:16 | EDM.PDOC ---
ED HPI GENERAL MEDICAL PROBLEM - General Chief Complaint: Genitourinary Problem Stated Complaint: SWOLLEN TESTICLES Time Seen by Provider: 01/08/21 21:21 Source of Information: Reports: Patient, RN Notes Reviewed History Limitations: Reports: No Limitations - History of Present Illness INITIAL COMMENTS - FREE TEXT/NARRATIVE: Patient is an 85-year-old male who presents to the ER for his penile and scrotal swelling. This has been ongoing for some time, and he has been seen in this ER for this as well as by Dr. Quesada and Dr. Hamilton. We have tried topical nystatin cream, and he most recently saw his provider on Thursday and was started on oral doxycycline twice daily, and they did a CT scan yesterday and will not find the results out until their point with Dr. Hamilton tomorrow. They state that they do have a urological appointment February 04 for this. Patient presents to the ER today because the scrotal swelling is so much that it is causing some chafing to his inner thighs and he cannot find a comfortable position to sleep. He still can urinate okay he states it is not painful. He states that is just a little bit bothersome when it rubs on his thighs. Scrotum Pain Score (Numeric/FACES): 6 - Related Data Allergies Allergy/AdvReac Type Severity Reaction Status Date / Time No Known Allergies Allergy Verified 01/08/21 21:49 Home Meds: Home Meds Finasteride [Proscar] 5 mg PO DAILY 10/25/13 [History] Denosumab [Prolia] 60 mg IM Q1M 08/09/15 [History] Enzalutamide [Xtandi] 160 mg PO DAILY 05/26/19 [History] Apixaban [Eliquis] 5 mg PO BID 11/17/20 [History] Tamsulosin [Tamsulosin 24 Hr] 0.4 mg PO DAILY 11/17/20 [History] Vancomycin [Vancocin 125 MG Capsule] 125 mg PO ASDIRECTED 11/17/20 [History] cephALEXin [Cephalexin] 500 mg PO Q6H 11/17/20 [History] Nystatin [Nystatin Crm] 1 applic TOP BID #1 tube 12/31/20 [Rx] Past Medical History HEENT History: Reports: Impaired Vision Cardiovascular History: Reports: Heart Valve Replacement, Hypertension, Other (See Below) Other Cardiovascular History: aortic valve replacement about 7 yrs ago, endocarditis Respiratory History: Reports: SOB Genitourinary History: Reports: Renal Calculus Other Genitourinary History: Prostate Cancer Musculoskeletal History: Reports: Osteoarthritis Neurological History: Reports: None Psychiatric History: Reports: None Endocrine/Metabolic History: Reports: Obesity/BMI 30+ Hematologic History: Reports: None Immunologic History: Reports: None Oncologic (Cancer) History: Reports: Prostate Dermatologic History: Reports: None - Infectious Disease History Infectious Disease History: Reports: None - Past Surgical History HEENT Surgical History: Reports: Cataract Surgery Cardiovascular Surgical History: Reports: Valve Replacement Respiratory Surgical History: Reports: None GI Surgical History: Reports: Appendectomy, Cholecystectomy, Colonoscopy Male Surgical History: Reports: Prostate Biopsy Endocrine Surgical History: Reports: None Musculoskeletal Surgical History: Reports: Knee Replacement Social & Family History - Family History Family Medical History: No Pertinent Family History - Tobacco Use Tobacco Use Status *Q: Never Tobacco User - Caffeine Use Caffeine Use: Reports: Coffee ED ROS GENERAL - Review of Systems Review Of Systems: Comprehensive ROS is negative, except as noted in HPI. ED EXAM, RENAL/ - Physical Exam Exam: See Below Exam Limited By: No Limitations General Appearance: Alert, WD/WN, No Apparent Distress Respiratory/Chest: No Respiratory Distress, Lungs Clear, Normal Breath Sounds, N o Accessory Muscle Use, Chest Non-Tender Cardiovascular: Normal Peripheral Pulses, Regular Rate, Rhythm, No Edema GI/Abdominal: Normal Bowel Sounds, Soft, Non-Tender, No Distention, No Mass (Male) Exam: Scrotal Swelling (With associated penile swelling, the area is roughly the size of a grapefruit. This is not tender, and I can compress this with my hands with little discomfort.). No: Scrotum Tenderness (L), Scrotum Tenderness (R), Urethral Discharge Extremities: Normal Inspection, Normal Capillary Refill Neurological: Alert, Oriented, Normal Cognition, No Motor/Sensory Deficits Psychiatric: Normal Affect, Normal Mood Skin Exam: Warm, Dry, Intact, Normal Color, No Rash Course - Vital Signs Last Recorded V/S: Last Vital Signs Temp 96.8 F L 01/08/21 21:16 Pulse 121 H 01/08/21 21:16 Resp 14 01/08/21 21:16 BP 154/96 H 01/08/21 21:16 Pulse Ox 94 L 01/08/21 21:16 - Re-Assessments/Exams Free Text/Narrative Re-Assessment/Exam: 01/08/21 22:02 Patient presents to the ER for the evaluation of his scrotal and penile swelling. This has been an ongoing problem for the gentleman. Since his urology referral is not until February 04, I did call [facility] in [place] for a urological consult at this time. I was able to talk with Dr. Snyder. He did review the CT scan, and recent findings of this patient and he believes this very well could be a lymphatic obstruction or swelling due to low albumin level. He states that there is not a lot that can be done, but it does not look like there is any sort of gas on the CT to consider for Neer's gangrene, which is reassuring. 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 He again is stating that this is likely cold edema to the scrotum. He would recommend trying to fashion a scrotal sling of sorts, and maybe try some anti-inflammatory medications to see if this helps. Since the patient is here we will try to fashion a scrotal sling the best that we are able for tonight's purposes and maybe give him some IM dexamethasone to see if this can help relieve some of the swelling. Departure - Departure Time of Disposition: 22:04 Disposition: Home, Self-Care 01 Condition: Good Clinical Impression: Swelling of male genital structure - Discharge Information *PRESCRIPTION DRUG MONITORING PROGRAM REVIEWED*: No *COPY OF PRESCRIPTION DRUG MONITORING REPORT IN PATIENT NADIR: No Instructions: Scrotal Swelling Referrals: Nikko Hamilton MD [Primary Care Provider] - Bethany Miranda MD [Ordering Only Provider] - Additional Instructions: Your evaluated in the ER today for your scrotal swelling. Your case was discussed with urologist on-call at [facility] in [place], Dr. Snyder, and he was able to review your CT results done yesterday, and it does look as if this is just cold edema of your scrotal region. This could be caused from a lymphatic obstruction, or low albumin level. He does recommend trying to fashion a sling of sorts to help elevate your scrotum to try to compress and hopefully relieve some of the swelling. You have been given a one-time injection of dexamethasone, to hopefully try to relieve some of the swelling in your scrotal area. Please continue all other medications as previously prescribed by your regular provider. Please attend your appoint with Dr. Hamilton tomorrow, and have him get in touch with [facility]. Dr. Hutchins will be made aware of your clinical course, and hopefully they can get you seen sooner rather than later. Do not hesitate to return to the ER if anything seems to change or worsen. Sepsis Event Note (ED) - Evaluation Sepsis Screening Result: No Definite Risk - Focused Exam Vital Signs: Vital Signs Temp Pulse Resp BP Pulse Ox 01/08/21 21:16 96.8 F L 121 H 14 154/96 H 94 L
== END 2021-01-08 22:56 | disposition home or self-care (01) ==
LOC: JD.ED 20:47
DX: N50.89 Other specified disorders of the male genital organs (principal); I10 Essential (primary) hypertension; E66.9 Obesity, unspecified; Z68.31 Body mass index [BMI] 31.0-31.9, adult; Z79.01 Long term (current) use of anticoagulants; Z79.899 Other long term (current) drug therapy
CPT/HCPCS: 96372; 99283; J1100

== ENCOUNTER 2021-04-18 10:13 | Emergency (ER) | payer MEDICARE, OTHER ==
[2021-04-18 11:06] VITALS: BP 122/62; PULSE 82
[2021-04-18] MEDS ORDERED: Lidocaine 1% with EPINEPHrine 1:100,000 20 ML MDV ONE ×2 (11:24→11:39)
[2021-04-18] MEDS ORDERED: Oxymetazoline 0.05% Nasal Spray 30 ML Bottle ONE (11:25)
[2021-04-18] MEDS ORDERED: Lidocaine 1% with EPINEPHrine 1:100,000 20 ML MDV INJECT ONE (11:39)
[2021-04-18] MEDS ORDERED: Oxymetazoline 0.05% Nasal Spray 30 ML Bottle NAS ONE (11:45)
== END 2021-04-18 12:40 | disposition home or self-care (01) ==
LOC: JD.ED 10:13
DX: R04.0 Epistaxis (principal); I48.91 Unspecified atrial fibrillation; I10 Essential (primary) hypertension; E66.9 Obesity, unspecified; Z68.30 Body mass index [BMI] 30.0-30.9, adult; Z79.01 Long term (current) use of anticoagulants
CPT/HCPCS: 30903; 36415; 85025; 99283; A9270; 99284

== ENCOUNTER 2021-04-19 07:53 | Inpatient (IN) | payer MEDICARE, OTHER ==
[2021-04-19 09:56] LABS: CORONAVIRUS COVID-19 NAA NEGATIVE (NEGATIVE)
[2021-04-19] MEDS ORDERED: Iopamidol 755 Mg/ML 100 ML Bottle IVPUSH ONE (12:55)
[2021-04-19] MEDS ORDERED: Sodium Chloride 0.9% 10 ML Syringe FLUSH PRN (12:55)
[2021-04-19] MEDS ORDERED: Sodium Chloride 0.9% 100 ML IV SCH (13:00)
[2021-04-19] MEDS ORDERED: Furosemide 40 MG/4 ML VIAL IVPUSH ONE (13:07)
[2021-04-19] MEDS ORDERED: Acetaminophen 325 MG Tab PO PRN (17:16)
[2021-04-19] MEDS ORDERED: Cephalexin 500 MG Cap PO SCH (21:00)
[2021-04-19] MEDS: Cephalexin 500 MG Cap PO SCH (21:02)
[2021-04-19] MEDS: Apixaban 5 MG Tab PO SCH (21:02)
[2021-04-20] MEDS: Rosuvastatin 10 MG Tab PO SCH (08:57)
[2021-04-20] MEDS: Cephalexin 500 MG Cap PO SCH ×2 (08:58→20:07)
[2021-04-20] MEDS: Metoprolol Succinate 50 MG Tab.ER PO SCH (08:59)
[2021-04-20] MEDS: Finasteride 5 MG Tab PO SCH (09:00)
[2021-04-20] MEDS: Diltiazem 120 MG Cap.CD PO SCH (09:00)
[2021-04-20] MEDS: Apixaban 5 MG Tab PO SCH ×2 (09:00→20:07)
[2021-04-20] MEDS: Tamsulosin 0.4 MG Cap.ER PO SCH (09:00)
[2021-04-20] MEDS: Furosemide 40 MG/4 ML VIAL IVPUSH SCH (13:31)
[2021-04-20] MEDS: ENZALUTAMIDE 40 MG PO SCH (17:27)
[2021-04-20] MEDS: Vancomycin 125 MG Cap PO SCH (20:07)
[2021-04-21] MEDS: Furosemide 40 MG/4 ML VIAL IVPUSH SCH ×2 (08:27→14:55)
[2021-04-21] MEDS: Apixaban 5 MG Tab PO SCH ×2 (08:27→20:50)
[2021-04-21] MEDS: Metoprolol Succinate 50 MG Tab.ER PO SCH (08:28)
[2021-04-21] MEDS: Diltiazem 120 MG Cap.CD PO SCH (08:28)
[2021-04-21] MEDS: Vancomycin 125 MG Cap PO SCH ×4 (08:29→20:50)
[2021-04-21] MEDS: Cephalexin 500 MG Cap PO SCH ×2 (08:29→20:50)
[2021-04-21] MEDS: Finasteride 5 MG Tab PO SCH (08:30)
[2021-04-21] MEDS: Tamsulosin 0.4 MG Cap.ER PO SCH (08:30)
[2021-04-21] MEDS: Rosuvastatin 10 MG Tab PO SCH (08:32)
[2021-04-21] MEDS: ENZALUTAMIDE 40 MG PO SCH (08:34)
[2021-04-21] MEDS: Potassium Chloride 20 MEQ Tab.ER PO SCH ×2 (12:29→20:50)
[2021-04-21] MEDS ORDERED: Furosemide 40 MG/4 ML VIAL IVPUSH SCH ×2 (13:45→15:00)
[2021-04-22] MEDS: Furosemide 40 MG/4 ML VIAL IVPUSH SCH ×2 (06:42→13:58)
[2021-04-22] MEDS: Tamsulosin 0.4 MG Cap.ER PO SCH (10:28)
[2021-04-22] MEDS: Apixaban 5 MG Tab PO SCH ×2 (10:28→21:16)
[2021-04-22] MEDS: Finasteride 5 MG Tab PO SCH (10:28)
[2021-04-22] MEDS: Vancomycin 125 MG Cap PO SCH ×4 (10:28→21:16)
[2021-04-22] MEDS: Metoprolol Succinate 50 MG Tab.ER PO SCH (10:29)
[2021-04-22] MEDS: Diltiazem 120 MG Cap.CD PO SCH (10:29)
[2021-04-22] MEDS: Rosuvastatin 10 MG Tab PO SCH (10:30)
[2021-04-22] MEDS: Cephalexin 500 MG Cap PO SCH ×3 (10:30→21:16)
[2021-04-22] MEDS: ENZALUTAMIDE 40 MG PO SCH (10:32)
[2021-04-22] MEDS: Sacubitril/Valsartan 1 EACH Tablet PO SCH (21:16)
[2021-04-23] MEDS: Furosemide 40 MG/4 ML VIAL IVPUSH SCH ×2 (06:10→13:05)
[2021-04-23] MEDS: Cephalexin 500 MG Cap PO SCH ×2 (08:28→14:53)
[2021-04-23] MEDS: Metoprolol Succinate 50 MG Tab.ER PO SCH (08:29)
[2021-04-23] MEDS: Tamsulosin 0.4 MG Cap.ER PO SCH (08:30)
[2021-04-23] MEDS: Vancomycin 125 MG Cap PO SCH ×3 (08:30→16:36)
[2021-04-23] MEDS: Apixaban 5 MG Tab PO SCH (08:31)
[2021-04-23] MEDS: Rosuvastatin 10 MG Tab PO SCH (08:32)
[2021-04-23] MEDS: Sacubitril/Valsartan 1 EACH Tablet PO SCH (08:33)
[2021-04-23] MEDS: Finasteride 5 MG Tab PO SCH (08:33)
[2021-04-23] MEDS: ENZALUTAMIDE 40 MG PO SCH (08:36)
[2021-04-23] MEDS: Potassium Chloride 20 MEQ Tab.ER PO SCH (14:53)
[2021-04-24] MEDS: Potassium Chloride 20 MEQ Tab.ER PO SCH (01:43)
[2021-04-24] MEDS: Cephalexin 500 MG Cap PO SCH ×4 (01:43→19:22)
[2021-04-24] MEDS: Sacubitril/Valsartan 1 EACH Tablet PO SCH ×3 (01:43→19:22)
[2021-04-24] MEDS: Vancomycin 125 MG Cap PO SCH ×5 (01:43→19:22)
[2021-04-24] MEDS: Apixaban 5 MG Tab PO SCH ×3 (01:43→19:22)
[2021-04-24] MEDS ORDERED: Metoprolol Tartrate 5 MG/5 ML SDV IVPUSH ONE (05:40)
[2021-04-24] MEDS: Furosemide 40 MG/4 ML VIAL IVPUSH SCH ×2 (06:50→14:28)
[2021-04-24] MEDS: Rosuvastatin 10 MG Tab PO SCH (08:42)
[2021-04-24] MEDS: Metoprolol Succinate 50 MG Tab.ER PO SCH (08:45)
[2021-04-24] MEDS: Tamsulosin 0.4 MG Cap.ER PO SCH (08:47)
[2021-04-24] MEDS: Finasteride 5 MG Tab PO SCH (08:48)
[2021-04-24] MEDS: ENZALUTAMIDE 40 MG PO SCH (08:49)
[2021-04-24] MEDS ORDERED: Metoprolol Tartrate 5 MG in Sodium Chloride 0.9% 50 ML IV ONE (08:50)
[2021-04-24] MEDS ORDERED: Metoprolol Tartrate 5 MG/5 ML SDV IV ONE (09:00)
[2021-04-24] MEDS: Spironolactone 25 MG Tab PO SCH (12:18)
[2021-04-24] MEDS ORDERED: Metoprolol Tartrate 5 MG/5 ML SDV IVPUSH PRN (16:02)
[2021-04-25] MEDS: Cephalexin 500 MG Cap PO SCH ×3 (00:05→14:07)
[2021-04-25] MEDS: Apixaban 5 MG Tab PO SCH ×2 (00:05→09:15)
[2021-04-25] MEDS: Sacubitril/Valsartan 1 EACH Tablet PO SCH ×2 (00:05→09:19)
[2021-04-25] MEDS: Vancomycin 125 MG Cap PO SCH ×3 (00:05→12:05)
[2021-04-25] MEDS: Furosemide 40 MG/4 ML VIAL IVPUSH SCH (06:23)
[2021-04-25] MEDS: ENZALUTAMIDE 40 MG PO SCH (09:12)
[2021-04-25] MEDS: Finasteride 5 MG Tab PO SCH (09:15)
[2021-04-25] MEDS: Tamsulosin 0.4 MG Cap.ER PO SCH (09:15)
[2021-04-25] MEDS: Rosuvastatin 10 MG Tab PO SCH (09:16)
[2021-04-25] MEDS: Spironolactone 25 MG Tab PO SCH (09:18)
[2021-04-25] MEDS: Metoprolol Succinate 50 MG Tab.ER PO SCH (09:19)
[2021-04-25 11:29] VITALS: BP 105/89; PULSE 83
[2021-04-25] MEDS ORDERED: Furosemide 40 MG Tab PO SCH (14:00)
== END 2021-04-25 14:20 | disposition home or self-care (01) | DRG 291 ==
LOC: JD.ED 07:53 → JD.MS 15:35
PROVIDERS: ADMIT Internal Medicine; ATTEND Internal Medicine
DX: I50.9 Heart failure, unspecified (principal); R77.8 Other specified abnormalities of plasma proteins; W06.XXXA Fall from bed, initial encounter; I13.0 Hypertensive heart and chronic kidney disease with heart failure and stage 1 through stage 4 chronic kidney disease, or unspecified chronic kidney disease; J96.01 Acute respiratory failure with hypoxia; I50.21 Acute systolic (congestive) heart failure; M62.82 Rhabdomyolysis; I10 Essential (primary) hypertension; I38 Endocarditis, valve unspecified; N17.9 Acute kidney failure, unspecified; A04.71 Enterocolitis due to Clostridium difficile, recurrent; Z20.822 Contact with and (suspected) exposure to COVID-19; C61 Malignant neoplasm of prostate; R04.0 Epistaxis; E78.5 Hyperlipidemia, unspecified; I48.91 Unspecified atrial fibrillation; I36.1 Nonrheumatic tricuspid (valve) insufficiency; N40.0 Benign prostatic hyperplasia without lower urinary tract symptoms; E66.9 Obesity, unspecified; Z96.653 Presence of artificial knee joint, bilateral; N18.9 Chronic kidney disease, unspecified; E87.6 Hypokalemia; E78.00 Pure hypercholesterolemia, unspecified; M19.90 Unspecified osteoarthritis, unspecified site; H54.7 Unspecified visual loss; Z79.01 Long term (current) use of anticoagulants; Z95.2 Presence of prosthetic heart valve; Z79.899 Other long term (current) drug therapy; Z87.442 Personal history of urinary calculi; Z90.49 Acquired absence of other specified parts of digestive tract; Z95.4 Presence of other heart-valve replacement
CPT/HCPCS: 0240U; 36415; 36600; 70450; 71045; 71260; 80048; 80053; 80061; 81001; 82550; 82803; 83605; 83735; 83874; 83880; 84484; 85007; 85025; 85027; 86140; 87040; 87086; 93005; 93306; 94761; 96374; 97110; 97116; 97161; 97530; 99285; A9270-GY; J1940; J3490; Q9967

== ENCOUNTER 2021-05-16 02:55 | Emergency (ER) | payer MEDICARE, OTHER ==
[2021-05-16 03:09] VITALS: BP 104/75; PULSE 108
== END 2021-05-16 05:30 | disposition home or self-care (01) ==
LOC: JD.ED 02:55
DX: R19.7 Diarrhea, unspecified (principal); E78.00 Pure hypercholesterolemia, unspecified; I10 Essential (primary) hypertension; E66.9 Obesity, unspecified; Z68.27 Body mass index [BMI] 27.0-27.9, adult; Z79.01 Long term (current) use of anticoagulants; Z79.899 Other long term (current) drug therapy; Z87.891 Personal history of nicotine dependence
CPT/HCPCS: 36415; 80053; 83735; 85025; 99284

== ENCOUNTER 2021-07-19 22:28 | Emergency (ER) | payer OTHER ==
[2021-07-19 22:38] VITALS: BP 118/68; PULSE 76
== END 2021-07-20 01:45 | disposition home or self-care (01) ==
LOC: JD.ED 22:28
DX: M70.62 Trochanteric bursitis, left hip (principal); I48.91 Unspecified atrial fibrillation; E78.00 Pure hypercholesterolemia, unspecified; I10 Essential (primary) hypertension; N40.0 Benign prostatic hyperplasia without lower urinary tract symptoms; M19.90 Unspecified osteoarthritis, unspecified site; Z87.891 Personal history of nicotine dependence; Z79.01 Long term (current) use of anticoagulants; Z79.899 Other long term (current) drug therapy
CPT/HCPCS: 99283

== ENCOUNTER 2021-08-11 07:23 | Emergency (ER) | payer OTHER ==
[2021-08-11 07:37] VITALS: BP 137/69; PULSE 72
[2021-08-11] MEDS ORDERED: Phenylephrine 0.5% Nasal Spray 15 ML Bot NASLF ONE (07:49)
== END 2021-08-11 09:08 | disposition home or self-care (01) ==
LOC: JD.ED 07:23
DX: R04.0 Epistaxis (principal); I48.91 Unspecified atrial fibrillation; I11.0 Hypertensive heart disease with heart failure; I50.9 Heart failure, unspecified; N40.0 Benign prostatic hyperplasia without lower urinary tract symptoms; M19.90 Unspecified osteoarthritis, unspecified site; E66.9 Obesity, unspecified; Z68.27 Body mass index [BMI] 27.0-27.9, adult; Z79.01 Long term (current) use of anticoagulants; Z79.899 Other long term (current) drug therapy
CPT/HCPCS: 30901; 99283; A9270

== ENCOUNTER 2021-08-15 09:35 | Inpatient (IN) | payer MEDICARE, OTHER ==
[2021-08-15] MEDS: Sodium Chloride 0.9% 10 ML Syringe FLUSH PRN (10:07)
[2021-08-15] MEDS ORDERED: Lactated Ringers 1,000 ML IV ONE (10:21)
[2021-08-15] MEDS ORDERED: Ondansetron 4 MG/2 ML SDV IV PRN (13:33)
[2021-08-15] MEDS ORDERED: Acetaminophen 325 MG Tab PO PRN (14:07)
[2021-08-15] MEDS ORDERED: LEUPROLIDE ACETATE 7.5 MG INJECT SCH (14:15)
[2021-08-15] MEDS ORDERED: Sodium Chloride 0.9% 1,000 ML IV SCH (14:15)
[2021-08-15] MEDS ORDERED: cefTRIAXone 2 GM in Sodium Chloride 0.9% 100 ML IV SCH (14:30)
[2021-08-15] MEDS ORDERED: Cephalexin 500 MG Cap PO SCH (15:00)
[2021-08-15] MEDS ORDERED: Levofloxacin/Dextrose 5%-Water 750 MG in Premix Bag 1 BAG IV ONE (16:00)
[2021-08-15] MEDS: predniSONE 5 MG Tab PO SCH (20:14)
[2021-08-15] MEDS: Apixaban 2.5 MG Tab PO SCH (20:14)
[2021-08-15] MEDS: Metoprolol Succinate 50 MG Tab.ER PO SCH (20:15)
[2021-08-15] MEDS: Cephalexin 500 MG Cap PO SCH (20:15)
[2021-08-15] MEDS: Saccharomyces Boulardii (Probiotic) 250 MG Cap PO SCH (20:15)
[2021-08-16] MEDS: traMADol 50 MG Tab PO PRN ×2 (00:31→21:48)
[2021-08-16] MEDS: Metoprolol Succinate 50 MG Tab.ER PO SCH ×2 (08:09→20:10)
[2021-08-16] MEDS: Vancomycin 125 MG Cap PO SCH (08:09)
[2021-08-16] MEDS: Cephalexin 500 MG Cap PO SCH ×3 (08:09→20:10)
[2021-08-16] MEDS: predniSONE 5 MG Tab PO SCH ×2 (08:09→20:10)
[2021-08-16] MEDS: Finasteride 5 MG Tab PO SCH (08:10)
[2021-08-16] MEDS: Apixaban 2.5 MG Tab PO SCH ×2 (08:10→20:10)
[2021-08-16] MEDS: Tamsulosin 0.4 MG Cap.ER PO SCH (08:10)
[2021-08-16] MEDS: ABIRATERONE ACETATE 500 MG PO SCH (09:51)
[2021-08-16] MEDS ORDERED: Lactated Ringers 1,000 ML IV SCH (11:30)
[2021-08-16] MEDS: Saccharomyces Boulardii (Probiotic) 250 MG Cap PO SCH (20:10)
[2021-08-17] MEDS: Apixaban 2.5 MG Tab PO SCH ×2 (07:59→20:07)
[2021-08-17] MEDS: Metoprolol Succinate 50 MG Tab.ER PO SCH ×2 (07:59→20:07)
[2021-08-17] MEDS: predniSONE 5 MG Tab PO SCH ×2 (07:59→20:07)
[2021-08-17] MEDS: Tamsulosin 0.4 MG Cap.ER PO SCH (07:59)
[2021-08-17] MEDS: Cephalexin 500 MG Cap PO SCH ×3 (07:59→20:07)
[2021-08-17] MEDS: Finasteride 5 MG Tab PO SCH (07:59)
[2021-08-17] MEDS: ABIRATERONE ACETATE 500 MG PO SCH (08:00)
[2021-08-17] MEDS: Levofloxacin/Dextrose 5%-Water 750 MG in Premix Bag 1 BAG IV SCH (14:59)
[2021-08-17] MEDS: Saccharomyces Boulardii (Probiotic) 250 MG Cap PO SCH (20:07)
[2021-08-17] MEDS: traMADol 50 MG Tab PO PRN (20:13)
[2021-08-18] MEDS: Tamsulosin 0.4 MG Cap.ER PO SCH (08:04)
[2021-08-18] MEDS: Apixaban 2.5 MG Tab PO SCH ×2 (08:04→20:09)
[2021-08-18] MEDS: ABIRATERONE ACETATE 500 MG PO SCH (08:04)
[2021-08-18] MEDS: Metoprolol Succinate 50 MG Tab.ER PO SCH ×2 (08:04→20:09)
[2021-08-18] MEDS: Finasteride 5 MG Tab PO SCH (08:04)
[2021-08-18] MEDS: predniSONE 5 MG Tab PO SCH ×2 (08:04→20:09)
[2021-08-18] MEDS: Vancomycin 125 MG Cap PO SCH (08:04)
[2021-08-18] MEDS: Cephalexin 500 MG Cap PO SCH ×3 (08:04→20:09)
[2021-08-18] MEDS: Saccharomyces Boulardii (Probiotic) 250 MG Cap PO SCH (20:09)
[2021-08-18] MEDS: Sodium Chloride 0.9% 10 ML Syringe FLUSH PRN (20:14)
[2021-08-18] MEDS: traMADol 50 MG Tab PO PRN (20:15)
[2021-08-19] MEDS: Metoprolol Succinate 50 MG Tab.ER PO SCH ×2 (09:11→20:37)
[2021-08-19] MEDS: Tamsulosin 0.4 MG Cap.ER PO SCH (09:11)
[2021-08-19] MEDS: Cephalexin 500 MG Cap PO SCH ×3 (09:19→20:40)
[2021-08-19] MEDS: Apixaban 2.5 MG Tab PO SCH ×2 (09:20→20:40)
[2021-08-19] MEDS: Finasteride 5 MG Tab PO SCH (09:20)
[2021-08-19] MEDS: predniSONE 5 MG Tab PO SCH ×2 (09:20→20:40)
[2021-08-19] MEDS: ABIRATERONE ACETATE 250 MG PO SCH (09:43)
[2021-08-19] MEDS: Acetaminophen 325 MG Tab PO PRN (13:30)
[2021-08-19] MEDS ORDERED: Levofloxacin/Dextrose 5%-Water 150 ML IV ONE (16:32)
[2021-08-19] MEDS: Levofloxacin/Dextrose 5%-Water 750 MG in Premix Bag 1 BAG IV SCH (16:35)
[2021-08-19] MEDS: Saccharomyces Boulardii (Probiotic) 250 MG Cap PO SCH (20:40)
[2021-08-20] MEDS: Metoprolol Succinate 50 MG Tab.ER PO SCH (08:52)
[2021-08-20] MEDS: Cephalexin 500 MG Cap PO SCH (08:53)
[2021-08-20] MEDS: predniSONE 5 MG Tab PO SCH (08:53)
[2021-08-20] MEDS: Finasteride 5 MG Tab PO SCH (08:53)
[2021-08-20] MEDS: Apixaban 2.5 MG Tab PO SCH (08:53)
[2021-08-20 08:54] VITALS: PULSE 81
[2021-08-20] MEDS: Vancomycin 125 MG Cap PO SCH (08:54)
[2021-08-20] MEDS: Tamsulosin 0.4 MG Cap.ER PO SCH (08:54)
[2021-08-20] MEDS ORDERED: ABIRATERONE ACETATE 500 MG PO SCH (09:00)
[2021-08-20] MEDS: ABIRATERONE ACETATE 250 MG PO SCH (09:47)
[2021-08-20] MEDS ORDERED: Magnesium Hydroxide 400 MG/5 ML Susp 30 ML Cup PO PRN (10:14)
[2021-08-20] MEDS: Acetaminophen 325 MG Tab PO PRN (10:53)
[2021-08-20 15:27] VITALS: BP 138/79
[2021-08-21] MEDS ORDERED: Levofloxacin 750 MG Tab PO SCH (16:00)
== END 2021-08-20 15:16 | disposition home health service (06) | DRG 683 ==
LOC: JD.ED 09:35 → JD.ICU 12:40
PROVIDERS: ADMIT Hospitalist; ATTEND Hospitalist
DX: I48.91 Unspecified atrial fibrillation (principal); R53.1 Weakness; N17.9 Acute kidney failure, unspecified; I48.20 Chronic atrial fibrillation, unspecified; D84.9 Immunodeficiency, unspecified; I13.0 Hypertensive heart and chronic kidney disease with heart failure and stage 1 through stage 4 chronic kidney disease, or unspecified chronic kidney disease; I38 Endocarditis, valve unspecified; D64.9 Anemia, unspecified; H54.7 Unspecified visual loss; H91.90 Unspecified hearing loss, unspecified ear; E78.00 Pure hypercholesterolemia, unspecified; Z95.2 Presence of prosthetic heart valve; N30.01 Acute cystitis with hematuria; R62.7 Adult failure to thrive; N18.4 Chronic kidney disease, stage 4 (severe); Z66 Do not resuscitate; E78.5 Hyperlipidemia, unspecified; Z79.01 Long term (current) use of anticoagulants; Z79.52 Long term (current) use of systemic steroids; Z20.822 Contact with and (suspected) exposure to COVID-19; Z79.2 Long term (current) use of antibiotics; R26.2 Difficulty in walking, not elsewhere classified; M19.90 Unspecified osteoarthritis, unspecified site; C61 Malignant neoplasm of prostate; N40.0 Benign prostatic hyperplasia without lower urinary tract symptoms; B96.5 Pseudomonas (aeruginosa) (mallei) (pseudomallei) as the cause of diseases classified elsewhere; I50.9 Heart failure, unspecified; E88.09 Other disorders of plasma-protein metabolism, not elsewhere classified; D63.1 Anemia in chronic kidney disease; Z96.653 Presence of artificial knee joint, bilateral; Z79.4 Long term (current) use of insulin; Z95.3 Presence of xenogenic heart valve; Z79.899 Other long term (current) drug therapy; Z87.891 Personal history of nicotine dependence; Z90.49 Acquired absence of other specified parts of digestive tract; Z68.25 Body mass index [BMI] 25.0-25.9, adult
CPT/HCPCS: 36415; 71045; 80053; 81001; 83880; 84145; 84484; 85025; 86140; 87086; 87088 ×2; 87186 ×2; 93005; 96360; 99285; J3490; J7120; U0002; 80048; 82272; 83605; 83735; 85014; 85018; 87040; 93010; 97110-GP; 97116-GP; 97162-GP; A9270-GY; J0696; J1956; J7030; J7512

== ENCOUNTER 2021-10-01 10:41 | Emergency (ER) | payer MEDICARE ==
[2021-10-01 10:58] VITALS: BP 118/70; PULSE 79
[2021-10-01] MEDS ORDERED: Sodium Chloride 0.9% 10 ML Syringe FLUSH PRN (11:13)
[2021-10-01] MEDS ORDERED: Furosemide 40 MG/4 ML VIAL IVPUSH ONE (13:50)
== END 2021-10-01 14:18 | disposition home or self-care (01) ==
LOC: JD.ED 10:41
DX: R53.1 Weakness (principal); R79.0 Abnormal level of blood mineral; I11.0 Hypertensive heart disease with heart failure; I50.9 Heart failure, unspecified; E78.00 Pure hypercholesterolemia, unspecified; E66.9 Obesity, unspecified; Z68.26 Body mass index [BMI] 26.0-26.9, adult; Z87.891 Personal history of nicotine dependence
CPT/HCPCS: 36415; 70450; 71045; 80053; 82947; 83735; 83880; 84484; 85007; 85027; 93005; 96374; 99285; G0103; J1940; J3490; 99282

== ENCOUNTER 2021-10-05 10:10 | Emergency (ER) | payer MEDICARE ==
[2021-10-05] MEDS ORDERED: cefTRIAXone 2 GM in Sodium Chloride 0.9% 100 ML IV ONE (13:01)
[2021-10-05] MEDS ORDERED: Levofloxacin/Dextrose 5%-Water 750 MG in Premix Bag 1 BAG IV ONE (13:09)
[2021-10-05 16:21] VITALS: BP 118/67; PULSE 94
== END 2021-10-05 16:10 | disposition home or self-care (01) ==
LOC: JD.ED 10:10
DX: N40.1 Benign prostatic hyperplasia with lower urinary tract symptoms (principal); R33.8 Other retention of urine; N39.0 Urinary tract infection, site not specified; R53.1 Weakness; R41.82 Altered mental status, unspecified; E66.9 Obesity, unspecified; I11.0 Hypertensive heart disease with heart failure; I50.9 Heart failure, unspecified; E78.00 Pure hypercholesterolemia, unspecified; Z68.26 Body mass index [BMI] 26.0-26.9, adult; Z79.899 Other long term (current) drug therapy
CPT/HCPCS: 36415; 51798; 70450; 71045; 74176; 80053; 81001; 82947; 83735; 83880; 85025; 85610; 85652; 85730; 86140; 87086; 87088; 87186; 93005; 96365; 99285; J1956; 93010

== ENCOUNTER 2021-10-06 07:55 | Inpatient (IN) | payer MEDICARE, OTHER ==
[2021-10-06] MEDS ORDERED: Sodium Chloride 0.9% 10 ML Syringe FLUSH PRN (08:10)
[2021-10-06] MEDS ORDERED: cefTRIAXone 2 GM in Sodium Chloride 0.9% 100 ML IV ONE (09:37)
[2021-10-06] MEDS ORDERED: traMADol 50 MG Tab PO PRN (13:26)
[2021-10-06] MEDS ORDERED: OXYMETAZOLINE HCL NASBOTH PRN (13:26)
[2021-10-06] MEDS ORDERED: DENOSUMAB 120 MG/1.7 ML SUBCUT SCH (13:30)
[2021-10-06] MEDS ORDERED: LEUPROLIDE ACETATE 7.5 MG INJECT SCH (13:30)
[2021-10-06] MEDS ORDERED: Levofloxacin/Dextrose 5%-Water 500 MG in Premix Bag 1 BAG IV ONE (18:00)
[2021-10-06] MEDS ORDERED: Multivitamins with Iron/Calcium/Folic Acid/Minerals Tab PO SCH (21:00)
[2021-10-06] MEDS: Sacubitril/Valsartan 1 EACH Tablet PO SCH (21:01)
[2021-10-06] MEDS: Sodium Chloride 0.65% Nasal Spray 45 ML Bottle NAS SCH (21:02)
[2021-10-06] MEDS: Apixaban 2.5 MG Tab PO SCH (21:02)
[2021-10-06] MEDS: predniSONE 5 MG Tab PO SCH (21:02)
[2021-10-06] MEDS ORDERED: Oxymetazoline 0.05% Nasal Spray 30 ML Bottle NAS PRN (21:34)
[2021-10-06] MEDS: Multivitamin Tab PO SCH (21:36)
[2021-10-07] MEDS: Metoprolol Succinate 50 MG Tab.ER PO SCH (08:26)
[2021-10-07] MEDS: Apixaban 2.5 MG Tab PO SCH ×2 (08:26→21:57)
[2021-10-07] MEDS: Finasteride 5 MG Tab PO SCH (08:27)
[2021-10-07] MEDS: Rosuvastatin 10 MG Tab PO SCH (08:27)
[2021-10-07] MEDS: Tamsulosin 0.4 MG Cap.ER PO SCH (08:27)
[2021-10-07] MEDS: Spironolactone 25 MG Tab PO SCH (08:27)
[2021-10-07] MEDS: Vancomycin 125 MG Cap PO SCH (08:27)
[2021-10-07] MEDS: Sacubitril/Valsartan 1 EACH Tablet PO SCH ×2 (08:27→21:56)
[2021-10-07] MEDS: predniSONE 5 MG Tab PO SCH ×2 (08:27→21:58)
[2021-10-07] MEDS: Sodium Chloride 0.65% Nasal Spray 45 ML Bottle NAS SCH ×2 (08:32→22:05)
[2021-10-07] MEDS ORDERED: [UNRECOGNIZED DRUG - OTHER] PO SCH (09:00)
[2021-10-07] MEDS ORDERED: ABIRATERONE ACETATE 250 MG PO SCH (09:00)
[2021-10-07] MEDS ORDERED: CALCIUM CARBONATE PO SCH (09:00)
[2021-10-07] MEDS ORDERED: VITAMIN D3 PO SCH (09:00)
[2021-10-07] MEDS ORDERED: Magnesium Sulfate/Water 2 GM in Premix Bag 1 BAG IV ONE (09:30)
[2021-10-07] MEDS: Furosemide 20 MG/2 ML VIAL IVPUSH SCH (10:01)
[2021-10-07] MEDS: Cholestyramine/Sucrose Powder 4 GM Packet PO SCH (11:23)
[2021-10-07] MEDS: ABIRATERONE ACETATE 250 MG PO SCH (11:24)
[2021-10-07] MEDS: Levofloxacin/Dextrose 5%-Water 50 ML IV SCH (17:07)
[2021-10-07] MEDS ORDERED: Multivitamin Tab PO SCH (21:00)
[2021-10-07] MEDS: Multivitamin Tab PO SCH (21:58)
[2021-10-07] MEDS ORDERED: Bisacodyl 10 MG Supp RECTAL ONE (22:06)
[2021-10-08] MEDS: Metoprolol Succinate 50 MG Tab.ER PO SCH (09:15)
[2021-10-08] MEDS: Sacubitril/Valsartan 1 EACH Tablet PO SCH ×2 (10:02→20:59)
[2021-10-08] MEDS: Spironolactone 25 MG Tab PO SCH (10:03)
[2021-10-08] MEDS: Apixaban 2.5 MG Tab PO SCH ×2 (10:29→20:34)
[2021-10-08] MEDS: Rosuvastatin 10 MG Tab PO SCH (10:29)
[2021-10-08] MEDS: Sodium Chloride 0.65% Nasal Spray 45 ML Bottle NAS SCH ×2 (10:30→20:35)
[2021-10-08] MEDS: Finasteride 5 MG Tab PO SCH (10:30)
[2021-10-08] MEDS: Tamsulosin 0.4 MG Cap.ER PO SCH (10:30)
[2021-10-08] MEDS: predniSONE 5 MG Tab PO SCH ×2 (10:30→20:34)
[2021-10-08] MEDS: Furosemide 20 MG/2 ML VIAL IVPUSH SCH (10:30)
[2021-10-08] MEDS: Cholestyramine/Sucrose Powder 4 GM Packet PO SCH (11:51)
[2021-10-08] MEDS: ABIRATERONE ACETATE 250 MG PO SCH (12:01)
[2021-10-08] MEDS: Levofloxacin/Dextrose 5%-Water 50 ML IV SCH (18:02)
[2021-10-08] MEDS: Multivitamin Tab PO SCH (20:34)
[2021-10-09] MEDS: Furosemide 20 MG/2 ML VIAL IVPUSH SCH (08:50)
[2021-10-09] MEDS: Rosuvastatin 10 MG Tab PO SCH (08:51)
[2021-10-09] MEDS: Vancomycin 125 MG Cap PO SCH (08:51)
[2021-10-09] MEDS: Tamsulosin 0.4 MG Cap.ER PO SCH (08:51)
[2021-10-09] MEDS: Sacubitril/Valsartan 1 EACH Tablet PO SCH ×2 (08:51→20:32)
[2021-10-09] MEDS: Spironolactone 25 MG Tab PO SCH (08:51)
[2021-10-09] MEDS: Apixaban 2.5 MG Tab PO SCH ×2 (08:52→20:32)
[2021-10-09] MEDS: Metoprolol Succinate 50 MG Tab.ER PO SCH (08:52)
[2021-10-09] MEDS: Sodium Chloride 0.65% Nasal Spray 45 ML Bottle NAS SCH ×2 (08:52→20:33)
[2021-10-09] MEDS: predniSONE 5 MG Tab PO SCH ×2 (08:52→20:32)
[2021-10-09] MEDS: Finasteride 5 MG Tab PO SCH (08:52)
[2021-10-09] MEDS: ABIRATERONE ACETATE 250 MG PO SCH (11:11)
[2021-10-09] MEDS: Cholestyramine/Sucrose Powder 4 GM Packet PO SCH (11:56)
[2021-10-09] MEDS: Levofloxacin/Dextrose 5%-Water 50 ML IV SCH (17:20)
[2021-10-09] MEDS: Multivitamin Tab PO SCH (20:32)
[2021-10-09] MEDS: Acetaminophen 325 MG Tab PO PRN (23:48)
[2021-10-10] MEDS: Sodium Chloride 0.65% Nasal Spray 45 ML Bottle NAS SCH ×2 (08:58→20:52)
[2021-10-10] MEDS: Furosemide 20 MG/2 ML VIAL IVPUSH SCH (08:58)
[2021-10-10] MEDS: Sacubitril/Valsartan 1 EACH Tablet PO SCH ×2 (08:58→20:48)
[2021-10-10] MEDS: Tamsulosin 0.4 MG Cap.ER PO SCH (08:59)
[2021-10-10] MEDS: Rosuvastatin 10 MG Tab PO SCH (08:59)
[2021-10-10] MEDS: Spironolactone 25 MG Tab PO SCH (08:59)
[2021-10-10] MEDS: predniSONE 5 MG Tab PO SCH ×2 (08:59→20:48)
[2021-10-10] MEDS: Metoprolol Succinate 50 MG Tab.ER PO SCH (08:59)
[2021-10-10] MEDS: Apixaban 2.5 MG Tab PO SCH ×2 (08:59→20:52)
[2021-10-10] MEDS: Finasteride 5 MG Tab PO SCH (08:59)
[2021-10-10] MEDS: ABIRATERONE ACETATE 250 MG PO SCH (11:30)
[2021-10-10] MEDS: Cholestyramine/Sucrose Powder 4 GM Packet PO SCH (11:30)
[2021-10-10] MEDS: Levofloxacin/Dextrose 5%-Water 50 ML IV SCH (17:33)
[2021-10-10] MEDS: Multivitamin Tab PO SCH (20:48)
[2021-10-11] MEDS: Vancomycin 125 MG Cap PO SCH (08:22)
[2021-10-11] MEDS: Spironolactone 25 MG Tab PO SCH (08:22)
[2021-10-11] MEDS: Tamsulosin 0.4 MG Cap.ER PO SCH (08:23)
[2021-10-11] MEDS: Rosuvastatin 10 MG Tab PO SCH (08:23)
[2021-10-11] MEDS: predniSONE 5 MG Tab PO SCH (08:24)
[2021-10-11] MEDS: Apixaban 2.5 MG Tab PO SCH ×2 (08:25→20:56)
[2021-10-11] MEDS: Metoprolol Succinate 50 MG Tab.ER PO SCH (08:25)
[2021-10-11] MEDS: Furosemide 20 MG/2 ML VIAL IVPUSH SCH (08:29)
[2021-10-11] MEDS: Sacubitril/Valsartan 1 EACH Tablet PO SCH (08:29)
[2021-10-11] MEDS: Finasteride 5 MG Tab PO SCH (08:29)
[2021-10-11] MEDS: Sodium Chloride 0.65% Nasal Spray 45 ML Bottle NAS SCH ×2 (08:42→20:55)
[2021-10-11] MEDS: Cholestyramine/Sucrose Powder 4 GM Packet PO SCH (11:35)
[2021-10-11] MEDS: ABIRATERONE ACETATE 250 MG PO SCH (11:36)
[2021-10-11] MEDS: Fluconazole 150 MG Tab PO SCH (12:42)
[2021-10-11] MEDS: Nystatin Crm 30 GM Tube TOP SCH ×2 (16:06→20:55)
[2021-10-11] MEDS: Levofloxacin/Dextrose 5%-Water 50 ML IV SCH (17:14)
[2021-10-11] MEDS: Multivitamin Tab PO SCH (20:56)
[2021-10-11] MEDS: Acetaminophen 325 MG Tab PO PRN (20:56)
[2021-10-12] MEDS: Nystatin Crm 30 GM Tube TOP SCH ×3 (08:34→21:30)
[2021-10-12] MEDS: Sodium Chloride 0.65% Nasal Spray 45 ML Bottle NAS SCH ×2 (08:34→21:31)
[2021-10-12] MEDS: Finasteride 5 MG Tab PO SCH (08:35)
[2021-10-12] MEDS: Apixaban 2.5 MG Tab PO SCH ×2 (08:35→21:30)
[2021-10-12] MEDS: Furosemide 20 MG Tab PO SCH (08:36)
[2021-10-12] MEDS: Spironolactone 25 MG Tab PO SCH (08:36)
[2021-10-12] MEDS: Tamsulosin 0.4 MG Cap.ER PO SCH (08:36)
[2021-10-12] MEDS: Metoprolol Succinate 50 MG Tab.ER PO SCH (08:41)
[2021-10-12] MEDS: Acetaminophen 325 MG Tab PO PRN ×2 (09:57→21:29)
[2021-10-12] MEDS: Cholestyramine/Sucrose Powder 4 GM Packet PO SCH (10:00)
[2021-10-12] MEDS: Midodrine 5 MG Tab PO SCH (15:55)
[2021-10-12] MEDS: Levofloxacin/Dextrose 5%-Water 50 ML IV SCH (18:37)
[2021-10-12] MEDS: Multivitamin Tab PO SCH (21:30)
[2021-10-13] MEDS: Vancomycin 125 MG Cap PO SCH (10:20)
[2021-10-13] MEDS: Spironolactone 25 MG Tab PO SCH (10:21)
[2021-10-13] MEDS: Furosemide 20 MG Tab PO SCH (10:21)
[2021-10-13] MEDS: Tamsulosin 0.4 MG Cap.ER PO SCH (10:21)
[2021-10-13] MEDS: Metoprolol Succinate 50 MG Tab.ER PO SCH ×2 (10:22→11:46)
[2021-10-13] MEDS: Finasteride 5 MG Tab PO SCH (10:23)
[2021-10-13] MEDS: Apixaban 2.5 MG Tab PO SCH ×2 (10:23→21:16)
[2021-10-13] MEDS: Cholestyramine/Sucrose Powder 4 GM Packet PO SCH (10:26)
[2021-10-13] MEDS: Midodrine 5 MG Tab PO SCH ×2 (10:28→16:29)
[2021-10-13] MEDS: Sodium Chloride 0.65% Nasal Spray 45 ML Bottle NAS SCH ×2 (10:31→21:16)
[2021-10-13] MEDS: Nystatin Crm 30 GM Tube TOP SCH ×3 (10:32→21:16)
[2021-10-13] MEDS: Doxycycline 100 MG Cap PO SCH ×2 (13:31→21:17)
[2021-10-13] MEDS: Metoprolol Succinate 25 MG Tab.ER PO SCH (16:30)
[2021-10-13] MEDS: Fluconazole 150 MG Tab PO SCH (16:30)
[2021-10-13] MEDS: Levofloxacin/Dextrose 5%-Water 50 ML IV SCH (19:45)
[2021-10-13] MEDS: Multivitamin Tab PO SCH (21:17)
[2021-10-14] MEDS: Midodrine 5 MG Tab PO SCH ×3 (06:56→17:13)
[2021-10-14] MEDS: Spironolactone 25 MG Tab PO SCH (09:04)
[2021-10-14] MEDS: Apixaban 2.5 MG Tab PO SCH ×2 (09:05→20:50)
[2021-10-14] MEDS: Tamsulosin 0.4 MG Cap.ER PO SCH (09:05)
[2021-10-14] MEDS: Furosemide 20 MG Tab PO SCH (09:05)
[2021-10-14] MEDS: Doxycycline 100 MG Cap PO SCH ×2 (09:05→20:50)
[2021-10-14] MEDS: Metoprolol Succinate 25 MG Tab.ER PO SCH (09:06)
[2021-10-14] MEDS: Finasteride 5 MG Tab PO SCH (09:06)
[2021-10-14] MEDS: Sodium Chloride 0.65% Nasal Spray 45 ML Bottle NAS SCH ×2 (09:10→20:50)
[2021-10-14] MEDS: Nystatin Crm 30 GM Tube TOP SCH ×3 (09:10→20:50)
[2021-10-14] MEDS: Cholestyramine/Sucrose Powder 4 GM Packet PO SCH (12:00)
[2021-10-14] MEDS ORDERED: Fluconazole 150 MG Tab PO SCH (14:00)
[2021-10-14] MEDS: Levofloxacin/Dextrose 5%-Water 50 ML IV SCH (17:27)
[2021-10-14] MEDS: Multivitamin Tab PO SCH (20:50)
[2021-10-15] MEDS: Midodrine 5 MG Tab PO SCH ×3 (06:31→17:02)
[2021-10-15] MEDS: Apixaban 2.5 MG Tab PO SCH ×2 (09:59→21:13)
[2021-10-15] MEDS: Tamsulosin 0.4 MG Cap.ER PO SCH (10:00)
[2021-10-15] MEDS: Furosemide 20 MG Tab PO SCH (10:00)
[2021-10-15] MEDS: Vancomycin 125 MG Cap PO SCH (10:02)
[2021-10-15] MEDS: Finasteride 5 MG Tab PO SCH (10:04)
[2021-10-15] MEDS: Cephalexin 500 MG Cap PO SCH ×3 (10:05→21:13)
[2021-10-15] MEDS: Nystatin Crm 30 GM Tube TOP SCH ×3 (10:06→21:13)
[2021-10-15] MEDS: Sodium Chloride 0.65% Nasal Spray 45 ML Bottle NAS SCH ×2 (10:06→21:13)
[2021-10-15] MEDS: Metoprolol Succinate 25 MG Tab.ER PO SCH (10:17)
[2021-10-15] MEDS: Cholestyramine/Sucrose Powder 4 GM Packet PO SCH (11:19)
[2021-10-15] MEDS: Levofloxacin/Dextrose 5%-Water 50 ML IV SCH (17:01)
[2021-10-15] MEDS: Multivitamin Tab PO SCH (21:13)
[2021-10-16] MEDS: Midodrine 5 MG Tab PO SCH ×3 (07:17→16:51)
[2021-10-16] MEDS: Metoprolol Succinate 25 MG Tab.ER PO SCH (09:18)
[2021-10-16] MEDS: Apixaban 2.5 MG Tab PO SCH ×2 (09:18→20:16)
[2021-10-16] MEDS: Furosemide 20 MG Tab PO SCH (09:18)
[2021-10-16] MEDS: Finasteride 5 MG Tab PO SCH (09:19)
[2021-10-16] MEDS: Cephalexin 500 MG Cap PO SCH ×3 (09:19→20:16)
[2021-10-16] MEDS: Nystatin Crm 30 GM Tube TOP SCH ×3 (09:20→20:16)
[2021-10-16] MEDS: Sodium Chloride 0.65% Nasal Spray 45 ML Bottle NAS SCH ×2 (09:20→20:16)
[2021-10-16] MEDS: Tamsulosin 0.4 MG Cap.ER PO SCH (09:21)
[2021-10-16] MEDS: Cholestyramine/Sucrose Powder 4 GM Packet PO SCH (11:03)
[2021-10-16] MEDS: Multivitamin Tab PO SCH (20:16)
[2021-10-17] MEDS: Midodrine 5 MG Tab PO SCH ×3 (06:49→17:10)
[2021-10-17] MEDS ORDERED: traMADol 50 MG Tab PO PRN (07:31)
[2021-10-17] MEDS: Sodium Chloride 0.65% Nasal Spray 45 ML Bottle NAS SCH ×2 (09:18→21:04)
[2021-10-17] MEDS: Vancomycin 125 MG Cap PO SCH (09:19)
[2021-10-17] MEDS: Metoprolol Succinate 25 MG Tab.ER PO SCH (09:19)
[2021-10-17] MEDS: Cephalexin 500 MG Cap PO SCH ×3 (09:19→21:04)
[2021-10-17] MEDS: Finasteride 5 MG Tab PO SCH (09:19)
[2021-10-17] MEDS: Furosemide 20 MG Tab PO SCH (09:19)
[2021-10-17] MEDS: Apixaban 2.5 MG Tab PO SCH ×2 (09:19→21:04)
[2021-10-17] MEDS: Tamsulosin 0.4 MG Cap.ER PO SCH (09:19)
[2021-10-17] MEDS: Cholestyramine/Sucrose Powder 4 GM Packet PO SCH (11:17)
[2021-10-17] MEDS: Multivitamin Tab PO SCH (21:04)
[2021-10-18] MEDS: Midodrine 5 MG Tab PO SCH (07:58)
[2021-10-18] MEDS: Apixaban 2.5 MG Tab PO SCH (08:49)
[2021-10-18] MEDS: Metoprolol Succinate 25 MG Tab.ER PO SCH (08:52)
[2021-10-18] MEDS: Furosemide 20 MG Tab PO SCH (08:53)
[2021-10-18] MEDS: Tamsulosin 0.4 MG Cap.ER PO SCH (08:53)
[2021-10-18] MEDS: Finasteride 5 MG Tab PO SCH (08:53)
[2021-10-18] MEDS: Cephalexin 500 MG Cap PO SCH (08:53)
[2021-10-18] MEDS: Sodium Chloride 0.65% Nasal Spray 45 ML Bottle NAS SCH (08:58)
[2021-10-18 09:02] VITALS: BP 108/62
[2021-10-18 09:03] VITALS: PULSE 90
[2021-10-20] MEDS ORDERED: Fluconazole 150 MG Tab PO SCH (09:00)
== END 2021-10-18 10:00 | DRG 689 ==
LOC: JD.ED 07:55 → JD.MS 10:39
PROVIDERS: ADMIT Internal Medicine Cardiovascular Disease; ATTEND Internal Medicine
DX: N30.01 Acute cystitis with hematuria (principal); L89.301 Pressure ulcer of unspecified buttock, stage 1; R41.0 Disorientation, unspecified; R44.1 Visual hallucinations; Z86.73 Personal history of transient ischemic attack (TIA), and cerebral infarction without residual deficits; A41.9 Sepsis, unspecified organism; J96.01 Acute respiratory failure with hypoxia; E78.00 Pure hypercholesterolemia, unspecified; I11.0 Hypertensive heart disease with heart failure; R44.3 Hallucinations, unspecified; N40.1 Benign prostatic hyperplasia with lower urinary tract symptoms; R33.9 Retention of urine, unspecified; Z85.46 Personal history of malignant neoplasm of prostate; M19.90 Unspecified osteoarthritis, unspecified site; D84.9 Immunodeficiency, unspecified; C79.51 Secondary malignant neoplasm of bone; C77.9 Secondary and unspecified malignant neoplasm of lymph node, unspecified; N17.9 Acute kidney failure, unspecified; I13.0 Hypertensive heart and chronic kidney disease with heart failure and stage 1 through stage 4 chronic kidney disease, or unspecified chronic kidney disease; Z93.6 Other artificial openings of urinary tract status; Z20.822 Contact with and (suspected) exposure to COVID-19; Z51.5 Encounter for palliative care; N40.0 Benign prostatic hyperplasia without lower urinary tract symptoms; E66.9 Obesity, unspecified; B96.89 Other specified bacterial agents as the cause of diseases classified elsewhere; I50.9 Heart failure, unspecified; E78.5 Hyperlipidemia, unspecified; L89.302 Pressure ulcer of unspecified buttock, stage 2; C61 Malignant neoplasm of prostate; I48.91 Unspecified atrial fibrillation; D53.9 Nutritional anemia, unspecified; N18.32 Chronic kidney disease, stage 3b; Z68.36 Body mass index [BMI] 36.0-36.9, adult; Z79.899 Other long term (current) drug therapy; Z79.1 Long term (current) use of non-steroidal anti-inflammatories (NSAID); Z79.2 Long term (current) use of antibiotics; Z79.01 Long term (current) use of anticoagulants; Z95.2 Presence of prosthetic heart valve; Z87.442 Personal history of urinary calculi
CPT/HCPCS: 36415; 80053; 83605; 83880; 84484; 85025; 87040 ×2; 93005; 99285; U0002; 51701; 51702; 51798; 80048; 83735; 86140; 87070; 87075; 87077; 87186; 87205; 93010; 97110-GP; 97162-GP; 97530-GP; 99284; A9270-GY; J0696; J1940; J1956; J3475; J3490; J7512